=== PATIENT | male | born 1930 | race Caucasian/White ===

== ENCOUNTER 2016-11-03 05:47 | Emergency (ER) | payer MEDICARE ==
[~2016-11-03] VITALS: Ht 175.3 cm; Wt 60.0 kg
[~2016-11-03 05:47] MED LIST: AMLO5 PO; APIX5TAB PO; CITA10TA4 PO; FERR1TAB36 PO; LEVO75TA3 PO; OMEG100037 PO; PANT20TA2 PO; SIMV80TA PO; TOPR25TA PO; VITA100064 PO
[2016-11-03 06:06] VITALS: BP 151/76; PULSE 61; RESP 18; TEMP 98.2; O2SAT 99
[2016-11-03 06:12] VITALS: RESP 16
--- NOTE | 2016-11-03 06:13 | PD ---
HPI Chief Complaint: Fall Time Seen by Provider: 05:55 Travel History International Travel<30 days: No Contact w/Intl Traveler<30days: No Traveled to known affect area: No History of Present Illness HPI The patient is 86 year old male who presents to the [facility] emergency department with a history of reportedly falling at his snf prior to arrival. The snf staff reported to ambulance services they heard him fall. He has a history of an unsteady gait. The patient is on Eliquis for unknown reason, however the patient does have a history of complete heart block , bradycardia status post pacemaker placement. The patient was recently admitted to the hospital related to severe sepsis with positive blood cultures and an initial 2-D echo that showed possible heart valve vegetations, however a LEE was done which was negative for vegetations. The patient was discharged to the snf for rehabilitation. The patient was continued on Eliquis. The patient was noted prior to arrival to have a 2 cm laceration to the right baptism. The patient denies having any neck pain, however en route to this facility was complaining of neck pain to ambulance services. The patient reports having right shoulder pain currently. The patient's blood sugar prior to arrival was 106. According to ambulance services the patient also fell at the snf 3 days ago. The patient's vital signs prior to her arrival were reportedly unremarkable. The patient denies any other acute complaints currently, however the patient does have a known history of dementia. The patient is following all commands. He is oriented to person. COUNT INCLUDES THE [facility] Past Medical History Narrative Medical The patient's past medical history is significant for coronary artery disease, history of complete heart block status post pacemaker placement, history of being anticoagulated, history of lymphoma, arthritis, hyperlipidemia, acid reflux, hypertension. Hx Anticoagulant Therapy: Yes (ELIQUIS) Arthritis: Yes Autoimmune Disease: No Blood Disorders: No Cancer: Yes (NON HODGEKINS LYMPHOMA) Cardiovascular Problems: Yes (PACER) High Cholesterol: Yes Chemotherapy: Yes (11-02-03 TO 06-02-04) Diminished Hearing: No Endocrine: No Gastrointestinal Disorders: Yes GERD: Yes Genitourinary: Yes Hiatal Hernia: Yes Hypertension: Yes Musculoskeletal: Yes Neurologic: No Psychiatric: No Reproductive: No Respiratory: Yes (SINUS) Myocardial Infarction: Yes Radiation Therapy: Yes (2003) Thyroid Disease: Yes Past Surgical History Narrative Surgical The patient's past surgical history is significant for a total knee replacement on the left and right, pacemaker placement, right hip replacement, left hip replacement, prostate cancer related surgery, abdominal or uterine work aneurysm repair in March 2016. Cardiac Surgery: Yes (PACEMAKER PLACEMENT) Genitourinary Surgery: Yes Joint Replacement: Yes (BILAT HIP/BILAT KNEE) Pacemaker: Yes ([employer] 01/04/2015 REF#[id number] LOT#[id number]) Other Surgery: Yes (THROAT BX) Social History Alcohol Use: Yes (OCCASIONALLY) Tobacco Use: No (HX OF 1/2 PPD 25 YEARS AGO) Substance Use: No Allergies-Medications (Allergen,Severity, Reaction): Coded Allergies: No Known Allergies (Verified , 10/21/16) Reported Meds & Prescriptions Reported Meds & Active Scripts Active Reported Citalopram (Citalopram Hydrobromide) 10 Mg Tab 10 Mg PO DAILY Zocor (Simvastatin) 80 Mg Tab 80 Mg PO DAILY Eliquis (Apixaban) 5 Mg Tab 5 Mg PO BID Metoprolol Succinate ER 24 HR (Metoprolol Succinate) 25 Mg Tab 25 Mg PO DAILY [place]-3 Fish Oil/Vitamin (Fish Oil-Cholecalciferol) 1,000-1,000 Mg Cap 1 Cap PO DAILY Ferrous Sulfate 325 Mg Tab 325 Mg PO DAILY Levothyroxine (Levothyroxine Sodium) 75 Mcg Tab 75 Mcg PO DAILY Protonix (Pantoprazole Sodium) 20 Mg Tab 20 Mg PO DAILY Amlodipine (Amlodipine Besylate) 2.5 Mg Tab 2.5 Mg PO DAILY Review of Systems Except as stated in HPI: all other systems reviewed are Neg General / Constitutional: No: Fever Eyes: No: Visual changes HENT: Positive: Neck Pain, No: Headaches, Neck Stiffness Cardiovascular: No: Chest Pain or Discomfort Respiratory: No: Shortness of Breath Gastrointestinal: No: Abdominal Pain Genitourinary: No: Dysuria Musculoskeletal: No: Pain Skin: No Rash Neurologic: Positive: Headache, No: Weakness, Focal Abnormalities, Change in Mentation, Slurred Speech, Sensory Disturbance Psychiatric: No: Depression Endocrine: No: Polydipsia Hematologic/Lymphatic: No: Easy Bruising Physical Exam Narrative General: The patient is a well-developed well-nourished male in no acute distress. The patient is brought in by ambulance services in a cervical collar Head is normocephalic, evidence of trauma to the right baptism with a 2 cm laceration noted, no active bleeding.. No facial bone tenderness or increased facial bone mobility noted on palpation. Eyes: EOMI, pupils are equal round and reactive to light. Nose: Midline septum with pink mucous membranes Mouth: Dentition unremarkable. Moist mucus membranes. Posterior oropharynx is not erythematous. No tonsillar hypertrophy. Uvula midline. Airway patent. Neck: The patient is immobilized in a cervical collar. No tracheal deviation. The trachea appears midline. Cardiovascular: Regular rate and rhythm without murmurs, gallops, or rubs. Lungs: Clear to auscultation bilaterally. No wheezes, rhonchi, or rales. No chest wall tenderness to palpation. No erythema or ecchymosis noted. No crepitus , step off, or flail segment noted. Abdomen: Soft, without tenderness to palpation in all 4 quadrants of the abdomen. No guarding, rebound, or rigidity. Negative [place] sign. Extremities: No clubbing, cyanosis, or edema. 2+ pulses in all 4 extremities. No extremity tenderness or deformity noted on palpation or passive/ active range of motion, except in the area of interest, the right shoulder, the patient has no deformity or crepitus. The patient does however report tenderness on palpation of the deltoid area, proximal humerus on the right. The patient has less than 3 second capillary refill, intact sensation over all fingertips. Back: No spinous process tenderness to palpation. No costovertebral angle tenderness to palpation. No erythema or ecchymosis. Neurologic Exam: Cranial nerves 2-12 were intact on exam. Strength is 5/5 in all 4 extremities. No sensory deficits noted. Data Data Last Documented VS Vital Signs Date Time Temp Pulse Resp B/P Pulse Ox O2 Delivery O2 Flow Rate FiO2 11/03/16 06:12 16 Room Air 11/03/16 06:08 61 11/03/16 06:06 98.2 151/76 99 Orders Electrocardiogram (11/03/16 06:00) Complete Blood Count With Diff (11/03/16 06:00) Comprehensive Metabolic Panel (11/03/16 06:00) Prothrombin Time / Inr (Pt) (11/03/16 06:00) Act Partial Throm Time (Ptt) (11/03/16 06:00) Urinalysis - C+S If Indicated (11/03/16 06:00) Chest, Single Ap (11/03/16 06:00) Ct Brain W/O Iv Contrast(Rout) (11/03/16 06:00) Iv Access Insert/Monitor (11/03/16 06:00) Ecg Monitoring (11/03/16 06:00) Oximetry (11/03/16 06:00) Ct Cerv Spine W/O Contrast (11/03/16 ) Pelvis, Ap Only (Routine) (11/03/16 06:00) Shoulder, Complete (>2vws) (11/03/16 06:00) Cefazolin Inj (Ancef Inj) (11/03/16 06:15) Sodium Chlor 0.9% 1000 Ml Inj (Ns 1000 M (11/03/16 06:15) Lidocai-Epi 1%-1:100,000 Inj (Xylocaine- (11/03/16 06:15) Labs Laboratory Tests Test 11/03/16 06:12 White Blood Count 9.8 TH/MM3 Red Blood Count 4.45 MIL/MM3 Hemoglobin 12.2 GM/DL Hematocrit 37.1 % Mean Corpuscular Volume 83.3 FL Mean Corpuscular Hemoglobin 27.3 PG Mean Corpuscular Hemoglobin 32.8 % Concent Red Cell Distribution Width 17.5 % Platelet Count 187 TH/MM3 Mean Platelet Volume 8.4 FL Neutrophils (%) (Auto) 82.0 % Lymphocytes (%) (Auto) 5.4 % Monocytes (%) (Auto) 8.8 % Eosinophils (%) (Auto) 3.0 % Basophils (%) (Auto) 0.8 % Neutrophils # (Auto) 8.0 TH/MM3 Lymphocytes # (Auto) 0.5 TH/MM3 Monocytes # (Auto) 0.9 TH/MM3 Eosinophils # (Auto) 0.3 TH/MM3 Basophils # (Auto) 0.1 TH/MM3 CBC Comment DIFF FINAL Differential Comment Prothrombin Time 11.9 SEC Prothromb Time International 1.1 RATIO Ratio Activated Partial 26.7 SEC Thromboplast Time Sodium Level 137 MEQ/L Potassium Level 3.8 MEQ/L Chloride Level 102 MEQ/L Carbon Dioxide Level 24.9 MEQ/L Anion Gap 10 MEQ/L Blood Urea Nitrogen 22 MG/DL Creatinine 1.09 MG/DL Estimat Glomerular Filtration 64 ML/MIN Rate Random Glucose 105 MG/DL Calcium Level 9.0 MG/DL Total Bilirubin 0.6 MG/DL Aspartate Amino Transf 25 U/L (AST/SGOT) Alanine Aminotransferase 19 U/L (ALT/SGPT) Alkaline Phosphatase 134 U/L Total Protein 6.1 GM/DL Albumin 3.1 GM/DL MDM Medical Decision Making Medical Screen Exam Complete: Yes Emergency Medical Condition: Yes Medical Record Reviewed: Yes Differential Diagnosis Intracranial hemorrhage, versus cervical spine injury, versus facial laceration , versus intrathoracic trauma, versus pelvic trauma Narrative Course During the course of the patients emergency department visit, the patients history, examination, and differential diagnosis were reviewed with the patient. The patient had IV access obtained and blood work sent for analysis. The patient was placed on a faith doctor with oximetry and blood pressure monitoring. An EKG was done on arrival. The patient's EKG shows a paced rhythm of 64, no acute ST segment changes. The patient's electronic medical record was reviewed. A review of the electronic medical record reveals that he had his tetanus last updated at this facility in 2013. CT scan of the head and neck was ordered, chest x-ray, pelvic x-ray was ordered The patient was provided Ancef 1 g IV, normal saline at 75 mL per hour. The patients laboratory studies were reviewed and remarkable for a white count of 9.8, hemoglobin 12.2, platelets 187 with 82 neutrophils lymphocytes 5.4, monocytes 8.8, CMP is remarkable for BUN of 22, GFR 64, alkaline phosphatase 134 , albumin 3.1, PT 11.9, INR 1.1, PTT 26.7 Radiology studies were reviewed and remarkable for a right shoulder x-ray that shows a chronic rotator cuff injury, no acute abnormality, chest x-ray shows no acute abnormality, pelvic x-ray shows no acute abnormality. CT scan of the brain was read as showing no acute intracranial abnormality, atrophy and chronic small vessel ischemic change, small arachnoid cyst involving the left middle cranial fossa. CT scan of the C-spine showed no acute abnormality. The patient verbally consented to the repair and the laceration along the right baptism. This was repaired by me. The patient tolerated the procedure well. The patient will be discharged back to his [facility] facility for continued rehabilitation. The snf will again be instructed regarding the importance of close monitoring and fall precautions. The patient is resting comfortably and feels better, is alert and in no distress. The patients results and examination findings were discussed with the patient. The repeat examination is unremarkable and benign. The history, exam, diagnostic testing, and current condition do not suggest any significant pathology to warrant further testing, continued ED treatment, admission, or surgical evaluation at this point. The vital signs have been stable. The patient does not have uncontrollable pain, intractable vomiting, or other significant symptoms. The patient's condition is stable and appropriate for discharge. The patient will pursue further outpatient evaluation with a primary care physician or other designated or consulting physician as indicated in the discharge instructions. The patient expressed understanding and was agreeable with this plan. Procedures Procedure Narrative LACERATION LOCATION: Right baptism LENGTH: 2 cm NUMBER OF STITCHES/CARY: 5 sutures REPAIR: The area of the laceration was prepped with Betadine and sterilely draped. The laceration was infiltrated with 1% lidocaine with epinephrine, 4 cc. The wound was copiously irrigated and explored without evidence of foreign body, tendon injury or neurovascular injury. The wound was closed using 5-0 Ethilon. This was a single layer repair. A sterile dressing was applied. The patient was advised to keep the dressing clean and dry. Patient tolerated the procedure well. Diagnosis Primary Impression: Fall Qualified Code: W19.XXXA - Fall, initial encounter Additional Impression: Facial laceration Qualified Code: S01.81XA - Facial laceration, initial encounter Referrals: Primary Care Physician 1 day Patient Instructions: Facial Laceration (ED), Fall Prevention (ED), Fall Prevention for Older Adults (ED), General Instructions Additional Instructions: The patient is instructed to have sutures removed in 5 days. Med/Other Pt SpecificInfo: No Change to Meds Disposition: 03 DISCHARGE TO SNF Condition: Stable Zara Humphries MD Nov 03, 2016 06:13
[2016-11-03] MEDS ORDERED: SODIUM CHLOR 0.9% 1000 ML INJ 1,000 ML IV SCH (06:15)
[2016-11-03] MEDS ORDERED: LIDOCAINE 1%/EPINEPHrine 1:100,000 SOLN 20 ML VIAL INFIL ONE (06:15)
[2016-11-03 06:24] LABS: BASOPHIL # 0.1 TH/MM3 (0-0.2); BASOPHIL % 0.8 % (0.0-2.0); EOSINOPHIL # 0.3 TH/MM3 (0-0.4); HEMATOCRIT 37.1 % (39.0-51.0); HEMO FLAGS DIFF FINAL; LYMPH % 5.4 % (9.0-44.0); LYMPHOCYTE # 0.5 TH/MM3 (1.0-4.8); MEAN CELL VOLUME 83.3 FL (80.0-100.0); MEAN CORPUSCULAR HEMOGLOBIN 27.3 PG (27.0-34.0); MEAN CORPUSCULAR HGB CONC 32.8 % (32.0-36.0); MONO % 8.8 % (0.0-8.0); PLATELET COUNT 187 TH/MM3 (150-450); RED BLOOD COUNT 4.45 MIL/MM3 (4.50-5.90); RED CELL DISTRIBUTION WIDTH 17.5 % (11.6-17.2); WHITE BLOOD COUNT 9.8 TH/MM3 (4.0-11.0)
[2016-11-03] MEDS ORDERED: CITA10TA4 PO (06:26)
[2016-11-03] MEDS ORDERED: PANT20 PO (06:26)
[2016-11-03] MEDS ORDERED: LEVO75TA3 PO (06:26)
[2016-11-03] MEDS ORDERED: FERR325T PO (06:26)
[2016-11-03] MEDS ORDERED: ZOCO80TA PO (06:26)
[2016-11-03] MEDS ORDERED: AMLO2.5T PO (06:26)
[2016-11-03] MEDS ORDERED: APIX5TAB PO (06:26)
[2016-11-03] MEDS ORDERED: METO25TA6 PO (06:26)
[2016-11-03] MEDS ORDERED: OMEGCAP PO (06:26)
[2016-11-03 06:36] LABS: ALT (GPT) 19 U/L (12-78); ANION GAP 10 MEQ/L (5-15); APTT (PATIENT) 26.7 SEC (24.3-30.1); AST (GOT) 25 U/L (15-37); BICARBONATE 24.9 MEQ/L (21.0-32.0); BLOOD UREA NITROGEN 22 MG/DL (7-18); CHLORIDE 102 MEQ/L (98-107); GLOMERULAR FILTRATION RATE 64 ML/MIN (>89); INTERNATIONAL NORMALIZED RATIO 1.1 RATIO; POTASSIUM 3.8 MEQ/L (3.5-5.1); PROTHROMBIN TIME - PATIENT 11.9 SEC (9.8-11.6); SODIUM (NA) 137 MEQ/L (136-145)
[2016-11-03 06:38] LABS: ALKALINE PHOSPHATASE 134 U/L (45-117); TOTAL BILIRUBIN ADULT 0.6 MG/DL (0.2-1.0)
--- NOTE | 2016-11-03 06:59 | RADRPT ---
EXAM DATE/TIME: 11/03/2016 06:21 [facility] COMPARISON: CHEST SINGLE AP, October 21, 2016, 21:40. INDICATIONS : Pt fell, unknown injury. MEDICAL HISTORY : Hypertension. Myocardial infarction. Gastroesophageal reflux disease. Non-Hodgkins Lymphoma, Arth ritis SURGICAL HISTORY : Pacemaker. Throat biopsy ENCOUNTER: Initial ACUITY: 1 day PAIN SCORE: 8/10 LOCATION: Bilateral chest FINDINGS: A single portable frontal view the chest shows cardiomegaly with without pulmonary vascular engorgeme nt. No infiltrate or effusion. Pacing device overlies the left chest. Bony structures are unremarkabl e. CONCLUSION: No acute cardiopulmonary disease. Edouard Senior Jr., MD on November 03, 2016 at 6:57 Board Certified Radiologist. This report was verified electronically.
--- NOTE | 2016-11-03 07:00 | RADRPT ---
EXAM DATE/TIME: 11/03/2016 06:22 [facility] COMPARISON: No previous studies available for comparison. INDICATIONS : Pt fell, unknown injury. MEDICAL HISTORY : Hypertension. Myocardial infarction. Gastroesophageal reflux disease. Non-Hodgkins Lymphoma, Arth ritis SURGICAL HISTORY : Pacemaker. Throat biopsy ENCOUNTER: Initial ACUITY: 1 day PAIN SCORE: 9/10 LOCATION: Right Shoulder FINDINGS: 3 views of the right shoulder show a high riding humeral head. No fracture or dislocation. Degenerati ve changes involving a.c. joint ankle and the humeral joint. CONCLUSION: 1. No acute abnormality. 2. Chronic rotator cuff injury. Edouard Senior Jr., MD on November 03, 2016 at 6:58 Board Certified Radiologist. This report was verified electronically.
--- NOTE | 2016-11-03 07:01 | RADRPT ---
EXAM DATE/TIME: 11/03/2016 06:27 [facility] COMPARISON: PELVIS AP ONLY, October 14, 2014, 22:26. INDICATIONS : Pt fell, Unknown injury MEDICAL HISTORY : Hypertension. Myocardial infarction. Gastroesophageal reflux disease. Non-Hodgkins Lymphoma, Arth ritis SURGICAL HISTORY : Pacemaker. Throat biopsy ENCOUNTER: Initial ACUITY: 1 day PAIN SCORE: 8/10 LOCATION: Bilateral pelvis FINDINGS: 2 views of the pelvis reveal bilateral hip prostheses in good position. A degenerative lumbar spine. No fractures or dislocations. Atherosclerotic calcifications. Vascular stents and surgical clips over lie the pelvis. CONCLUSION: 1. No acute abnormality. Edouard Senior Jr., MD on November 03, 2016 at 6:59 Board Certified Radiologist. This report was verified electronically.
--- NOTE | 2016-11-03 07:08 | RADRPT ---
EXAM DATE/TIME: 11/03/2016 06:30 [facility] COMPARISON: CT BRAIN W/O CONTRAST, October 21, 2016, 21:35. INDICATIONS : Trauma; fall. RADIATION DOSE: 56.35 CTDIvol (mGy) MEDICAL HISTORY : Hypertension. Lymphoma. Cardiovascular disease SURGICAL HISTORY : Pacemaker. ENCOUNTER: Initial ACUITY: 1 day PAIN SCALE: 0/10 LOCATION: cranial TECHNIQUE: Multiple contiguous axial images were obtained of the head. Using automated exposure control and adj ustment of the mA and/or kV according to patient size, radiation dose was kept as low as reasonably a chievable to obtain optimal diagnostic quality images. FINDINGS: Atrophy. Periventricular low attenuation change involving both cerebral hemispheres. Small arachnoid cyst involving the middle cranial fossa on the left. This is stable. It measures approximately 3 cm. No hemorrhage, mass, or infarction. The ventricles are normal in size. Calvarium is intact. CONCLUSION: 1. No acute intracranial abnormality. 2. Atrophy and chronic small vessel ischemic change. 3. Small arachnoid cyst involving the left middle cranial fossa. Edouard Senior Jr., MD on November 03, 2016 at 7:00 Board Certified Radiologist. This report was verified electronically.
--- NOTE | 2016-11-03 07:12 | RADRPT ---
EXAM DATE/TIME: 11/03/2016 06:30 [facility] COMPARISON: No previous studies available for comparison. INDICATIONS : Trauma; fall. RADIATION DOSE: 34.77 CTDIvol (mGy) MEDICAL HISTORY : Hypertension. Lupus. Cardiovascular disease SURGICAL HISTORY : Pacemaker. ENCOUNTER: Initial ACUITY: 1 day PAIN SCALE: 0/10 LOCATION: neck TECHNIQUE: Volumetric scanning of the cervical spine was performed. Multiplanar reconstructions in the sagittal, coronal and oblique axial planes were performed. Using automated exposure control and adjustment o f the mA and/or kV according to patient size, radiation dose was kept as low as reasonably achievable to obtain optimal diagnostic quality images. FINDINGS: VERTEBRAE: Normal vertebral body height. ALIGNMENT: There is a grade 1 anterolisthesis of C4 on C5. Diffuse calcified plaque involving the carotid arteries bilaterally. C2-C3: The bony spinal canal is normal in size. No evidence of disc bulge or herniation. Bony uncovertebral hypertrophy is seen bilaterally generating bilateral neural foraminal narrowing. C3-C4: The bony spinal canal is normal in size. No evidence of disc bulge or herniation. Bony uncovertebral hypertrophy is seen bilaterally generating bilateral neural foraminal narrowing. C4-C5: The bony spinal canal is normal in size. No evidence of disc bulge or herniation. Bony uncovertebral hypertrophy is seen bilaterally generating bilateral neural foraminal narrowing. C5-C6: The bony spinal canal is normal in size. No evidence of disc bulge or herniation. Bony uncovertebral hypertrophy is seen bilaterally generating bilateral neural foraminal narrowing. C6-C7: The bony spinal canal is normal in size. No evidence of disc bulge or herniation. The neural forami na are bilaterally patent. C7-T1: The bony spinal canal is normal in size. No evidence of disc bulge or herniation. The neural forami na are bilaterally patent. CONCLUSION: 1. No fracture or dislocation. 2. Degenerative changes. 3. Significant carotid artery atherosclerotic calcifications. Edouard Senior Jr., MD on November 03, 2016 at 7:07 Board Certified Radiologist. This report was verified electronically.
[2016-11-03 11:09] VITALS: BP 148/76; PULSE 66; RESP 16; O2SAT 97
--- NOTE | 2016-11-03 18:25 | EKG ---
Date Performed: 11/03/2016 Time Performed: 05:58:40 PTAGE: 86 years EKG: ELECTRONIC VENTRICULAR PACEMAKER Since PREVIOUS TRACING , no significant change noted ABNORMAL RHYTHM ECG INTERPRETATION BASED O N A DEFAULT AGE OF 41 YEARS PREVIOUS TRACIN10/21/2016 22.23 DOCTOR: Kimberly Bronson Interpretating Date/Time 11/03/2016 18:23:38
== END 2016-11-03 11:10 ==
LOC: NEPE 05:47
DX: S01.81XA Laceration without foreign body of other part of head, initial encounter (principal); E78.00 Pure hypercholesterolemia, unspecified; I10 Essential (primary) hypertension; R94.31 Abnormal electrocardiogram [ECG] [EKG]; W18.39XA Other fall on same level, initial encounter; Y93.9 Activity, unspecified; Y92.129 Unspecified place in nursing home as the place of occurrence of the external cause; Z91.81 History of falling; Z79.01 Long term (current) use of anticoagulants
CPT/HCPCS: 12011; 70450; 71010; 72125; 72170; 73030; 80053; 85025; 85610; 85730; 93005; 96361; 96365; 99285; J0690; J7030

== ENCOUNTER 2016-11-11 16:28 | Inpatient (IN) | payer MEDICARE ==
[~2016-11-11] VITALS: Ht 177.8 cm; Wt 65.2 kg
[~2016-11-11 16:28] MED LIST changes: +AMLO2.5T PO; -FERR1TAB36 PO; +FERR325T PO; +METO25TA6 PO; -OMEG100037 PO; +OMEGCAP PO; +PANT20 PO; -PANT20TA2 PO; -SIMV80TA PO; -TOPR25TA PO; -VITA100064 PO; +ZOCO80TA PO
[2016-11-11 16:39] VITALS: BP 115/58; PULSE 63; RESP 17; TEMP 97.7; O2SAT 99
[2016-11-11 18:24] LABS: AUTOMATED NEUTROPHIL # 13.6 TH/MM3 (1.8-7.7); BASOPHIL % 0.2 % (0.0-2.0); EOSINOPHIL # 0.2 TH/MM3 (0-0.4); HEMATOCRIT 34.2 % (39.0-51.0); LYMPH % 1.7 % (9.0-44.0); LYMPHOCYTE # 0.3 TH/MM3 (1.0-4.8); MEAN CELL VOLUME 81.9 FL (80.0-100.0); MEAN CORPUSCULAR HEMOGLOBIN 26.5 PG (27.0-34.0); MEAN CORPUSCULAR HGB CONC 32.4 % (32.0-36.0); NEUT % 93.1 % (16.0-70.0); PLATELET COUNT 154 TH/MM3 (150-450); RED BLOOD COUNT 4.18 MIL/MM3 (4.50-5.90); RED CELL DISTRIBUTION WIDTH 17.8 % (11.6-17.2); WHITE BLOOD COUNT 14.7 TH/MM3 (4.0-11.0)
[2016-11-11 18:27] LABS: HEMO FLAGS AUTO DIFF
[2016-11-11 18:46] LABS: BICARBONATE 25.9 MEQ/L (21.0-32.0); POTASSIUM 3.2 MEQ/L (3.5-5.1)
[2016-11-11 18:59] LABS: BANDS 21 % (0-6); METAMYELOCYTES 1 % (0-1); NEUTROPHIL # MANUAL DIFF 14.1 TH/MM3 (1.8-7.7); OVALOCYTES 1+ (NORMAL); PLATELET ESTIMATE SMEAR NORMAL (NORMAL); PLATELET MORPHOLOGY NORMAL (NORMAL); POLYS (SEG NEUTROPHILS) 74 % (16-70); SCAN/DIFF FINAL DIFF MANUAL; WBC DIFF SAMPLE 100
[2016-11-11] MEDS ORDERED: PIPERACIL-TAZO 2.25 GM PREMIX 50 ML IV ONE (19:15)
[2016-11-11] MEDS ORDERED: VANCOMYCIN INJ 1,000 MG in SODIUM CHLOR 0.9% 250 ML INJ 250 ML IV ONE (19:15)
--- NOTE | 2016-11-11 19:15 | PD ---
HPI Chief Complaint: Abnormal Results Time Seen by Provider: 19:15 Travel History International Travel<30 days: No Contact w/Intl Traveler<30days: No Traveled to known affect area: No History of Present Illness HPI 86 year old male with history of CAD, pacemaker placement, AAA status post repair in March 2016, dementia, lymphoma first diagnosed 14-15 years ago, acid reflux, hypothyroid disorder, left foot drop, osteoarthritis,and of skin cancer presents to the ED for evaluation from rehab. Per evac report the pt is dehydrated and staff was unable to administer IV fluids there, so he was to come here for IVF and labs. Pt does have a history of dementia and is a very poor historian. He appears weak and is very soft spoken; difficult to hear and understand. He had a previous admission 10/21/2016-10/30/2016 for sepsis. MSSA + blood cultures. Pt was to be discharged on IV cefazolin 2g every 8 hours until November 09. PFSH Past Medical History Hx Anticoagulant Therapy: Yes (ELIQUIS) Arthritis: Yes Autoimmune Disease: No Blood Disorders: No Cancer: Yes (NON H[place]GEKINS LYMPHOMA) Cardiovascular Problems: Yes (PACER) High Cholesterol: Yes Chemotherapy: Yes (11-02-03 TO 06-02-04) Diminished Hearing: No Endocrine: No Gastrointestinal Disorders: Yes GERD: Yes Genitourinary: Yes Hiatal Hernia: Yes Hypertension: Yes Musculoskeletal: Yes Neurologic: No Psychiatric: No Reproductive: No Respiratory: Yes (SINUS) Myocardial Infarction: Yes Radiation Therapy: Yes (2003) Thyroid Disease: Yes Past Surgical History Cardiac Surgery: Yes (PACEMAKER PLACEMENT) Genitourinary Surgery: Yes Joint Replacement: Yes (BILAT HIP/BILAT KNEE) Pacemaker: Yes ([employer] 01/04/2015 REF#[id number] LOT#[id number]) Other Surgery: Yes (THROAT BX) Social History Alcohol Use: Yes (OCCASIONALLY) Tobacco Use: No (HX OF 1/2 PPD 25 YEARS AGO) Substance Use: No Allergies-Medications (Allergen,Severity, Reaction): Coded Allergies: No Known Allergies (Verified , 10/21/16) Reported Meds & Prescriptions Reported Meds & Active Scripts Active Norvasc (Amlodipine Besylate) 5 Mg Tab 2.5 Mg PO DAILY Reported Citalopram (Citalopram Hydrobromide) 10 Mg Tab 10 Mg PO DAILY Zocor (Simvastatin) 80 Mg Tab 80 Mg PO DAILY Eliquis (Apixaban) 5 Mg Tab 5 Mg PO BID Metoprolol Succinate ER 24 HR (Metoprolol Succinate) 25 Mg Tab 25 Mg PO DAILY [place]-3 Fish Oil/Vitamin (Fish Oil-Cholecalciferol) 1,000-1,000 Mg Cap 1 Cap PO DAILY Ferrous Sulfate 325 Mg Tab 325 Mg PO DAILY Levothyroxine (Levothyroxine Sodium) 75 Mcg Tab 75 Mcg PO DAILY Protonix (Pantoprazole Sodium) 20 Mg Tab 20 Mg PO DAILY Amlodipine (Amlodipine Besylate) 2.5 Mg Tab 2.5 Mg PO DAILY Review of Systems ROS Limitations: Altered Mental Status Except as stated in HPI: all other systems reviewed are Neg Physical Exam Narrative GENERAL: Well-nourished elderly male patient, lying in bed, in no acute distress SKIN: Warm and dry. well approximated, healing 2cm laceration lateral to the right eyebrow with resolving right periorbital ecchymosis HEAD: Atraumatic. Normocephalic. EYES: Pupils equal and round. No scleral icterus. No injection or drainage. ENT: No nasal bleeding or discharge. Mucous membranes pink and dry. . NECK: Trachea midline. No JVD. CARDIOVASCULAR: Regular rate and rhythm. RESPIRATORY: No accessory muscle use. Diminished, likely due to poor inspiration effort. Breath sounds equal bilaterally. GASTROINTESTINAL: Abdomen soft, non-tender, nondistended. Hepatic and splenic margins not palpable. MUSCULOSKELETAL: No obvious deformities. No clubbing. No cyanosis. No edema. NEUROLOGICAL: Awake and alert. Oriented to self. No obvious cranial nerve deficits. Motor grossly within normal limits. Data Data Last Documented VS Vital Signs Date Time Temp Pulse Resp B/P Pulse Ox O2 Delivery O2 Flow Rate FiO2 11/11/16 20:47 98 Room Air 11/11/16 19:56 98.7 80 18 112/60 Orders Complete Blood Count With Diff (11/11/16 17:06) Basic Metabolic Panel (Bmp) (11/11/16 17:06) Electrocardiogram (11/11/16 19:05) Lactic Acid Sepsis Protocol (11/11/16 19:05) Ckmb (Isoenzyme) Profile (11/11/16 19:05) Troponin I (11/11/16 19:05) Urinalysis - C+S If Indicated (11/11/16 19:05) Blood Culture (11/11/16 19:05) Chest, Single Ap (11/11/16 19:05) Blood Glucose (11/11/16 19:05) Ecg Monitoring (11/11/16 19:05) Iv Access Insert/Monitor (11/11/16 19:05) Oximetry (11/11/16 19:05) Oxygen Administration (11/11/16 19:05) Piperacil-Tazo 2.25 Gm Premix (Zosyn 2.2 (11/11/16 19:15) Vancomycin Inj (Vancomycin Inj) (11/11/16 19:15) C Diff Toxin Pcr (11/11/16 19:43) Cath For Specimen (11/11/16 19:48) Admit Order (Ed Use Only) (11/11/16 21:10) Labs Laboratory Tests Test 11/11/16 11/11/16 11/11/16 18:05 19:50 20:50 White Blood Count 14.7 TH/MM3 Red Blood Count 4.18 MIL/MM3 Hemoglobin 11.1 GM/DL Hematocrit 34.2 % Mean Corpuscular Volume 81.9 FL Mean Corpuscular Hemoglobin 26.5 PG Mean Corpuscular Hemoglobin 32.4 % Concent Red Cell Distribution Width 17.8 % Platelet Count 154 TH/MM3 Mean Platelet Volume 8.0 FL Neutrophils (%) (Auto) 93.1 % Lymphocytes (%) (Auto) 1.7 % Monocytes (%) (Auto) 4.0 % Eosinophils (%) (Auto) 1.0 % Basophils (%) (Auto) 0.2 % Neutrophils # (Auto) 13.6 TH/MM3 Lymphocytes # (Auto) 0.3 TH/MM3 Monocytes # (Auto) 0.6 TH/MM3 Eosinophils # (Auto) 0.2 TH/MM3 Basophils # (Auto) 0.0 TH/MM3 CBC Comment AUTO DIFF Differential Total Cells 100 Counted Neutrophils % (Manual) 74 % Band Neutrophils % 21 % Lymphocytes % 2 % Monocytes % 2 % Neutrophils # (Manual) 14.1 TH/MM3 Metamyelocytes 1 % Differential Comment FINAL DIFF MANUAL Platelet Estimate NORMAL Platelet Morphology Comment NORMAL Ovalocytes 1+ Sodium Level 147 MEQ/L Potassium Level 3.2 MEQ/L Chloride Level 113 MEQ/L Carbon Dioxide Level 25.9 MEQ/L Anion Gap 8 MEQ/L Blood Urea Nitrogen 47 MG/DL Creatinine 1.25 MG/DL Estimat Glomerular Filtration 55 ML/MIN Rate Random Glucose 112 MG/DL Calcium Level 8.9 MG/DL Lactic Acid Level 1.2 mmol/L Total Creatine Kinase 86 U/L Troponin I 0.03 NG/ML Urine Color YELLOW Urine Turbidity HAZY Urine pH 6.0 Urine Specific [place] 1.017 Urine Protein TRACE mg/dL Urine Glucose (UA) NEG mg/dL Urine Ketones NEG mg/dL Urine Occult Blood MOD Urine Nitrite POS Urine Bilirubin NEG Urine Urobilinogen LESS THAN 2.0 MG/DL Urine Leukocyte Esterase LARGE Urine RBC 155 /hpf Urine WBC /hpf Urine WBC Clumps RARE Urine Squamous Epithelial <1 /hpf Cells Urine Bacteria MANY /hpf Microscopic Urinalysis Comment CATH-CULTURE IND MDM Medical Decision Making Medical Screen Exam Complete: Yes Emergency Medical Condition: Yes Medical Record Reviewed: Yes Differential Diagnosis Dehydration versus electrolyte abnormality versus UTI versus bacteremia versus pneumonia versus sepsis Narrative Course 86-year-old male presents to the emergency department for evaluation of possible dehydration and lab recheck. Patient is in rehabilitation. History of dementia. He is a poor historian. He is oriented to self. Patient is afebrile. Vital signs are stable. CBC is a leukocytosis of 14.7, left shift, neutrophil count of 13.6, bandemia of 21. BMP is with sodium of 147, potassium 3.2. Healing is 47. Lactic acid is 1.2. Troponin is 0.03. Urine has not yet been collected. Patient is covered with vancomycin and Zosyn for suspected sepsis, unknown source. Chest x-ray is without acute cardiopulmonary disease. I spoke with Dr. Humphries, my attending physician who also assessed the patient. I placed a call to Dr. Corado, the patient's attending. I spoke with Dr. Corado, urinalysis is not yet complete. Patient will be admitted to his service. Urinalysis is hazy with moderate local blood, positive nitrate, large leukocyte esterase, 155 RBC, innumerable WBC, rare WBC clumps, many bacteria. Culture is indicated. Sepsis Criteria SIRS Criteria (2 or more): WBC > 44529, < 4000 or > 10% bands Diagnosis Primary Impression: UTI (urinary tract infection) Qualified Code: N30.01 - Acute cystitis with hematuria Additional Impression: Hypokalemia Admitting Information Admitting Physician Requests: Admit Condition: Stable Eusebia Moran Nov 11, 2016 19:15
--- NOTE | 2016-11-11 19:35 | RADRPT ---
EXAM DATE/TIME: 11/11/2016 19:22 [facility] COMPARISON: CHEST SINGLE AP, November 03, 2016, 6:21. INDICATIONS : Short of breath. MEDICAL HISTORY : Hypertension. Myocardial infarction. Gastroesophageal reflux disease. Non- SURGICAL HISTORY : Pacemaker. ENCOUNTER: Initial ACUITY: 1 day PAIN SCORE: Non-responsive. LOCATION: Bilateral chest FINDINGS: Cardiomegaly. Clear lungs. Pacer device from a left subclavian transvenous approach noted. High ridin g humeral heads. Aortic calcification. CONCLUSION: No acute disease. Cuong Calderon MD on November 11, 2016 at 19:34 Board Certified Radiologist. This report was verified electronically.
[2016-11-11 19:56] VITALS: BP 112/60; PULSE 80; RESP 18; TEMP 98.7; O2SAT 98
[2016-11-11 20:47] VITALS: O2SAT 98
--- NOTE | 2016-11-11 20:56 | PD ---
Physical Exam Narrative General: The patient is, thin appearing male, in no acute distress. Head and Neck exam: Head is normocephalic atraumatic. The patient has older appearing abrasions over her forehead. Eyes: Pupils are equal round and reactive to light. Nose: Midline septum with pink mucous membranes Mouth: Dentition unremarkable. Moist mucus membranes. Posterior oropharynx is not erythematous. No tonsillar hypertrophy. Uvula midline. Airway patent. Neck: No palpable lymphadenopathy. No nuchal rigidity. No thyromegaly. Cardiovascular: Regular rate and rhythm without murmurs, gallops, or rubs. Lungs: Clear to auscultation bilaterally. No wheezes, rhonchi, or rales. Abdomen: Soft, without tenderness to palpation in all 4 quadrants of the abdomen. No guarding, rebound, or rigidity. Normal bowel sounds are audible. Extremities: No clubbing, cyanosis, or edema. 2+ pulses in all 4 extremities. Back: No spinous process tenderness to palpation. No costovertebral angle tenderness to palpation. Neurologic Exam: Cranial nerves 2-12 were intact on exam. Strength is 5/5 in all 4 extremities. No sensory deficits noted. The patient is oriented to person, however not place , time, or situation. Data Data Last Documented VS Vital Signs Date Time Temp Pulse Resp B/P Pulse Ox O2 Delivery O2 Flow Rate FiO2 11/11/16 21:08 62 15 138/64 97 Room Air 11/11/16 19:56 98.7 Orders Complete Blood Count With Diff (11/11/16 17:06) Basic Metabolic Panel (Bmp) (11/11/16 17:06) Electrocardiogram (11/11/16 19:05) Lactic Acid Sepsis Protocol (11/11/16 19:05) Ckmb (Isoenzyme) Profile (11/11/16 19:05) Troponin I (11/11/16 19:05) Urinalysis - C+S If Indicated (11/11/16 19:05) Blood Culture (11/11/16 19:05) Chest, Single Ap (11/11/16 19:05) Blood Glucose (11/11/16 19:05) Ecg Monitoring (11/11/16 19:05) Iv Access Insert/Monitor (11/11/16 19:05) Oximetry (11/11/16 19:05) Oxygen Administration (11/11/16 19:05) Piperacil-Tazo 2.25 Gm Premix (Zosyn 2.2 (11/11/16 19:15) Vancomycin Inj (Vancomycin Inj) (11/11/16 19:15) C Diff Toxin Pcr (11/11/16 19:43) Cath For Specimen (11/11/16 19:48) Admit Order (Ed Use Only) (11/11/16 21:10) Labs Laboratory Tests Test 11/11/16 11/11/16 11/11/16 11/11/16 18:05 19:50 20:50 21:07 White Blood Count 14.7 TH/MM3 Red Blood Count 4.18 MIL/MM3 Hemoglobin 11.1 GM/DL Hematocrit 34.2 % Mean Corpuscular Volume 81.9 FL Mean Corpuscular Hemoglobin 26.5 PG Mean Corpuscular Hemoglobin 32.4 % Concent Red Cell Distribution Width 17.8 % Platelet Count 154 TH/MM3 Mean Platelet Volume 8.0 FL Neutrophils (%) (Auto) 93.1 % Lymphocytes (%) (Auto) 1.7 % Monocytes (%) (Auto) 4.0 % Eosinophils (%) (Auto) 1.0 % Basophils (%) (Auto) 0.2 % Neutrophils # (Auto) 13.6 TH/MM3 Lymphocytes # (Auto) 0.3 TH/MM3 Monocytes # (Auto) 0.6 TH/MM3 Eosinophils # (Auto) 0.2 TH/MM3 Basophils # (Auto) 0.0 TH/MM3 CBC Comment AUTO DIFF Differential Total Cells 100 Counted Neutrophils % (Manual) 74 % Band Neutrophils % 21 % Lymphocytes % 2 % Monocytes % 2 % Neutrophils # (Manual) 14.1 TH/MM3 Metamyelocytes 1 % Differential Comment FINAL DIFF MANUAL Platelet Estimate NORMAL Platelet Morphology Comment NORMAL Ovalocytes 1+ Sodium Level 147 MEQ/L Potassium Level 3.2 MEQ/L Chloride Level 113 MEQ/L Carbon Dioxide Level 25.9 MEQ/L Anion Gap 8 MEQ/L Blood Urea Nitrogen 47 MG/DL Creatinine 1.25 MG/DL Estimat Glomerular Filtration 55 ML/MIN Rate Random Glucose 112 MG/DL Calcium Level 8.9 MG/DL Lactic Acid Level 1.2 mmol/L Total Creatine Kinase 86 U/L Troponin I 0.03 NG/ML Urine Color YELLOW Urine Turbidity HAZY Urine pH 6.0 Urine Specific [place] 1.017 Urine Protein TRACE mg/dL Urine Glucose (UA) NEG mg/dL Urine Ketones NEG mg/dL Urine Occult Blood MOD Urine Nitrite POS Urine Bilirubin NEG Urine Urobilinogen LESS THAN 2.0 MG/DL Urine Leukocyte Esterase LARGE Urine RBC 155 /hpf Urine WBC /hpf Urine WBC Clumps RARE Urine Squamous Epithelial <1 /hpf Cells Urine Bacteria MANY /hpf Microscopic Urinalysis Comment CATH-CULTURE IND Stool C. difficile Toxin (PCR) POSITIVE Stl C. difficile Toxin PRESUMPTIVE Epiderm 027 POSITIVE MDM Medical Record Reviewed: Yes Supervised Visit with JUAN LUIS: Yes Interpretation(s) Last Impressions Chest X-Ray 11/11/161904 Signed Impressions: Service Date/Time: Friday, November 11, 2016 19:22 - CONCLUSION: No acute disease. Cuong Calderon MD Differential Diagnosis Sepsis related to urinary tract infection, versus pneumonia, versus bacteremia Narrative Course I, Dr. Humphries, have reviewed the advance practice practitioner's documentation and am in agreement, met with the patient face to face, made the diagnosis, and the medical decision making was done by me. The patient was initially evaluated by Eusebia. Please see her complete history and physical. *My assessment and Findings: The patient is an 86-year-old male who presents to [facility] emergency Department with a history of dehydration, with difficulty obtaining access for IV fluid resuscitation at care home. The patient is clinically dehydrated on examination. Laboratory studies were ordered at this facility including a urinalysis and chest x-ray. The patient was started on normal saline a 500 mL bolus 1. After hypokalemia was noted on blood work the patient was given potassium supplementation orally. The patient' s white blood cell count was noted to be elevated, therefore the patient was started on antibiotic coverage for possible sepsis with unknown source to include Zosyn and vancomycin. The patients laboratory studies were reviewed and remarkable for a white count of 14.7, hemoglobin 11.1, platelets 150/93.1 neutrophils, lymphocytes 1.7metabolic profile is remarkable for sodium of 147, potassium 3.2, chloride 113, BUN is 47, creatinine 1.25, glucose 112. Cardec enzymes are within normal limits, lactic acid 1.2. Radiology studies were reviewed and remarkable for a chest x-ray that is unremarkable. The patients results were discussed with the patient, including the plan of care. I explained that further testing and/ or monitoring is indicated based on the patients history, examination, and/ or laboratory findings. Therefore, I recommended admission for additional evaluation. The patient expressed understanding and was agreeable with this plan. The patient was admitted to the hospital in [-] condition and sent to a bed under the care of Dr. Corado. Sepsis Criteria SIRS Criteria (2 or more): WBC > 44525, < 4000 or > 10% bands Admitting Information Admitting Physician Requests: Admit Zara Humphries MD Nov 11, 2016 20:56
[2016-11-11 21:08] VITALS: BP 138/64; PULSE 62; RESP 15; O2SAT 97
[2016-11-11] MEDS ORDERED: POTASSIUM CHLORIDE 20 MEQ CONTROLLED RELEASE TAB PO ONE (21:15)
[2016-11-11] MEDS ORDERED: SODIUM CHLORID 0.9% 500 ML INJ 500 ML IV ONE (21:15)
[2016-11-11 21:26] LABS: BACTERIA, URINE MANY /hpf; BLOOD, URINE MOD (NEG); GLUCOSE,URINE NEG (NEG); KETONE, URINE NEG (NEG); SQUAMOUS EPITHELIAL CELL URINE <1 /hpf (0-5); URINE COLOR YELLOW (YELLW/STRAW)
[2016-11-11 21:27] LABS: COMMENT (UR) CATH-CULTURE IND; CULTURE IF INDICATED CATH CULTURE IND; NITRITE,URINE POS (NEG)
[2016-11-11] MEDS ORDERED: SODIUM CHLORIDE 0.9% FLUSH 5 ML FLUSH FLUSH PRN (21:45)
[2016-11-11] MEDS ORDERED: NALOXONE HCL 0.4 MG/ML AMP IV PRN (21:45)
[2016-11-11] MEDS ORDERED: D31000CA PO (22:46)
[2016-11-11] MEDS ORDERED: ALPR0.25 PO (22:46)
[2016-11-11] MEDS ORDERED: RISP1 PO (22:46)
[2016-11-12] VITALS (8 sets, daily range): BP systolic 105–161; BP diastolic 52–75; PULSE 62–75; RESP 16–20; TEMP 97.4–97.8; O2SAT 92–99
[2016-11-12 00:41] LABS: C. DIFF EPI 027 PRESUMPTIVE POSITIVE (NEGATIVE)
[2016-11-12 00:43] LABS: C. DIFF TOXIN PCR POSITIVE (NEGATIVE)
[2016-11-12 05:22] LABS: BASOPHIL % 0.2 % (0.0-2.0); EOSINOPHIL # 0.2 TH/MM3 (0-0.4); EOSINOPHIL % 1.4 % (0.0-4.0); HEMATOCRIT 32.9 % (39.0-51.0); LYMPH % 2.2 % (9.0-44.0); LYMPHOCYTE # 0.3 TH/MM3 (1.0-4.8); MEAN CELL VOLUME 82.2 FL (80.0-100.0); MEAN CORPUSCULAR HEMOGLOBIN 26.2 PG (27.0-34.0); MEAN CORPUSCULAR HGB CONC 31.8 % (32.0-36.0); MONO % 4.1 % (0.0-8.0); NEUT % 92.1 % (16.0-70.0); PLATELET COUNT 131 TH/MM3 (150-450); RED CELL DISTRIBUTION WIDTH 17.7 % (11.6-17.2)
[2016-11-12 05:48] LABS: ALKALINE PHOSPHATASE 132 U/L (45-117); ALT (GPT) 22 U/L (12-78); ANION GAP 10 MEQ/L (5-15); AST (GOT) 15 U/L (15-37); BICARBONATE 21.1 MEQ/L (21.0-32.0); BLOOD UREA NITROGEN 43 MG/DL (7-18); CHLORIDE 118 MEQ/L (98-107); GLOMERULAR FILTRATION RATE 73 ML/MIN (>89); SODIUM (NA) 149 MEQ/L (136-145); TOTAL BILIRUBIN ADULT 0.5 MG/DL (0.2-1.0)
[2016-11-12 06:38] LABS: HEMO FLAGS AUTO DIFF
[2016-11-12] MEDS: SODIUM CHLOR 0.9% 1000 ML INJ 1,000 ML IV SCH ×2 (07:08→18:55)
[2016-11-12] MEDS: VANCOMYCIN 500 MG VIAL (FOR ORAL USE ONLY) PO SCH ×4 (09:00→21:14)
[2016-11-12] MEDS: SODIUM CHLORIDE 0.9% FLUSH 5 ML FLUSH FLUSH SCH ×2 (09:00→19:30)
[2016-11-12 09:30] LABS: BANDS 15 % (0-6); NEUTROPHIL # MANUAL DIFF 12.5 TH/MM3 (1.8-7.7); POLYS (SEG NEUTROPHILS) 81 % (16-70); WBC DIFF SAMPLE 100
[2016-11-12 09:31] LABS: OVALOCYTES 1+ (NORMAL); PLATELET ESTIMATE SMEAR LOW (NORMAL); PLATELET MORPHOLOGY NORMAL (NORMAL); SCAN/DIFF FINAL DIFF MANUAL
--- NOTE | 2016-11-12 13:35 | HHI.HP ---
History of Present Illness Service Family practice Primary Care Physician Followed by Dr. Corado at [facility] Admission Diagnosis leukocytosis; bandemia; dehydration Diagnoses: History of Present Illness 86 year old male with history of CAD, pacemaker placement, AAA status post repair in March 2016, dementia, lymphoma first diagnosed 14-15 years ago, acid reflux, hypothyroid disorder, left foot drop, osteoarthritis,and of skin cancer presents to the ED for evaluation from rehab. Patient is followed by Dr. Corado at [facility]. Patient has been have increased agitation over the past 2 weeks. He has gradually become more lethargic and is now dehydrated and Rehab was unable to adminster IV fluids. He appears weak and is very soft spoken; difficult to hear and understand. He had a previous admission 2015-10/30/2016 for sepsis. MSSA+ blood cultures. Blood cultures are thus far negative. UA appears positive for UTI. Review of Systems ROS Limitations: Altered Mental Status, Poor Historian Constitutional: COMPLAINS OF: Fatigue, Change in appetite Respiratory: DENIES: Cough, Sputum production, Shortness of breath Cardiovascular: DENIES: Chest pain, Palpitations, Syncope, Lower Extremity Edema Gastrointestinal: COMPLAINS OF: Diarrhea, DENIES: Abdominal pain Psychiatric: COMPLAINS OF: Anxiety, Confusion Past Family Social History Allergies: Coded Allergies: No Known Allergies (Verified , 10/21/16) Past Medical History Hx Anticoagulant Therapy: Yes (ELIQUIS) Arthritis: Yes Autoimmune Disease: No Blood Disorders: No Cancer: Yes (NON HODGEKINS LYMPHOMA) Cardiovascular Problems: Yes (PACER) High Cholesterol: Yes Chemotherapy: Yes (11-02-03 TO 06-02-04) Diminished Hearing: No Endocrine: No Gastrointestinal Disorders: Yes GERD: Yes Genitourinary: Yes Hiatal Hernia: Yes Hypertension: Yes Musculoskeletal: Yes Neurologic: No Psychiatric: No Reproductive: No Respiratory: Yes (SINUS) Myocardial Infarction: Yes Radiation Therapy: Yes (2003) Thyroid Disease: Yes Past Surgical History Pacemaker- [employer] 01/04/2015 REF#[id number] LOT#[id number] Bilateral knee replacement Throat BX Reported Medications Reported Meds & Active Scripts Active Reported D3 (Cholecalciferol) 1,000 Unit Cap Risperdal (Risperidone) 1 Mg Tab 1 Mg PO Q12HR Alprazolam 0.25 Mg Tab 0.25 Mg PO Q8H PRN Citalopram (Citalopram Hydrobromide) 10 Mg Tab 10 Mg PO DAILY Zocor (Simvastatin) 80 Mg Tab 80 Mg PO DAILY Eliquis (Apixaban) 5 Mg Tab 5 Mg PO BID Metoprolol Succinate ER 24 HR (Metoprolol Succinate) 25 Mg Tab 25 Mg PO DAILY Seltzer-3 Fish Oil/Vitamin (Fish Oil-Cholecalciferol) 1,000-1,000 Mg Cap 1 Cap PO DAILY Ferrous Sulfate 325 Mg Tab 325 Mg PO DAILY Levothyroxine (Levothyroxine Sodium) 75 Mcg Tab 75 Mcg PO DAILY Protonix (Pantoprazole Sodium) 20 Mg Tab 20 Mg PO DAILY Amlodipine (Amlodipine Besylate) 2.5 Mg Tab 2.5 Mg PO DAILY Active Ordered Medications Current Medications Medications (Trade) Dose Ordered Sig/Marcie Route Start Time Stop Time Status Last Admin (NS Flush) 2 ml UNSCH PRN FLUSH 11/11/16 21:45 (NS Flush) 2 ml BID FLUSH 11/12/16 09:00 Naloxone HCl 0.4 mg 0.4 mg UNSCH PRN IV 11/11/16 21:45 (NS 1000 ml Inj) 1,000 ml @ 84 mls/hr [id number] IV 11/12/16 07:00 11/12/16 07:08 Vancomycin HCl 125 mg 125 mg QID PO 11/12/16 09:00 Potassium Chloride/Dextrose/ Sod Cl 1,000 ml @ 84 mls/hr [id number] IV 11/12/16 13:15 UNV (Rocephin Inj/NS Inj) 100 ml @ 200 mls/hr Q24H IV 11/12/16 13:15 11/17/16 09:00 UNV (Eliquis) 5 mg BID PO 11/12/16 21:00 UNV (Synthroid) 75 mcg DAILY PO 11/13/16 09:00 UNV (Protonix) 20 mg DAILY PO 11/13/16 09:00 UNV Family History Unable to obtain Social History Poor historian. Physical Exam Vital Signs Vital Signs Date Time Temp Pulse Resp B/P Pulse Ox O2 Delivery O2 Flow Rate FiO2 11/12/16 12:59 63 18 105/52 98 Room Air 11/12/16 09:00 75 18 124/68 98 Room Air 11/12/16 04:17 64 20 121/75 98 Room Air 11/12/16 01:30 66 20 120/71 98 Room Air 11/11/16 21:08 62 15 138/64 97 Room Air 11/11/16 21:08 97 Room Air 11/11/16 20:47 98 Room Air 11/11/16 19:56 98.7 80 18 112/60 98 Room Air 11/11/16 16:39 97.7 63 17 115/58 99 Physical Exam GENERAL: This is a thin male in no apparent distress. SKIN: Cool and dry. Skin lesions noted on face. Sutures present from fall. HEAD: Atraumatic. Normocephalic. EYES: Pupils equal round and reactive. NECK: Trachea midline. No JVD. CARDIOVASCULAR: Regular rate and rhythm without murmurs, gallops, or rubs. RESPIRATORY: Clear to auscultation. Breath sounds equal bilaterally. No wheezes , rales, or rhonchi. GASTROINTESTINAL: Abdomen soft, non-tender, nondistended. MUSCULOSKELETAL: Extremities without cyanosis or edema.s. Negative Homans sign bilaterally. NEUROLOGICAL: Lethargic. Speech is quiet and difficult to understand. Laboratory Laboratory Tests Test 11/11/16 11/11/16 11/11/16 11/11/16 18:05 19:50 20:50 21:07 White Blood Count 14.7 Red Blood Count 4.18 Hemoglobin 11.1 Hematocrit 34.2 Mean Corpuscular Volume 81.9 Mean Corpuscular Hemoglobin 26.5 Mean Corpuscular Hemoglobin 32.4 Concent Red Cell Distribution Width 17.8 Platelet Count 154 Mean Platelet Volume 8.0 Neutrophils (%) (Auto) 93.1 Lymphocytes (%) (Auto) 1.7 Monocytes (%) (Auto) 4.0 Eosinophils (%) (Auto) 1.0 Basophils (%) (Auto) 0.2 Neutrophils # (Auto) 13.6 Lymphocytes # (Auto) 0.3 Monocytes # (Auto) 0.6 Eosinophils # (Auto) 0.2 Basophils # (Auto) 0.0 CBC Comment AUTO DIFF Differential Total Cells 100 Counted Neutrophils % (Manual) 74 Band Neutrophils % 21 Lymphocytes % 2 Monocytes % 2 Neutrophils # (Manual) 14.1 Metamyelocytes 1 Differential Comment FINAL DIFF MANUAL Platelet Estimate NORMAL Platelet Morphology Comment NORMAL Ovalocytes 1+ Sodium Level 147 Potassium Level 3.2 Chloride Level 113 Carbon Dioxide Level 25.9 Anion Gap 8 Blood Urea Nitrogen 47 Creatinine 1.25 Estimat Glomerular Filtration 55 Rate Random Glucose 112 Calcium Level 8.9 Lactic Acid Level 1.2 Total Creatine Kinase 86 Troponin I 0.03 Urine Color YELLOW Urine Turbidity HAZY Urine pH 6.0 Urine Specific Benson 1.017 Urine Protein TRACE Urine Glucose (UA) NEG Urine Ketones NEG Urine Occult Blood MOD Urine Nitrite POS Urine Bilirubin NEG Urine Urobilinogen LESS THAN 2.0 Urine Leukocyte Esterase LARGE Urine RBC 155 Urine WBC Urine WBC Clumps RARE Urine Squamous Epithelial <1 Cells Urine Bacteria MANY Microscopic Urinalysis Comment CATH-CULTURE IND Stool C. difficile Toxin (PCR) POSITIVE Stl C. difficile Toxin PRESUMPTIVE Epiderm 027 POSITIVE Test 11/12/16 04:51 White Blood Count 13.0 Red Blood Count 4.00 Hemoglobin 10.5 Hematocrit 32.9 Mean Corpuscular Volume 82.2 Mean Corpuscular Hemoglobin 26.2 Mean Corpuscular Hemoglobin 31.8 Concent Red Cell Distribution Width 17.7 Platelet Count 131 Mean Platelet Volume 8.2 Neutrophils (%) (Auto) 92.1 Lymphocytes (%) (Auto) 2.2 Monocytes (%) (Auto) 4.1 Eosinophils (%) (Auto) 1.4 Basophils (%) (Auto) 0.2 Neutrophils # (Auto) 12.0 Lymphocytes # (Auto) 0.3 Monocytes # (Auto) 0.5 Eosinophils # (Auto) 0.2 Basophils # (Auto) 0.0 CBC Comment AUTO DIFF Differential Total Cells 100 Counted Neutrophils % (Manual) 81 Band Neutrophils % 15 Lymphocytes % 1 Monocytes % 3 Neutrophils # (Manual) 12.5 Differential Comment FINAL DIFF MANUAL Platelet Estimate LOW Platelet Morphology Comment NORMAL Ovalocytes 1+ Sodium Level 149 Potassium Level 3.0 Chloride Level 118 Carbon Dioxide Level 21.1 Anion Gap 10 Blood Urea Nitrogen 43 Creatinine 0.98 Estimat Glomerular Filtration 73 Rate Random Glucose 100 Calcium Level 8.2 Total Bilirubin 0.5 Aspartate Amino Transf 15 (AST/SGOT) Alanine Aminotransferase 22 (ALT/SGPT) Alkaline Phosphatase 132 Total Protein 4.7 Albumin 2.1 Date/Time Procedure Status Source Growth 11/11/16 20:50 Urine Culture - Preliminary Resulted Urine Catheterized Urine Gram Negative Chuck 11/11/16 19:50 Aerobic Blood Culture - Preliminary Resulted Blood Peripheral NO GROWTH IN 1 DAY 11/11/16 19:50 Anaerobic Blood Culture - Preliminary Resulted Blood Peripheral NO GROWTH IN 1 DAY Result Diagram: 11/12/16 0451 11/12/16 0451 Imaging Last 48 hours Impressions Chest X-Ray 11/11/16 1905 Signed Impressions: Service Date/Time: Friday, November 11, 2016 19:22 - CONCLUSION: No acute disease. Cuong Calderon MD Assessment and Plan Problem List: (1) Adult hypothyroidism Status: Chronic Plan: Continue levothyroxine. TSH level ordered (2) H/O gastroesophageal reflux (GERD) Status: Chronic Plan: No complaints continue Protonix (3) UTI (urinary tract infection) Status: Acute Plan: Waiting for culture results. Rocephin ordered daily. ID consulted for recommendations (4) Hypokalemia Status: Acute Plan: Replacement added to IVF (5) Dehydration Status: Acute Plan: D5 1/2 NS ordered at 84 cc/hr. (6) Hypernatremia Status: Acute Plan: NA 149. Will monitor. IVF ordered. Discussed Condition With Assessment and plan discussed with Dr. Corado Discharge Planning Plan to discharge to SNF Problem Qualifiers (1) UTI (urinary tract infection): Qualified Code: N30.01 - Acute cystitis with hematuria Shivani Mendoza Nov 12, 2016 13:35
[2016-11-12] MEDS: D5-1/2 NS + KCL 10 MEQ INJ 1,000 ML IV SCH (14:19)
[2016-11-12] MEDS: cefTRIAXone INJ 1,000 MG in SODIUM CHLORIDE 0.9% INJ 100 ML IV SCH (14:24)
[2016-11-12] MEDS: metroNIDAZOLE 500 MG INJ 100 ML IV SCH ×2 (16:13→21:07)
[2016-11-12] MEDS: APIXABAN 5 MG TABLET PO SCH (21:07)
--- NOTE | 2016-11-12 22:37 | EKG ---
Date Performed: 11/11/2016 Time Performed: 19:34:51 PTAGE: 86 years EKG: Ventricular pacemaker rhythm with isolated PVC NO PREVIOUS TRACING DOCTOR: Tom Russell Interpretating Date/Time 11/12/2016 22:34:31
[2016-11-13 00:17] VITALS: BP 136/65; PULSE 61; RESP 16; TEMP 96.7; O2SAT 93
[2016-11-13] MEDS: SODIUM CHLOR 0.9% 1000 ML INJ 1,000 ML IV SCH (00:26)
[2016-11-13] MEDS: D5-1/2 NS + KCL 10 MEQ INJ 1,000 ML IV SCH (02:01)
[2016-11-13] MEDS: metroNIDAZOLE 500 MG INJ 100 ML IV SCH ×4 (03:50→20:27)
[2016-11-13 04:23] VITALS: BP 129/74; PULSE 63; RESP 17; TEMP 97; O2SAT 97
[2016-11-13 04:36] LABS: AUTOMATED NEUTROPHIL # 9.8 TH/MM3 (1.8-7.7); BASOPHIL # 0.1 TH/MM3 (0-0.2); BASOPHIL % 1.4 % (0.0-2.0); EOSINOPHIL # 0.2 TH/MM3 (0-0.4); EOSINOPHIL % 2.1 % (0.0-4.0); HEMATOCRIT 31.9 % (39.0-51.0); LYMPH % 0.8 % (9.0-44.0); LYMPHOCYTE # 0.1 TH/MM3 (1.0-4.8); MEAN CELL VOLUME 83.7 FL (80.0-100.0); MEAN CORPUSCULAR HGB CONC 32.2 % (32.0-36.0); MONO % 3.8 % (0.0-8.0); NEUT % 91.9 % (16.0-70.0); PLATELET COUNT 133 TH/MM3 (150-450); RED BLOOD COUNT 3.81 MIL/MM3 (4.50-5.90); RED CELL DISTRIBUTION WIDTH 17.9 % (11.6-17.2); WHITE BLOOD COUNT 10.6 TH/MM3 (4.0-11.0)
[2016-11-13 04:46] LABS: HEMO FLAGS AUTO DIFF
[2016-11-13 05:01] LABS: BICARBONATE 20.5 MEQ/L (21.0-32.0); MAGNESIUM 1.6 MG/DL (1.5-2.5)
[2016-11-13 05:28] LABS: OVALOCYTES 2+ (NORMAL); SCAN/DIFF AUTO DIFF CONFIRMED
[2016-11-13] MEDS: LEVOTHYROXINE SODIUM 75 MCG TAB PO SCH (05:55)
[2016-11-13 08:00] VITALS: BP 137/60; PULSE 60; RESP 17; TEMP 97.2; O2SAT 99
--- NOTE | 2016-11-13 08:18 | MB ---
cc: JENNIFER SPRINGER MD DATE OF CONSULTATION: 11/12/[address] Shivani Mendoza REASON FOR CONSULTATION Bandemia and UTI. HISTORY OF PRESENT ILLNESS This is a 86-year-old white male who was brought to the emergency department from a [facility] facility. The patient was noted to be dehydrated at the [facility] facility and they were having difficulty getting IV access to initiate IV fluids. He was brought to the emergency department for evaluation. The patient has dementia. He was recently admitted to the hospital and treated for MSSA bacteremia. He received IV antibiotic with cefazolin up until 11/09/2016. During the recent hospitalization in October he had a LEE which was negative for vegetation. He was discharged from the hospital on October 31. The patient has elevated white blood cell count with 21% bands. He also has abnormal urinalysis with positive nitrites and innumerable white blood cells. The patient has severe dementia and is not able to communicate meaningfully. He does not verbalize with me and he is playing around with the roll of adhesive tape and the remote control for the television. He does not meaningfully communicate. Urine culture has gram-negative sofía. The patient also has positive C-difficile toxin. Blood cultures from 11/11 is pending. Chest x-ray shows no acute disease. This consultation is requested for antibiotic management. The patient received piperacillin/tazobactam and vancomycin x1 dose each. He was started on ceftriaxone. He is having loose stools currently. PAST MEDICAL HISTORY 1. Hypercholesteremia. 2. Gastroesophageal reflux disease. 3. Hypertension. 4. Hiatal hernia. 5. Non-Hodgkin's lymphoma. 6. Arthritis. 7. Pacemaker placement reportedly 1 year ago. 8. Bilateral hip replacement. 9. Bilateral knee replacement. ALLERGIES NO KNOWN DRUG ALLERGIES. MEDICATIONS 1. Ceftriaxone. 2. Vancomycin p.o. ordered. 3. Eliquis. 4. Synthroid. 5. Protonix. SOCIAL HISTORY No tobacco use. The patient is a former smoker in the past. No alcohol. No illicit drugs. FAMILY HISTORY Noncontributory. REVIEW OF SYSTEMS Review of systems unable to obtain since the patient cannot verbally meaningfully respond because of his dementia. PHYSICAL EXAMINATION GENERAL: This is a slender male who is confused. He is awake but not meaningfully communicating. VITAL SIGNS: Include temperature of 98.7, blood pressure 125/67, heart rate 65, respirations per ventilator. HEENT: The head has multiple excoriated areas of the forehead. These are dried and non-weeping and non-draining. Extraocular movements appear grossly intact. No icterus. Oropharynx dry mucosa without lesions. NECK: No swelling or adenopathy. Neck is supple. LUNGS: Clear breath sounds which are decreased throughout. HEART: Regular, S1-S2. CHEST: Pacemaker in place of the left chest near the left lateral clavicle and it has no erythema or swelling or tenderness. ABDOMEN: Bowel sounds present, soft, no tenderness appreciated. RECTAL: Not performed. EXTREMITIES: No clubbing or cyanosis or edema. SKIN: No rash. NEURO: Unable to fully assess. PSYCHE: Unable to fully assess. LABORATORY DATA WBC 13.0, platelet count 131, 81% neutrophils, 15% bands, hemoglobin 10.5, creatinine 0.98, BUN 43, sodium 149. IMPRESSION 1. UTI due to gram-negative bacteria. 2. C-difficile colitis. 3. Leukocytosis. RECOMMENDATIONS 1. Continue to attempt to give the patient oral vancomycin. 2. Add intravenous Flagyl for C-difficile. 3. Continue ceftriaxone. 4. Monitor urine culture. 5. Monitor white blood cell count. 6. Monitor blood cultures. Thank you for this consultation. I will monitor the patient's progress with you and will make further recommendations on followup if indicated. Jennifer Springer MD FD/OLY /3:38 PM /7:57 AM MTDMelvin
--- NOTE | 2016-11-13 08:55 | HHI.PR ---
Subjective Remarks Patient is more awake today. He has needed to be restrained secondary to climbing out of bed. He is still very difficult to communicate with as his voice is very quite and hard to understand. Objective Vital Signs Date Time Temp Pulse Resp B/P Pulse Ox O2 Delivery O2 Flow Rate FiO2 11/13/16 08:00 97.2 60 17 137/60 99 11/13/16 04:23 97.0 63 17 129/74 97 11/13/16 00:17 96.7 61 16 136/65 93 11/12/16 20:24 97.4 64 16 161/62 92 11/12/16 20:00 62 11/12/16 16:00 97.8 62 19 134/60 95 11/12/16 12:59 63 18 105/52 98 Room Air 11/12/16 12:15 69 18 125/67 99 Room Air 11/12/16 09:00 75 18 124/68 98 Room Air I/O 11/12/16 11/12/16 11/12/16 11/13/16 11/13/16 11/13/16 07:00 15:00 23:00 07:00 15:00 23:00 Intake Total 672 ml 700 ml Output Total 300 ml Balance 672 ml 400 ml Intake IV Total 672 ml 700 ml Output Urine Total 300 ml # Voids 1 # Bowel Movements 1 4 Result Diagram: 11/13/16 0346 11/13/16 0346 Imaging Last 72 hours Impressions Chest X-Ray 11/11/16 1905 Signed Impressions: Service Date/Time: Friday, November 11, 2016 19:22 - CONCLUSION: No acute disease. Cuong Calderon MD Other Results GENERAL: This is a thin male in no apparent distress. SKIN: Cool and dry. Skin lesions noted on face. Sutures present from fall. HEAD: Atraumatic. Normocephalic. EYES: Pupils equal round and reactive. NECK: Trachea midline. No JVD. CARDIOVASCULAR: Regular rate and rhythm without murmurs, gallops, or rubs. RESPIRATORY: Clear to auscultation. Breath sounds equal bilaterally. No wheezes , rales, or rhonchi. GASTROINTESTINAL: Abdomen soft, non-tender, nondistended. MUSCULOSKELETAL: Extremities without cyanosis or edema.s. Negative Homans sign bilaterally. NEUROLOGICAL: Lethargic. Speech is quiet and difficult to understand. Medications and IVs Current Medications Medications (Trade) Dose Ordered Sig/Marcie Route Start Time Stop Time Status Last Admin (NS Flush) 2 ml UNSCH PRN FLUSH 11/11/16 21:45 (NS Flush) 2 ml BID FLUSH 11/12/16 09:00 Naloxone HCl 0.4 mg 0.4 mg UNSCH PRN IV 11/11/16 21:45 (NS 1000 ml Inj) 1,000 ml @ 84 mls/hr [id number] IV 11/12/16 07:00 11/12/16 07:08 Vancomycin HCl 125 mg 125 mg QID PO 11/12/16 09:00 Potassium Chloride/Dextrose/ Sod Cl 1,000 ml @ 84 mls/hr [id number] IV 11/12/16 14:00 11/13/16 02:01 (Rocephin Inj/NS Inj) 100 ml @ 200 mls/hr Q24H IV 11/12/16 14:00 11/17/16 13:59 11/12/16 14:24 (Eliquis) 5 mg BID PO 11/12/16 21:00 11/12/16 21:07 (Synthroid) 75 mcg DAILY@06 PO 11/13/16 06:00 Pantoprazole Sodium 20 mg 20 mg DAILY PO 11/13/16 09:00 (Flagyl 500 Mg Inj) 100 ml @ 100 mls/hr Q6H IV 11/12/16 16:00 11/13/16 03:50 Assessment and Plan Problem List: (1) Adult hypothyroidism Status: Chronic Plan: Continue levothyroxine. TSH level ordered and WNL (2) H/O gastroesophageal reflux (GERD) Status: Chronic Plan: No complaints continue Protonix (3) UTI (urinary tract infection) Status: Acute Plan: Waiting for culture results. Rocephin ordered daily. ID consulted and following (4) Hypokalemia Status: Acute Plan: On replacement (5) Dehydration Status: Acute Plan: IVF changed to D5W at 100 cc/hr secondary to hypernatremia. Nephrology consulted (6) Hypernatremia Status: Acute Plan: NA increased to 152. IVF ordered changed and nephrology consulted. (7) Altered mental status Status: Acute Plan: Neurology consulted (8) Electrolyte abnormality Status: Acute Plan: Patient with hypernatremia, hypokalemia, and low phosphorus. Nephrology consulted (9) C. difficile colitis Status: Acute Plan: On oral vancomycin. Also put on IV flagyl since patient was not awake enough to tolerate oral. ID following. Code Status: Shock Discussed Condition With assessment and plan discussed with Dr. Corado. Discharge Planning Plan to discharge to SNF Problem Qualifiers (1) UTI (urinary tract infection): Qualified Code: N30.01 - Acute cystitis with hematuria Shivani Mendoza Nov 13, 2016 08:55
[2016-11-13] MEDS: SODIUM CHLORIDE 0.9% FLUSH 5 ML FLUSH FLUSH SCH ×2 (09:00→20:38)
[2016-11-13] MEDS: PANTOPRAZOLE SOD 20 MG DELAYED RELEASE TAB PO SCH (09:03)
[2016-11-13] MEDS: VANCOMYCIN 500 MG VIAL (FOR ORAL USE ONLY) PO SCH ×4 (09:03→20:27)
[2016-11-13] MEDS: APIXABAN 5 MG TABLET PO SCH ×2 (09:04→20:27)
[2016-11-13] MEDS ORDERED: POTASSIUM PHOSPHATE INJ 15 MMOL in SODIUM CHLORIDE 0.9% INJ 150 ML IV ONE (10:30)
[2016-11-13] MEDS ORDERED: MAGNESIUM SULFATE 1 GM PREMIX 100 ML IV ONE (10:30)
[2016-11-13] MEDS: DEXTROSE 5% IN WATE 1000ML INJ 1,000 ML IV SCH ×2 (11:22→20:30)
[2016-11-13] MEDS: POTASSIUM CHLOR 10 MEQ PREMIX 100 ML IV SCH ×3 (11:34→14:14)
[2016-11-13 12:00] VITALS: BP 122/58; PULSE 71; RESP 16; TEMP 97.3; O2SAT 98
[2016-11-13] MEDS: cefTRIAXone INJ 1,000 MG in SODIUM CHLORIDE 0.9% INJ 100 ML IV SCH (13:00)
--- NOTE | 2016-11-13 14:28 | HHI.IDPN ---
Note Infectious Disease Note Patient is awake and restless. More verbal. Afebrile. Multiple loose stools. 4 so far today. This is a 86-year-old white male who was brought to the emergency department from a group home facility. The patient was noted to be dehydrated at the group home facility and they were having difficulty getting IV access to initiate IV fluids. He was brought to the emergency department for evaluation. The patient has dementia. He was recently admitted to the hospital and treated for MSSA bacteremia. He received IV antibiotic with cefazolin up until 11/09/2016. PAST MEDICAL HISTORY 1. Hypercholesteremia. 2. Gastroesophageal reflux disease. 3. Hypertension. 4. Hiatal hernia. 5. Non-Hodgkin's lymphoma. 6. Arthritis. 7. Pacemaker placement reportedly 1 year ago. 8. Bilateral hip replacement. 9. Bilateral knee replacement. ALLERGIES NO KNOWN DRUG ALLERGIES. Current Medications Medications (Trade) Dose Ordered Sig/Marcie Route PRN Reason Start Time Stop Time Status Last Admin Dose Admin IV Flush (NS Flush) 2 ml UNSCH PRN FLUSH FLUSH AFTER USING IV ACCESS 11/11/16 21:45 IV Flush (NS Flush) 2 ml BID FLUSH 11/12/16 09:00 Naloxone HCl (Narcan Inj) 0.4 mg UNSCH PRN IV SEE LABEL COMMENTS 11/11/16 21:45 Vancomycin HCl 125 mg 125 mg QID PO 11/12/16 09:00 11/13/16 11:19 Ceftriaxone Sodium/Sodium Chloride (Rocephin Inj/NS Inj) 100 ml @ 200 mls/hr Q24H IV 11/12/16 14:00 11/17/16 13:59 11/13/16 13:00 Apixaban (Eliquis) 5 mg BID PO 11/12/16 21:00 11/13/16 09:04 Levothyroxine Sodium (Synthroid) 75 mcg DAILY@06 PO 11/13/16 06:00 Pantoprazole Sodium 20 mg 20 mg DAILY PO 11/13/16 09:00 11/13/16 09:03 Metronidazole 100 ml @ 100 mls/hr Q6H IV 11/12/16 16:00 11/13/16 14:14 Dextrose 1,000 ml @ 100 mls/hr Q10H IV 11/13/16 10:30 11/13/16 11:22 Potassium Phosphate/Sodium Chloride (Potassium Phosphate Inj/NS Inj) 155 ml @ 38.75 mls/ hr ONCE ONCE IV 11/13/16 10:30 11/13/16 14:29 SOCIAL HISTORY No tobacco use. The patient is a former smoker in the past. No alcohol. No illicit drugs. FAMILY HISTORY Noncontributory. REVIEW OF SYSTEMS Review of systems unable to obtain since the patient cannot verbally meaningfully respond because of his dementia. PHYSICAL EXAMINATION GENERAL: This is a slender male who is confused. HEENT: The head has multiple excoriated areas of the forehead. These are dried and non-weeping and non-draining. Extraocular movements appear grossly intact. No icterus. Oropharynx dry mucosa without lesions. NECK: No swelling or adenopathy. Neck is supple. LUNGS: Clear breath sounds which are decreased throughout. HEART: Regular, S1-S2. CHEST: Pacemaker in place of the left chest near the left lateral clavicle and it has no erythema or swelling or tenderness. ABDOMEN: Bowel sounds present, soft, no tenderness appreciated. EXTREMITIES: No clubbing or cyanosis or edema. SKIN: No rash. NEURO: Unable to fully assess. PSYCHE: Unable to fully assess. IMPRESSION 1. UTI due to Klebsiella. 2. C-difficile colitis. 3. Leukocytosis. WBC improved. RECOMMENDATIONS 1. Continue oral vancomycin. 2. Continue Flagyl for C-difficile. 3. Continue ceftriaxone for UTI. 4. Add lactinex. Jair Springer MD Nov 13, 2016 14:27
[2016-11-13 16:00] VITALS: BP 135/60; PULSE 61; RESP 17; TEMP 97.2; O2SAT 94
[2016-11-13] MEDS: LACTOBACILLUS ACIDOPHILUS TAB PO SCH (17:04)
--- NOTE | 2016-11-13 19:17 | PD.CONS ---
HPI Service Nephrology Consult Requested By Dr. Corado Reason for Consult Hypernatremia Primary Care Physician Unknown History of Present Illness 86-year-old male with history of very artery disease, pacemaker, admitted with altered mental status, agitation informed to have a urinary tract infection with Klebsiella pneumoniae, patient has been treated with ceftriaxone, it was noted to his sodium is high and today was 152 his IV fluids were changed from D5 half normal saline to D5W at 100 cc an hour patient is unable to provide any history. Review of Systems ROS Limitations: Clinical Condition Past Family Social History Allergies: Coded Allergies: No Known Allergies (Verified , 10/21/16) Past Medical History History of non-Hodgkin's lymphoma Artery disease Pacemaker Hypothyroidism Arthritis Past Surgical History Pacemaker inserted Bilateral hip replacement Bilateral knee replacement Reported Medications Reported Meds & Active Scripts Active Reported D3 (Cholecalciferol) 1,000 Unit Cap Risperdal (Risperidone) 1 Mg Tab 1 Mg PO Q12HR Alprazolam 0.25 Mg Tab 0.25 Mg PO Q8H PRN Citalopram (Citalopram Hydrobromide) 10 Mg Tab 10 Mg PO DAILY Zocor (Simvastatin) 80 Mg Tab 80 Mg PO DAILY Eliquis (Apixaban) 5 Mg Tab 5 Mg PO BID Metoprolol Succinate ER 24 HR (Metoprolol Succinate) 25 Mg Tab 25 Mg PO DAILY [place]-3 Fish Oil/Vitamin (Fish Oil-Cholecalciferol) 1,000-1,000 Mg Cap 1 Cap PO DAILY Ferrous Sulfate 325 Mg Tab 325 Mg PO DAILY Levothyroxine (Levothyroxine Sodium) 75 Mcg Tab 75 Mcg PO DAILY Protonix (Pantoprazole Sodium) 20 Mg Tab 20 Mg PO DAILY Amlodipine (Amlodipine Besylate) 2.5 Mg Tab 2.5 Mg PO DAILY Active Ordered Medications Current Medications Medications (Trade) Dose Ordered Sig/Marcie Route Start Time Stop Time Status Last Admin (NS Flush) 2 ml UNSCH PRN FLUSH 11/11/16 21:45 (NS Flush) 2 ml BID FLUSH 11/12/16 09:00 (Narcan Inj) 0.4 mg UNSCH PRN IV 11/11/16 21:45 Vancomycin HCl 125 mg 125 mg QID PO 11/12/16 09:00 11/13/16 17:05 (Rocephin Inj/NS Inj) 100 ml @ 200 mls/hr Q24H IV 11/12/16 14:00 11/17/16 13:59 11/13/16 13:00 (Eliquis) 5 mg BID PO 11/12/16 21:00 11/13/16 09:04 (Synthroid) 75 mcg DAILY@06 PO 11/13/16 06:00 Pantoprazole Sodium 20 mg 20 mg DAILY PO 11/13/16 09:00 11/13/16 09:03 Metronidazole 100 ml @ 100 mls/hr Q6H IV 11/12/16 16:00 11/13/16 14:14 (D5W 1000 ml Inj) 1,000 ml @ 100 mls/hr Q10H IV 11/13/16 10:30 11/13/16 11:22 (Lactinex) 1 tab TID PO 11/13/16 18:00 11/13/16 17:04 Family History Noncontributory Social History Resident of intermediate Physical Exam Vital Signs Vital Signs Date Time Temp Pulse Resp B/P Pulse Ox O2 Delivery O2 Flow Rate FiO2 11/13/16 16:00 97.2 61 17 135/60 94 11/13/16 12:00 97.3 71 16 122/58 98 11/13/16 08:00 97.2 60 17 137/60 99 11/13/16 04:23 97.0 63 17 129/74 97 11/13/16 00:17 96.7 61 16 136/65 93 11/12/16 20:24 97.4 64 16 161/62 92 11/12/16 20:00 62 Physical Exam GENERAL: Well-nourished, well-developed patient. SKIN: Warm and dry. HEAD: Normocephalic. There are scrape leone on his forehead EYES: No scleral icterus. No injection or drainage. NECK: Supple, trachea midline. No JVD or lymphadenopathy. CARDIOVASCULAR: Irregular RESPIRATORY: Breath sounds equal bilaterally. No accessory muscle use. GASTROINTESTINAL: Abdomen soft, non-tender, nondistended. EXTREMITIES: No cyanosis, or edema. NEUROLOGICAL: Confused and agitated Laboratory Laboratory Tests Test 11/13/16 03:46 White Blood Count 10.6 Red Blood Count 3.81 Hemoglobin 10.3 Hematocrit 31.9 Mean Corpuscular Volume 83.7 Mean Corpuscular Hemoglobin 27.0 Mean Corpuscular Hemoglobin 32.2 Concent Red Cell Distribution Width 17.9 Platelet Count 133 Mean Platelet Volume 8.1 Neutrophils (%) (Auto) 91.9 Lymphocytes (%) (Auto) 0.8 Monocytes (%) (Auto) 3.8 Eosinophils (%) (Auto) 2.1 Basophils (%) (Auto) 1.4 Neutrophils # (Auto) 9.8 Lymphocytes # (Auto) 0.1 Monocytes # (Auto) 0.4 Eosinophils # (Auto) 0.2 Basophils # (Auto) 0.1 CBC Comment AUTO DIFF Differential Comment AUTO DIFF CONFIRMED Ovalocytes 2+ Sodium Level 152 Potassium Level 3.0 Chloride Level 122 Carbon Dioxide Level 20.5 Anion Gap 10 Blood Urea Nitrogen 35 Creatinine 1.07 Estimat Glomerular Filtration 66 Rate Random Glucose 126 Calcium Level 8.3 Phosphorus Level 1.9 Magnesium Level 1.6 Thyroid Stimulating Hormone 2.470 3rd Gen Date/Time Procedure Status Source Growth 11/11/16 20:50 Urine Culture - Final Complete Urine Catheterized Urine Klebsiella Pneumoniae 11/11/16 19:50 Aerobic Blood Culture - Preliminary Resulted Blood Peripheral NO GROWTH IN 2 DAYS 11/11/16 19:50 Anaerobic Blood Culture - Preliminary Resulted Blood Peripheral NO GROWTH IN 2 DAYS Result Diagram: 11/13/16 0346 11/13/16 0346 Imaging Last Impressions Chest X-Ray 11/11/16 1905 Signed Impressions: Service Date/Time: Friday, November 11, 2016 19:22 - CONCLUSION: No acute disease. Cuong Calderon MD Assessment and Plan Problem List: (1) Hypernatremia Plan: This is likely due to poor oral intake, he is switched to D5W and continue to monitor BMP He has free water body deficit which is being replaced with D5W at 100 cc an hour. (2) Altered mental status Plan: Patient is agitated due to infection/UTI (3) UTI (urinary tract infection) Plan: On ceftriaxone Problem Qualifiers (1) UTI (urinary tract infection): Qualified Code: N30.01 - Acute cystitis with hematuria Deyanira Avery MD Nov 13, 2016 19:17
[2016-11-13 20:00] VITALS: BP 137/70; PULSE 75; PULSE 86; RESP 18; TEMP 96.6; O2SAT 96
[2016-11-13 20:33] LABS: ANION GAP 8 MEQ/L (5-15); BICARBONATE 19.7 MEQ/L (21.0-32.0); BLOOD UREA NITROGEN 30 MG/DL (7-18); CHLORIDE 120 MEQ/L (98-107); GLOMERULAR FILTRATION RATE 70 ML/MIN (>89); POTASSIUM 3.6 MEQ/L (3.5-5.1); SODIUM (NA) 148 MEQ/L (136-145)
[2016-11-14] VITALS: BP 119/70; PULSE 75; RESP 18; TEMP 96.8; O2SAT 97
[2016-11-14 04:00] VITALS: BP 126/73; PULSE 80; RESP 16; TEMP 96.6; O2SAT 97
[2016-11-14 04:59] LABS: MEAN CELL VOLUME 81.8 FL (80.0-100.0); PLATELET COUNT 116 TH/MM3 (150-450); RED BLOOD COUNT 3.66 MIL/MM3 (4.50-5.90); RED CELL DISTRIBUTION WIDTH 17.9 % (11.6-17.2); REVIEW FLAG FINAL
[2016-11-14 05:20] LABS: BICARBONATE 22.3 MEQ/L (21.0-32.0); MAGNESIUM 1.6 MG/DL (1.5-2.5)
[2016-11-14 05:30] LABS: POTASSIUM 2.9 MEQ/L (3.5-5.1)
[2016-11-14] MEDS: POTASSIUM CHLOR 20 MEQ PREMIX 100 ML IV SCH ×2 (06:22→08:30)
[2016-11-14] MEDS: LEVOTHYROXINE SODIUM 75 MCG TAB PO SCH (06:22)
[2016-11-14] MEDS: metroNIDAZOLE 500 MG INJ 100 ML IV SCH ×4 (06:22→20:04)
[2016-11-14] MEDS: DEXTROSE 5% IN WATE 1000ML INJ 1,000 ML IV SCH ×2 (06:30→16:39)
--- NOTE | 2016-11-14 06:57 | HHI.PR ---
Subjective Remarks Patient is more awake today. He is still needing to be restrained secondary to pulling at lines. He is still very difficult to communicate with as his voice is very quite and hard to understand. Objective Vital Signs Date Time Temp Pulse Resp B/P Pulse Ox O2 Delivery O2 Flow Rate FiO2 11/14/16 04:00 96.6 80 16 126/73 97 11/14/16 00:00 96.8 75 18 119/70 97 11/13/16 20:00 96.6 86 18 137/70 96 11/13/16 20:00 75 11/13/16 16:00 97.2 61 17 135/60 94 11/13/16 12:00 97.3 71 16 122/58 98 11/13/16 08:00 97.2 60 17 137/60 99 I/O 11/13/16 11/13/16 11/13/16 11/14/16 11/14/16 11/14/16 07:00 15:00 23:00 07:00 15:00 23:00 Intake Total 700 ml 1388 ml 60 ml 60 ml Output Total 300 ml Balance 400 ml 1388 ml 60 ml 60 ml Intake Oral 480 ml 60 ml 60 ml IV Total 700 ml 908 ml Output Urine Total 300 ml # Voids 4 3 2 # Bowel Movements 4 4 1 1 Result Diagram: 11/14/16 0359 11/14/16 0359 Other Results GENERAL: This is a thin male in no apparent distress. SKIN: Cool and dry. Skin lesions noted on face. Sutures present from fall. HEAD: Atraumatic. Normocephalic. EYES: Pupils equal round and reactive. NECK: Trachea midline. No JVD. CARDIOVASCULAR: Regular rate and rhythm without murmurs, gallops, or rubs. RESPIRATORY: Clear to auscultation. Breath sounds equal bilaterally. No wheezes , rales, or rhonchi. GASTROINTESTINAL: Abdomen soft, non-tender, nondistended. MUSCULOSKELETAL: Extremities without cyanosis or edema.s. Negative Homans sign bilaterally. NEUROLOGICAL: Lethargic. Speech is quiet and difficult to understand. Medications and IVs Current Medications Medications (Trade) Dose Ordered Sig/Marcie Route Start Time Stop Time Status Last Admin (NS Flush) 2 ml UNSCH PRN FLUSH 11/11/16 21:45 (NS Flush) 2 ml BID FLUSH 11/12/16 09:00 (Narcan Inj) 0.4 mg UNSCH PRN IV 11/11/16 21:45 Vancomycin HCl 125 mg 125 mg QID PO 11/12/16 09:00 11/14/16 08:32 (Rocephin Inj/NS Inj) 100 ml @ 200 mls/hr Q24H IV 11/12/16 14:00 11/17/16 13:59 11/13/16 13:00 (Eliquis) 5 mg BID PO 11/12/16 21:00 11/14/16 08:32 (Synthroid) 75 mcg DAILY@06 PO 11/13/16 06:00 11/14/16 06:22 Pantoprazole Sodium 20 mg 20 mg DAILY PO 11/13/16 09:00 11/14/16 08:32 Metronidazole 100 ml @ 100 mls/hr Q6H IV 11/12/16 16:00 11/14/16 08:30 (D5W 1000 ml Inj) 1,000 ml @ 100 mls/hr Q10H IV 11/13/16 10:30 11/13/16 20:30 Lactobacillus Acidophilus 1 tab 1 tab TID PO 11/13/16 18:00 11/14/16 08:32 (KCl 20 Meq Premix Inj) 100 ml @ 50 mls/hr ONCE ONCE IV 11/14/16 12:00 11/14/16 13:59 (Namenda) 5 mg DAILY PO 11/14/16 09:00 11/14/16 08:32 Assessment and Plan Problem List: (1) UTI (urinary tract infection) Status: Acute Plan: . Rocephin ordered daily. ID consulted and following (2) C. difficile colitis Status: Acute Plan: On oral vancomycin. Also put on IV flagyl since patient was not awake enough to tolerate oral. ID following. (3) Dehydration Status: Acute Plan: IVF changed to D5W at 100 cc/hr secondary to hypernatremia. Nephrology consulted and following (4) Hypokalemia Status: Acute Plan: K 2.9 this AM. Replacement increased. (5) Hypernatremia Status: Acute Plan: NA decreased to 148. IVF D5W at 100ml/ hr nephrology consulted and following. (6) Altered mental status Status: Acute Plan: Neurology consulted and following. Patient more alert this AM but not following commands. (7) Electrolyte abnormality Status: Acute Plan: Patient with hypernatremia, hypokalemia, and low phosphorus. Nephrology consulted and following. Replacement ordered. (8) Adult hypothyroidism Status: Chronic Plan: Continue levothyroxine. TSH level ordered and WNL (9) H/O gastroesophageal reflux (GERD) Status: Chronic Plan: No complaints continue Protonix Discussed Condition With Assessment and plan discussed with Dr. Corado Discharge Planning Plan to discharge to SNF Problem Qualifiers (1) UTI (urinary tract infection): Qualified Code: N30.01 - Acute cystitis with hematuria Shivani Mendoza Nov 14, 2016 06:57
--- NOTE | 2016-11-14 07:22 | HHI.PR ---
Subjective Remarks slept well last noc acc to nurse Objective Vital Signs Date Time Temp Pulse Resp B/P Pulse Ox O2 Delivery O2 Flow Rate FiO2 11/14/16 04:00 96.6 80 16 126/73 97 11/14/16 00:00 96.8 75 18 119/70 97 11/13/16 20:00 96.6 86 18 137/70 96 11/13/16 20:00 75 11/13/16 16:00 97.2 61 17 135/60 94 11/13/16 12:00 97.3 71 16 122/58 98 11/13/16 08:00 97.2 60 17 137/60 99 I/O 11/13/16 11/13/16 11/13/16 11/14/16 11/14/16 11/14/16 07:00 15:00 23:00 07:00 15:00 23:00 Intake Total 700 ml 1388 ml 60 ml 1760 ml Output Total 300 ml Balance 400 ml 1388 ml 60 ml 1760 ml Intake Oral 480 ml 60 ml 60 ml IV Total 700 ml 908 ml 1700 ml Output Urine Total 300 ml # Voids 4 3 2 # Bowel Movements 4 4 1 1 Result Diagram: 11/14/16 0359 11/14/16 0359 Objective Remarks asleep now Assessment and Plan Assessment and Plan imp start namenda b12 t[address] neg will fu thursday Luis Armando Perez MD Nov 14, 2016 07:22
[2016-11-14 08:00] VITALS: BP 133/76; PULSE 80; RESP 16; TEMP 97.4; O2SAT 100
[2016-11-14] MEDS: PANTOPRAZOLE SOD 20 MG DELAYED RELEASE TAB PO SCH (08:32)
[2016-11-14] MEDS: APIXABAN 5 MG TABLET PO SCH ×2 (08:32→20:04)
[2016-11-14] MEDS: SODIUM CHLORIDE 0.9% FLUSH 5 ML FLUSH FLUSH SCH ×2 (08:32→20:04)
[2016-11-14] MEDS: VANCOMYCIN 500 MG VIAL (FOR ORAL USE ONLY) PO SCH ×4 (08:32→20:04)
[2016-11-14] MEDS: MEMANTINE HCL 5 MG TAB PO SCH (08:32)
[2016-11-14] MEDS: LACTOBACILLUS ACIDOPHILUS TAB PO SCH ×3 (08:32→17:37)
--- NOTE | 2016-11-14 09:18 | MB ---
cc: ASHLEY PINK DATE OF CONSULTATION: 11/13/2016 REASON FOR CONSULTATION: 86-year-old man I am asked to see for change in mental status. HISTORY OF PRESENT ILLNESS: He is in the hospital with C. Difficile, dehydration and has never been seen by neurology here before. He has a history of coronary artery disease, pacemaker, abdominal aortic aneurysm status post repair, dementia, lymphoma 14 years ago, reflux, hypothyroidism, left foot drop. He was deteriorating. I believe he lives in a shelter. Could not get any IV fluids in him, and thus was brought into the hospital. He has a history of non-Hodgkin's lymphoma. He uses Eliquis. He was lethargic yesterday, soft spoken, hard to understand. SOCIAL HISTORY: Occasionally has a drink, half a pack per day for 25 years, not a drug user. ALLERGIES: NO KNOWN DRUG ALLERGIES. MEDICATIONS AT THE ALF: 1. Amlodipine. 2. Protonix. 3. Thyroid medicine. 4. [place]-3 fish oil. 5. Metoprolol. 6. Eliquis 5 twice a day. 7. Zocor. 8. Citalopram 10 milligrams a day. 9. Norvasc. 10. Risperdal 1 milligram q. 12. 11. Xanax 0.25 PRN. REVIEW OF SYSTEMS: Unable to obtain from the patient -- too demented. PHYSICAL EXAMINATION: VITAL SIGNS: On exam here, afebrile, 71, 16, 122/58. GENERAL: He has a pacemaker in. Slightly cachectic. Has some scabs over the right side of his forehead and right frontal area of his head, possibly zoster. NECK: There were no carotid bruits. HEART: Regular rhythm. I do not detect a murmur. NEUROLOGICAL EXAMINATION: He is awake and alert. He says he lives in [place]. He does not know where he is. He says that he lives at his parent's house with his parents. Speech is fluent. His is not aphasic. He follows commands well. Visual brown appear full. He can count fingers well. Face is symmetric. He moves all four of his extremities well. Toes are downgoing bilaterally. Speech is strong. IMAGING STUDIES: Chest x-ray was negative. He had a CT scan of his brain read as normal except for a small left temporal lobe cyst. On review of the CT scan, he does have the left temporal lobe cyst and some diffuse atrophy, some central and cortical atrophy, the ventricles are slightly prominent. He had a CT scan of his brain in 2013 and I would say overall the CT shows a little bit more atrophy now than it did then. The ventricles were slightly prominent at that time, a little bit larger now than they were then, but they were somewhat prominent at that time, but there is more cortical atrophy now than there was back in 2013. LABORATORY STUDIES: White count is 10, hematocrit 32, platelet count 133,000. C. difficile positive on this admission. Urinalysis shows a large amount of leukocyte esterase, 155 red cells, too numerous to count white cells. Coags normal. Sodium is 152, potassium 3, creatinine is normal. Troponin has been negative. Albumin 2.1, TSH normal. CPK normal. IMPRESSION He certainly has dementia, likely worsened but now improved somewhat overall since he got hydration. RECOMMENDATIONS/PLAN: 1. We will just check a B12 level on him. 2. I could start him some Namenda for the memory. 3. We will see if he is sleeping at night and watch his sleep chart. I will be following him with you in the hospital. MD LUIZ Prakash/ANNIE /4:30 PM /9:15 AM
[2016-11-14 12:00] VITALS: BP 135/77; PULSE 77; RESP 16; TEMP 96.3; O2SAT 100
[2016-11-14] MEDS ORDERED: POTASSIUM CHLOR 20 MEQ PREMIX 100 ML IV ONE (12:00)
[2016-11-14] MEDS: MAGNESIUM SULFATE 1 GM PREMIX 100 ML IV SCH ×2 (12:43→14:49)
[2016-11-14] MEDS ORDERED: POTASSIUM PHOSPHATE INJ 15 MMOL in SODIUM CHLORIDE 0.9% INJ 150 ML IV ONE (13:00)
--- NOTE | 2016-11-14 13:17 | HHI.NPPN ---
Subjective History of Present Illness 86 year old with AMS UTI Objective Data Data 11/13/16 11/14/16 19:00 07:00 Intake Total 1388 ml 1820 ml Balance 1388 ml 1820 ml Intake Oral 480 ml 120 ml IV Total 908 ml 1700 ml # Voids 4 5 # Bowel Movements 4 2 Vital Signs Date Time Temp Pulse Resp B/P Pulse Ox O2 Delivery O2 Flow Rate FiO2 11/14/16 12:00 96.3 77 16 135/77 100 11/14/16 08:00 97.4 80 16 133/76 100 11/14/16 04:00 96.6 80 16 126/73 97 11/14/16 00:00 96.8 75 18 119/70 97 11/13/16 20:00 96.6 86 18 137/70 96 11/13/16 20:00 75 11/13/16 16:00 97.2 61 17 135/60 94 -: 11/14/16 0359 11/14/16 1220 Physical Exam General Appearance: Pale Neck Neck Exam: Neck Supple Pulmonary Resp Exam: Clear Bilaterally, Breath Sounds Equal Cardiology CV Exam: Regular, Normal Sinus Rhythm Gastrointestinal/Abdomen GI Exam: Soft, Non-Tender, Bowel Sounds Present Extremeties Extremities Exam: No Edema Assessment/Plan Problem List: (1) Hypernatremia Plan: his Na is 148 K was replaced as well as PO4/Mg multiple electrolytes deficits due to poor oral intake (2) Altered mental status Plan: Patient is agitated due to infection/UTI (3) UTI (urinary tract infection) Plan: On ceftriaxone Problem Qualifiers (1) UTI (urinary tract infection): Qualified Code: N30.01 - Acute cystitis with hematuria Deyanira Avery MD Nov 14, 2016 13:17
[2016-11-14] MEDS: cefTRIAXone INJ 1,000 MG in SODIUM CHLORIDE 0.9% INJ 100 ML IV SCH (14:46)
[2016-11-14 16:00] VITALS: BP 133/62; PULSE 81; RESP 15; TEMP 96.4; O2SAT 92
--- NOTE | 2016-11-14 16:32 | HHI.IDPN ---
Note Infectious Disease Note Patient is more awake. Wants to eat. More verbal. Afebrile. Continues to have loose stools. This is a 86-year-old white male who was brought to the emergency department from a retirement facility. The patient was noted to be dehydrated at the retirement facility and they were having difficulty getting IV access to initiate IV fluids. He was brought to the emergency department for evaluation. The patient has dementia. He was recently admitted to the hospital and treated for MSSA bacteremia. He received IV antibiotic with cefazolin up until 11/09/2016. PAST MEDICAL HISTORY 1. Hypercholesteremia. 2. Gastroesophageal reflux disease. 3. Hypertension. 4. Hiatal hernia. 5. Non-Hodgkin's lymphoma. 6. Arthritis. 7. Pacemaker placement reportedly 1 year ago. 8. Bilateral hip replacement. 9. Bilateral knee replacement. ALLERGIES NO KNOWN DRUG ALLERGIES. Current Medications Medications (Trade) Dose Ordered Sig/Marcie Route PRN Reason Start Time Stop Time Status Last Admin Dose Admin IV Flush (NS Flush) 2 ml UNSCH PRN FLUSH FLUSH AFTER USING IV ACCESS 11/11/16 21:45 IV Flush (NS Flush) 2 ml BID FLUSH 11/12/16 09:00 Naloxone HCl (Narcan Inj) 0.4 mg UNSCH PRN IV SEE LABEL COMMENTS 11/11/16 21:45 Vancomycin HCl 125 mg 125 mg QID PO 11/12/16 09:00 11/14/16 12:42 Ceftriaxone Sodium/Sodium Chloride (Rocephin Inj/NS Inj) 100 ml @ 200 mls/hr Q24H IV 11/12/16 14:00 11/17/16 13:59 11/14/16 14:46 Apixaban (Eliquis) 5 mg BID PO 11/12/16 21:00 11/14/16 08:32 Levothyroxine Sodium (Synthroid) 75 mcg DAILY@06 PO 11/13/16 06:00 11/14/16 06:22 Pantoprazole Sodium 20 mg 20 mg DAILY PO 11/13/16 09:00 11/14/16 08:32 Metronidazole 100 ml @ 100 mls/hr Q6H IV 11/12/16 16:00 11/14/16 16:28 Dextrose (D5W 1000 ml Inj) 1,000 ml @ 100 mls/hr Q10H IV 11/13/16 10:30 11/13/16 20:30 Lactobacillus Acidophilus (Lactinex) 1 tab TID PO 11/13/16 18:00 11/14/16 12:42 Memantine 5 mg 5 mg DAILY PO 11/14/16 09:00 11/14/16 08:32 Potassium Phosphate/Sodium Chloride (Potassium Phosphate Inj/NS Inj) 155 ml @ 38.75 mls/ hr ONCE ONCE IV 11/14/16 13:00 11/14/16 16:59 11/14/16 14:47 SOCIAL HISTORY No tobacco use. The patient is a former smoker in the past. No alcohol. No illicit drugs. FAMILY HISTORY Noncontributory. REVIEW OF SYSTEMS Review of systems unable to obtain since the patient cannot verbally meaningfully respond because of his dementia. OBJECTIVE: 11/13/16 11/13/16 11/14/16 15:00 23:00 07:00 Intake Total 1388 ml 60 ml 1760 ml Balance 1388 ml 60 ml 1760 ml Intake Oral 480 ml 60 ml 60 ml IV Total 908 ml 1700 ml # Voids 4 3 2 # Bowel Movements 4 1 1 Vital Signs Date Time Temp Pulse Resp B/P Pulse Ox O2 Delivery O2 Flow Rate FiO2 11/14/16 12:00 96.3 77 16 135/77 100 11/14/16 08:00 97.4 80 16 133/76 100 11/14/16 04:00 96.6 80 16 126/73 97 11/14/16 00:00 96.8 75 18 119/70 97 11/13/16 20:00 96.6 86 18 137/70 96 11/13/16 20:00 75 Laboratory Tests Test 11/13/16 11/14/16 03:46 03:59 White Blood Count 10.6 TH/MM3 8.0 TH/MM3 Red Blood Count 3.81 MIL/MM3 3.66 MIL/MM3 Hemoglobin 10.3 GM/DL 9.9 GM/DL Hematocrit 31.9 % 30.0 % Mean Corpuscular Volume 83.7 FL 81.8 FL Mean Corpuscular Hemoglobin 27.0 PG 27.0 PG Mean Corpuscular Hemoglobin 32.2 % 33.0 % Concent Red Cell Distribution Width 17.9 % 17.9 % Platelet Count 133 TH/MM3 116 TH/MM3 Mean Platelet Volume 8.1 FL 7.8 FL Neutrophils (%) (Auto) 91.9 % Lymphocytes (%) (Auto) 0.8 % Monocytes (%) (Auto) 3.8 % Eosinophils (%) (Auto) 2.1 % Basophils (%) (Auto) 1.4 % Neutrophils # (Auto) 9.8 TH/MM3 Lymphocytes # (Auto) 0.1 TH/MM3 Monocytes # (Auto) 0.4 TH/MM3 Eosinophils # (Auto) 0.2 TH/MM3 Basophils # (Auto) 0.1 TH/MM3 CBC Comment AUTO DIFF Differential Comment AUTO DIFF CONFIRMED Ovalocytes 2+ Laboratory Tests Test 11/13/16 11/13/16 11/14/16 11/14/16 03:46 19:44 03:59 12:20 Sodium Level 152 MEQ/L 148 MEQ/L 148 MEQ/L Potassium Level 3.0 MEQ/L 3.6 MEQ/L 2.9 MEQ/L 3.6 MEQ/L Chloride Level 122 MEQ/L 120 MEQ/L 117 MEQ/L Carbon Dioxide Level 20.5 MEQ/L 19.7 MEQ/L 22.3 MEQ/L Anion Gap 10 MEQ/L 8 MEQ/L 9 MEQ/L Blood Urea Nitrogen 35 MG/DL 30 MG/DL 25 MG/DL Creatinine 1.07 MG/DL 1.01 MG/DL 0.84 MG/DL Estimat Glomerular Filtration 66 ML/MIN 70 ML/MIN 87 ML/MIN Rate Random Glucose 126 MG/DL 131 MG/DL 136 MG/DL Calcium Level 8.3 MG/DL 8.0 MG/DL 7.7 MG/DL Phosphorus Level 1.9 MG/DL 1.7 MG/DL Magnesium Level 1.6 MG/DL 1.6 MG/DL Thyroid Stimulating Hormone 2.470 uIU/ML 3rd Gen Vitamin B12 Level GREATER THAN 2000 PG/ML Microbiology Date/Time Procedure Status Source Growth 11/11/16 19:45 Aerobic Blood Culture - Preliminary Resulted Blood Peripheral NO GROWTH IN 3 DAYS 11/11/16 19:45 Anaerobic Blood Culture - Preliminary Resulted Blood Peripheral NO GROWTH IN 3 DAYS 11/11/16 19:50 Aerobic Blood Culture - Preliminary Resulted Blood Peripheral NO GROWTH IN 3 DAYS 11/11/16 19:50 Anaerobic Blood Culture - Preliminary Resulted Blood Peripheral NO GROWTH IN 3 DAYS 11/11/16 20:50 Urine Culture - Final Complete Urine Catheterized Urine Klebsiella Pneumoniae PHYSICAL EXAMINATION GENERAL: This is a slender male who is confused. HEENT: The head has multiple excoriated areas of the forehead. These are dried and non-weeping and non-draining. Extraocular movements appear grossly intact. No icterus. Oropharynx dry mucosa without lesions. NECK: No swelling or adenopathy. Neck is supple. LUNGS: Clear breath sounds which are decreased throughout. HEART: Regular, S1-S2. CHEST: Pacemaker in place of the left chest near the left lateral clavicle and it has no erythema or swelling or tenderness. ABDOMEN: Bowel sounds present, soft, no tenderness appreciated. EXTREMITIES: No clubbing or cyanosis or edema. SKIN: No rash. NEURO: Unable to fully assess. PSYCHE: Unable to fully assess. IMPRESSION 1. UTI due to Klebsiella. 2. C-difficile colitis. 3. Leukocytosis. WBC improved. RECOMMENDATIONS 1. Continue oral vancomycin. 2. Continue Flagyl for C-difficile. 3. Stop Ceftriaxone. 4. Add lactinex. 5. Repeat the urine culture Jair Springer MD Nov 14, 2016 16:32
[2016-11-14 20:00] VITALS: BP 125/71; PULSE 65; PULSE 77; RESP 18; TEMP 97.7; O2SAT 96
[2016-11-15] VITALS: BP 130/68; PULSE 70; RESP 16; TEMP 98.1; O2SAT 95
[2016-11-15 00:26] LABS: BASOPHIL % 0.2 % (0.0-2.0); EOSINOPHIL # 0.5 TH/MM3 (0-0.4); EOSINOPHIL % 3.9 % (0.0-4.0); HEMATOCRIT 32.7 % (39.0-51.0); LYMPH % 3.7 % (9.0-44.0); LYMPHOCYTE # 0.4 TH/MM3 (1.0-4.8); MEAN CELL VOLUME 81.5 FL (80.0-100.0); MEAN CORPUSCULAR HEMOGLOBIN 26.1 PG (27.0-34.0); MEAN CORPUSCULAR HGB CONC 32.1 % (32.0-36.0); MONO % 6.3 % (0.0-8.0); NEUT % 85.9 % (16.0-70.0); PLATELET COUNT 120 TH/MM3 (150-450); RED BLOOD COUNT 4.01 MIL/MM3 (4.50-5.90); RED CELL DISTRIBUTION WIDTH 18.1 % (11.6-17.2); WHITE BLOOD COUNT 11.6 TH/MM3 (4.0-11.0)
[2016-11-15 00:43] LABS: HEMO FLAGS AUTO DIFF
[2016-11-15 00:54] LABS: POTASSIUM 3.8 MEQ/L (3.5-5.1)
[2016-11-15 02:16] LABS: CRENATED RBCS 1+ (NORMAL); KERATOCYTES 1+ (NORMAL); OVALOCYTES 1+ (NORMAL); TEARDROP RBCS 1+ (NORMAL)
[2016-11-15 02:17] LABS: BURR CELLS 1+ (NORMAL); SCAN/DIFF AUTO DIFF CONFIRMED
[2016-11-15] MEDS: LEVOTHYROXINE SODIUM 75 MCG TAB PO SCH (05:17)
[2016-11-15] MEDS: metroNIDAZOLE 500 MG INJ 100 ML IV SCH ×4 (05:17→19:28)
[2016-11-15] MEDS: DEXTROSE 5% IN WATE 1000ML INJ 1,000 ML IV SCH ×3 (05:18→19:28)
[2016-11-15 06:32] LABS: BICARBONATE 21.8 MEQ/L (21.0-32.0); MAGNESIUM 1.7 MG/DL (1.5-2.5); POTASSIUM 3.9 MEQ/L (3.5-5.1)
[2016-11-15 06:42] LABS: HEMATOCRIT 31.9 % (39.0-51.0); MEAN CORPUSCULAR HEMOGLOBIN 26.4 PG (27.0-34.0); MEAN CORPUSCULAR HGB CONC 32.6 % (32.0-36.0); PLATELET COUNT 114 TH/MM3 (150-450); RED BLOOD COUNT 3.94 MIL/MM3 (4.50-5.90); RED CELL DISTRIBUTION WIDTH 17.5 % (11.6-17.2); REVIEW FLAG FINAL; WHITE BLOOD COUNT 12.8 TH/MM3 (4.0-11.0)
[2016-11-15 08:00] VITALS: BP 132/76; PULSE 82; RESP 16; TEMP 96.1; O2SAT 100
[2016-11-15] MEDS: SODIUM CHLORIDE 0.9% FLUSH 5 ML FLUSH FLUSH SCH ×2 (08:38→19:29)
[2016-11-15] MEDS: LACTOBACILLUS ACIDOPHILUS TAB PO SCH ×3 (08:38→16:52)
[2016-11-15] MEDS: APIXABAN 5 MG TABLET PO SCH ×2 (08:38→19:29)
[2016-11-15] MEDS: MEMANTINE HCL 5 MG TAB PO SCH (08:38)
[2016-11-15] MEDS: VANCOMYCIN 500 MG VIAL (FOR ORAL USE ONLY) PO SCH ×4 (08:38→19:29)
[2016-11-15] MEDS: PANTOPRAZOLE SOD 20 MG DELAYED RELEASE TAB PO SCH (08:38)
[2016-11-15 12:00] VITALS: BP 129/81; PULSE 62; RESP 18; TEMP 96; O2SAT 99
--- NOTE | 2016-11-15 15:50 | HHI.NPPN ---
Subjective History of Present Illness 86 year old with AMS UTI Objective Data Data 11/14/16 11/15/16 19:00 07:00 Intake Total 2048 ml 1348 ml Balance 2048 ml 1348 ml Intake Oral 720 ml 240 ml IV Total 1328 ml 1108 ml # Voids 5 4 # Bowel Movements 3 2 Vital Signs Date Time Temp Pulse Resp B/P Pulse Ox O2 Delivery O2 Flow Rate FiO2 11/15/16 12:00 96.0 62 18 129/81 99 11/15/16 08:00 96.1 82 16 132/76 100 11/15/16 00:00 98.1 70 16 130/68 95 11/14/16 20:00 77 11/14/16 20:00 97.7 65 18 125/71 96 11/14/16 16:00 96.4 81 15 133/62 92 -: 11/15/16 0520 11/15/16 0520 Microbiology 11/15/16 Urine Culture, Received Pending Physical Exam General Appearance: Pale Neck Neck Exam: Neck Supple Pulmonary Resp Exam: Clear Bilaterally, Breath Sounds Equal Cardiology CV Exam: Regular, Normal Sinus Rhythm Gastrointestinal/Abdomen GI Exam: Soft, Non-Tender, Bowel Sounds Present Extremeties Extremities Exam: No Edema Assessment/Plan Problem List: (1) Hypernatremia Plan: his Na is 144 multiple electrolytes abnormalities corrected Nephrology to sign off (2) Altered mental status Plan: Patient is agitated due to infection/UTI (3) UTI (urinary tract infection) Plan: Off ceftriaxone Problem Qualifiers (1) UTI (urinary tract infection): Qualified Code: N30.01 - Acute cystitis with hematuria Deyanira Avery MD Nov 15, 2016 15:50
[2016-11-15 16:00] VITALS: BP 148/74; PULSE 62; RESP 18; TEMP 97.2; O2SAT 96
--- NOTE | 2016-11-15 18:19 | HHI.PR ---
Subjective Remarks much improved coherent today Objective Vital Signs Date Time Temp Pulse Resp B/P Pulse Ox O2 Delivery O2 Flow Rate FiO2 11/15/16 16:00 97.2 62 18 148/74 96 11/15/16 12:00 96.0 62 18 129/81 99 11/15/16 08:00 96.1 82 16 132/76 100 11/15/16 00:00 98.1 70 16 130/68 95 11/14/16 20:00 77 11/14/16 20:00 97.7 65 18 125/71 96 I/O 11/14/16 11/14/16 11/14/16 11/15/16 11/15/16 11/15/16 07:00 15:00 23:00 07:00 15:00 23:00 Intake Total 1760 ml 2048 ml 787 ml 561 ml 1341 ml Balance 1760 ml 2048 ml 787 ml 561 ml 1341 ml Intake Oral 60 ml 720 ml 120 ml 120 ml 480 ml IV Total 1700 ml 1328 ml 667 ml 441 ml 861 ml # Voids 2 5 1 3 3 # Bowel Movements 1 3 0 2 1 Result Diagram: 11/15/16 0511/15/16 0520 Objective Remarks GENERAL: SKIN: Warm and dry. HEAD: Atraumatic. Normocephalic. EYES: Pupils equal and round. No scleral icterus. No injection or drainage. ENT: No nasal bleeding or discharge. Mucous membranes pink and moist. NECK: Trachea midline. No JVD. CARDIOVASCULAR: Regular rate and rhythm. RESPIRATORY: No accessory muscle use. Clear to auscultation. Breath sounds equal bilaterally. GASTROINTESTINAL: Abdomen soft, non-tender, nondistended. Hepatic and splenic margins not palpable. MUSCULOSKELETAL: Extremities without clubbing, cyanosis, or edema. No obvious deformities. NEUROLOGICAL: Awake and alert. No obvious cranial nerve deficits. Motor grossly within normal limits. Five out of 5 muscle strength in the arms and legs. Normal speech. PSYCHIATRIC: Appropriate mood and affect; insight and judgment sandoval much more alertl. Current Medications Medications (Trade) Dose Ordered Sig/Marcie Route PRN Reason Start Time Stop Time Status Last Admin Dose Admin IV Flush (NS Flush) 2 ml UNSCH PRN FLUSH FLUSH AFTER USING IV ACCESS 11/11/16 21:45 IV Flush (NS Flush) 2 ml BID FLUSH 11/12/16 09:00 Naloxone HCl (Narcan Inj) 0.4 mg UNSCH PRN IV SEE LABEL COMMENTS 11/11/16 21:45 Vancomycin HCl (VANCOMYCIN for oral use only) 125 mg QID PO 11/12/16 09:00 11/15/16 16:52 Apixaban (Eliquis) 5 mg BID PO 11/12/16 21:00 11/15/16 08:38 Levothyroxine Sodium (Synthroid) 75 mcg DAILY@06 PO 11/13/16 06:00 11/15/16 05:17 Pantoprazole Sodium 20 mg 20 mg DAILY PO 11/13/16 09:00 11/15/16 08:38 Metronidazole 100 ml @ 100 mls/hr Q6H IV 11/12/16 16:00 11/15/16 16:51 Dextrose (D5W 1000 ml Inj) 1,000 ml @ 100 mls/hr Q10H IV 11/13/16 10:30 11/15/16 12:26 Lactobacillus Acidophilus (Lactinex) 1 tab TID PO 11/13/16 18:00 11/15/16 16:52 Memantine (Namenda) 5 mg DAILY PO 11/14/16 09:00 11/15/16 08:38 Medications and IVs Current Medications Medications (Trade) Dose Ordered Sig/Marcie Route PRN Reason Start Time Stop Time Status Last Admin Dose Admin IV Flush (NS Flush) 2 ml UNSCH PRN FLUSH FLUSH AFTER USING IV ACCESS 11/11/16 21:45 IV Flush (NS Flush) 2 ml BID FLUSH 11/12/16 09:00 Naloxone HCl (Narcan Inj) 0.4 mg UNSCH PRN IV SEE LABEL COMMENTS 11/11/16 21:45 Vancomycin HCl (VANCOMYCIN for oral use only) 125 mg QID PO 11/12/16 09:00 11/15/16 16:52 Apixaban (Eliquis) 5 mg BID PO 11/12/16 21:00 11/15/16 08:38 Levothyroxine Sodium (Synthroid) 75 mcg DAILY@06 PO 11/13/16 06:00 11/15/16 05:17 Pantoprazole Sodium 20 mg 20 mg DAILY PO 11/13/16 09:00 11/15/16 08:38 Metronidazole 100 ml @ 100 mls/hr Q6H IV 11/12/16 16:00 11/15/16 16:51 Dextrose (D5W 1000 ml Inj) 1,000 ml @ 100 mls/hr Q10H IV 11/13/16 10:30 11/15/16 12:26 Lactobacillus Acidophilus (Lactinex) 1 tab TID PO 11/13/16 18:00 11/15/16 16:52 Memantine (Namenda) 5 mg DAILY PO 11/14/16 09:00 11/15/16 08:38 Assessment and Plan Problem List: (1) C. difficile colitis Status: Acute (2) Dehydration Status: Acute (3) Sepsis Status: Acute Assessment and Plan dehydration improved Cdiff stabilizing Problem Qualifiers (1) Sepsis: Qualified Code: A41.9 - Sepsis, due to unspecified organism Petar Corado DO Nov 15, 2016 18:19
[2016-11-15 19:28] VITALS: PULSE 66
[2016-11-15 20:00] VITALS: BP 136/79; PULSE 69; RESP 18; TEMP 98.4; O2SAT 96
[2016-11-16] VITALS (7 sets, daily range): BP systolic 120–139; BP diastolic 65–89; PULSE 68–79; RESP 15–20; TEMP 95.7–98.6; O2SAT 94–100
[2016-11-16] MEDS: ALPRAZolam 0.25 MG TAB PO PRN ×2 (01:19→18:45)
[2016-11-16] MEDS: risperiDONE 0.5 MG TAB PO SCH ×3 (01:19→19:03)
[2016-11-16] MEDS: LEVOTHYROXINE SODIUM 75 MCG TAB PO SCH (05:44)
[2016-11-16] MEDS: DEXTROSE 5% IN WATE 1000ML INJ 1,000 ML IV SCH ×2 (05:44→17:19)
[2016-11-16] MEDS: metroNIDAZOLE 500 MG INJ 100 ML IV SCH ×4 (05:44→19:09)
[2016-11-16] MEDS: MEMANTINE HCL 5 MG TAB PO SCH (08:03)
[2016-11-16] MEDS: LACTOBACILLUS ACIDOPHILUS TAB PO SCH ×3 (08:03→17:12)
[2016-11-16] MEDS: APIXABAN 5 MG TABLET PO SCH ×2 (08:04→19:03)
[2016-11-16] MEDS: SODIUM CHLORIDE 0.9% FLUSH 5 ML FLUSH FLUSH SCH ×2 (08:04→19:04)
[2016-11-16] MEDS: PANTOPRAZOLE SOD 20 MG DELAYED RELEASE TAB PO SCH (08:04)
[2016-11-16] MEDS: VANCOMYCIN 500 MG VIAL (FOR ORAL USE ONLY) PO SCH ×4 (08:04→19:03)
--- NOTE | 2016-11-16 14:21 | HHI.PR ---
Subjective Remarks confused last pm risperdal and ativan renewed Objective Vital Signs Date Time Temp Pulse Resp B/P Pulse Ox O2 Delivery O2 Flow Rate FiO2 11/16/16 12:00 96.8 68 15 137/66 100 11/16/16 08:00 95.7 68 15 137/66 100 11/16/16 00:00 98.6 70 19 139/67 96 11/15/16 20:00 98.4 69 18 136/79 96 11/15/16 19:28 66 11/15/16 16:00 97.2 62 18 148/74 96 I/O 11/15/16 11/15/16 11/15/16 11/16/16 11/16/16 11/16/16 07:00 15:00 23:00 07:00 15:00 23:00 Intake Total 561 ml 1341 ml 495 ml 1174 ml Output Total 200 ml Balance 561 ml 1341 ml 495 ml 974 ml Intake Oral 120 ml 480 ml 120 ml 120 ml IV Total 441 ml 861 ml 375 ml 1054 ml Output Urine Total 200 ml # Voids 3 3 1 3 # Bowel Movements 2 1 0 2 Result Diagram: 11/15/1620 11/15/16 0520 Objective Remarks GENERAL: SKIN: Warm and dry. HEAD: Atraumatic. Normocephalic. EYES: Pupils equal and round. No scleral icterus. No injection or drainage. ENT: No nasal bleeding or discharge. Mucous membranes pink and moist. NECK: Trachea midline. No JVD. CARDIOVASCULAR: Regular rate and rhythm. RESPIRATORY: No accessory muscle use. Clear to auscultation. Breath sounds equal bilaterally. GASTROINTESTINAL: Abdomen soft, non-tender, nondistended. Hepatic and splenic margins not palpable. MUSCULOSKELETAL: Extremities without clubbing, cyanosis, or edema. No obvious deformities. NEUROLOGICAL: Awake and alert. No obvious cranial nerve deficits. Motor grossly within normal limits. Five out of 5 muscle strength in the arms and legs. Normal speech. PSYCHIATRIC: calm with risperdal Current Medications Medications (Trade) Dose Ordered Sig/Marcie Route PRN Reason Start Time Stop Time Status Last Admin Dose Admin IV Flush (NS Flush) 2 ml UNSCH PRN FLUSH FLUSH AFTER USING IV ACCESS 11/11/16 21:45 IV Flush (NS Flush) 2 ml BID FLUSH 11/12/16 09:00 Naloxone HCl (Narcan Inj) 0.4 mg UNSCH PRN IV SEE LABEL COMMENTS 11/11/16 21:45 Vancomycin HCl (VANCOMYCIN for oral use only) 125 mg QID PO 11/12/16 09:00 11/15/16 16:52 Apixaban (Eliquis) 5 mg BID PO 11/12/16 21:00 11/15/16 08:38 Levothyroxine Sodium (Synthroid) 75 mcg DAILY@06 PO 11/13/16 06:00 11/15/16 05:17 Pantoprazole Sodium 20 mg 20 mg DAILY PO 11/13/16 09:00 11/15/16 08:38 Metronidazole 100 ml @ 100 mls/hr Q6H IV 11/12/16 16:00 11/15/16 16:51 Dextrose (D5W 1000 ml Inj) 1,000 ml @ 100 mls/hr Q10H IV 11/13/16 10:30 11/15/16 12:26 Lactobacillus Acidophilus (Lactinex) 1 tab TID PO 11/13/16 18:00 11/15/16 16:52 Memantine (Namenda) 5 mg DAILY PO 11/14/16 09:00 11/15/16 08:38 Medications and IVs Current Medications Medications (Trade) Dose Ordered Sig/Marcie Route PRN Reason Start Time Stop Time Status Last Admin Dose Admin IV Flush (NS Flush) 2 ml UNSCH PRN FLUSH FLUSH AFTER USING IV ACCESS 11/11/16 21:45 IV Flush (NS Flush) 2 ml BID FLUSH 11/12/16 09:00 11/15/16 19:29 Naloxone HCl (Narcan Inj) 0.4 mg UNSCH PRN IV SEE LABEL COMMENTS 11/11/16 21:45 Vancomycin HCl (VANCOMYCIN for oral use only) 125 mg QID PO 11/12/16 09:00 11/16/16 12:18 Apixaban (Eliquis) 5 mg BID PO 11/12/16 21:00 11/16/16 08:04 Levothyroxine Sodium (Synthroid) 75 mcg DAILY@06 PO 11/13/16 06:00 11/16/16 05:44 Pantoprazole Sodium 20 mg 20 mg DAILY PO 11/13/16 09:00 11/16/16 08:04 Metronidazole 100 ml @ 100 mls/hr Q6H IV 11/12/16 16:00 11/16/16 12:18 Dextrose (D5W 1000 ml Inj) 1,000 ml @ 100 mls/hr Q10H IV 11/13/16 10:30 11/16/16 05:44 Lactobacillus Acidophilus (Lactinex) 1 tab TID PO 11/13/16 18:00 11/16/16 12:18 Memantine (Namenda) 5 mg DAILY PO 11/14/16 09:00 11/16/16 08:03 Risperidone (risperDAL) 0.5 mg BID PO 11/16/16 01:00 11/16/16 09:55 Alprazolam (Xanax) 0.25 mg Q8H PRN PO ANXIETY/AGITATION 11/16/16 01:15 11/16/16 01:19 Assessment and Plan Problem List: (1) C. difficile colitis Status: Acute (2) Dehydration Status: Acute (3) Sepsis Status: Acute Assessment and Plan dehydration improved Cdiff stabilizing dementia will titrate risperdal Problem Qualifiers (1) Sepsis: Qualified Code: A41.9 - Sepsis, due to unspecified organism Petar Corado DO Nov 16, 2016 14:21
[2016-11-16] MEDS ORDERED: risperiDONE 0.5 MG TAB PO ONE (22:15)
[2016-11-16] MEDS ORDERED: ALPRAZolam 0.5 MG TAB PO PRN (22:15)
--- NOTE | 2016-11-16 22:43 | RADRPT ---
EXAM DATE/TIME: 11/16/2016 22:09 [place] COMPARISON: CHEST SINGLE AP, November 11, 2016, 19:22. INDICATIONS : Evaluate for aspiration. MEDICAL HISTORY : Hypertension. Gastroesophageal reflux disease. Myocardial infarction. SURGICAL HISTORY : Pacemaker. ENCOUNTER: Initial ACUITY: 1 day PAIN SCORE: Non-responsive. LOCATION: Bilateral chest FINDINGS: Pacemaker device is noted with control pack over the left chest. Hazy perihilar and basilar densities may reflect mild parenchymal edema and/or layering effusion. Cardiac contours are grossly stable acc ounting for differences in projection. CONCLUSION: Mild developing perihilar and basilar parenchymal opacities Jordan Elizabeth MD on November 16, 2016 at 22:40 Board Certified Radiologist. This report was verified electronically.
[2016-11-17] VITALS (7 sets, daily range): BP systolic 107–143; BP diastolic 60–78; PULSE 60–80; RESP 16–20; TEMP 96.1–98.6; O2SAT 94–98
[2016-11-17] MEDS: metroNIDAZOLE 500 MG INJ 100 ML IV SCH ×2 (06:17→10:00)
[2016-11-17] MEDS: DEXTROSE 5% IN WATE 1000ML INJ 1,000 ML IV SCH (06:17)
[2016-11-17] MEDS: LEVOTHYROXINE SODIUM 75 MCG TAB PO SCH (06:17)
[2016-11-17] MEDS ORDERED: risperiDONE 0.25 MG TAB PO PRN (07:30)
--- NOTE | 2016-11-17 07:31 | HHI.PR ---
Subjective Remarks did no slept well last [facility] acc to nurse up most of night Objective Vital Signs Date Time Temp Pulse Resp B/P Pulse Ox O2 Delivery O2 Flow Rate FiO2 11/17/16 00:00 98.6 80 18 136/78 96 11/16/16 20:00 98.6 79 20 137/65 94 11/16/16 18:25 75 11/16/16 16:00 97.7 74 15 120/89 96 11/16/16 12:00 96.8 68 15 137/66 100 11/16/16 08:00 95.7 68 15 137/66 100 I/O 11/16/16 11/16/16 11/16/16 11/17/16 11/17/16 11/17/16 07:00 15:00 23:00 07:00 15:00 23:00 Intake Total 1174 ml 240 ml 470 ml 120 ml Output Total 200 ml 900 ml Balance 974 ml -660 ml 470 ml 120 ml Intake Oral 120 ml 240 ml 120 ml 120 ml IV Total 1054 ml 350 ml Output Urine Total 200 ml 900 ml # Voids 3 1 2 # Bowel Movements 2 3 0 0 Result Diagram: 11/15/16 0520 11/15/16 0520 Objective Remarks awake alert not following commands good eye contact Assessment and Plan Assessment and Plan imp start namenda b12 tsh ok ct neg sleep regiment ad oob all day so sleeps at [facility] Luis Armando Perez MD Nov 17, 2016 07:31
[2016-11-17] MEDS: LACTOBACILLUS ACIDOPHILUS TAB PO SCH ×3 (07:46→18:05)
[2016-11-17] MEDS: MEMANTINE HCL 5 MG TAB PO SCH (07:46)
[2016-11-17] MEDS: APIXABAN 5 MG TABLET PO SCH ×2 (07:46→20:39)
[2016-11-17] MEDS: PANTOPRAZOLE SOD 20 MG DELAYED RELEASE TAB PO SCH (07:46)
[2016-11-17] MEDS: VANCOMYCIN 500 MG VIAL (FOR ORAL USE ONLY) PO SCH ×4 (07:47→20:39)
[2016-11-17] MEDS: SODIUM CHLORIDE 0.9% FLUSH 5 ML FLUSH FLUSH SCH ×2 (07:47→20:44)
[2016-11-17] MEDS ORDERED: risperiDONE 1 MG TAB PO SCH (09:00)
--- NOTE | 2016-11-17 12:36 | HHI.IDPN ---
Note Infectious Disease Note Patient is sleeping soundly. Was awake most of early am. at bedside. Notes he was functional and active before previous hospitalization. Reported to become restless when awake. Few pasty stools. Eat a little breakfast. Afebrile. This is a 86-year-old white male who was brought [facility]. The patient was noted to be dehydrated at the [facility] facility and they were having difficulty getting IV access to initiate IV fluids. He was brought to the emergency department for evaluation. The patient has dementia. He was recently admitted to the hospital and treated for MSSA bacteremia. He received IV antibiotic with cefazolin up until 11/09/2016. PAST MEDICAL HISTORY 1. Hypercholesteremia. 2. Gastroesophageal reflux disease. 3. Hypertension. 4. Hiatal hernia. 5. Non-Hodgkin's lymphoma. 6. Arthritis. 7. Pacemaker placement reportedly 1 year ago. 8. Bilateral hip replacement. 9. Bilateral knee replacement. ALLERGIES NO KNOWN DRUG ALLERGIES. Current Medications Medications (Trade) Dose Ordered Sig/Marcie Route PRN Reason Start Time Stop Time Status Last Admin Dose Admin IV Flush (NS Flush) 2 ml UNSCH PRN FLUSH FLUSH AFTER USING IV ACCESS 11/11/16 21:45 IV Flush (NS Flush) 2 ml BID FLUSH 11/12/16 09:00 11/17/16 07:47 Naloxone HCl (Narcan Inj) 0.4 mg UNSCH PRN IV SEE LABEL COMMENTS 11/11/16 21:45 Vancomycin HCl (VANCOMYCIN for oral use only) 125 mg QID PO 11/12/16 09:00 11/17/16 07:47 Apixaban (Eliquis) 5 mg BID PO 11/12/16 21:00 11/17/16 07:46 Levothyroxine Sodium (Synthroid) 75 mcg DAILY@06 PO 11/13/16 06:00 11/17/16 06:17 Pantoprazole Sodium 20 mg 20 mg DAILY PO 11/13/16 09:00 11/17/16 07:46 Metronidazole 100 ml @ 100 mls/hr Q6H IV 11/12/16 16:00 11/17/16 10:00 Dextrose (D5W 1000 ml Inj) 1,000 ml @ 100 mls/hr Q10H IV 11/13/16 10:30 11/17/16 06:17 Lactobacillus Acidophilus (Lactinex) 1 tab TID PO 11/13/16 18:00 11/17/16 07:46 Memantine (Namenda) 5 mg DAILY PO 11/14/16 09:00 11/17/16 07:46 Risperidone (risperDAL) 0.25 mg DAILY PRN PO INSOMNIA 11/17/16 07:30 Temazepam (Restoril) 15 mg DAILY@22 PRN PO insomnia 11/17/16 22:00 SOCIAL HISTORY No tobacco use. The patient is a former smoker in the past. No alcohol. No illicit drugs. Down in [place] from [facility] for winter. FAMILY HISTORY Noncontributory. OBJECTIVE: Vital Signs Date Time Temp Pulse Resp B/P Pulse Ox O2 Delivery O2 Flow Rate FiO2 11/17/16 12:00 96.1 74 17 112/69 96 11/17/16 08:00 96.7 60 18 138/60 98 11/17/16 00:00 98.6 80 18 136/78 96 11/16/16 20:00 98.6 79 20 137/65 94 11/16/16 18:25 75 11/16/16 16:00 97.7 74 15 120/89 96 11/16/16 11/16/16 11/17/16 15:00 23:00 07:00 Intake Total 240 ml 470 ml 120 ml Output Total 900 ml Balance -660 ml 470 ml 120 ml Intake Oral 240 ml 120 ml 120 ml IV Total 350 ml Output Urine Total 900 ml # Voids 1 2 # Bowel Movements 3 0 0 Microbiology Date/Time Procedure Status Source Growth 11/15/16 03:30 Urine Culture - Final Complete Urine Catheterized Urine NO GROWTH IN 48 HOURS. PHYSICAL EXAMINATION GENERAL: No acute distress. HEENT: Multiple excoriated areas of the forehead. These are dried and non-weeping and non-draining. Extraocular movements appear grossly intact. No icterus. Oropharynx dry mucosa without lesions. NECK: No swelling or adenopathy. Neck is supple. LUNGS: Clear breath sounds which are decreased throughout. HEART: Regular, S1-S2. CHEST: Pacemaker in place of the left chest near the left lateral clavicle and it has no erythema or swelling or tenderness. ABDOMEN: Bowel sounds present, soft, no tenderness appreciated. EXTREMITIES: No clubbing or cyanosis or edema. SKIN: No rash. NEURO: Unable to fully assess. PSYCHE: Unable to fully assess. IMPRESSION 1. UTI due to Klebsiella. Resolved. 2. C-difficile colitis. 3. Leukocytosis. WBC improved. RECOMMENDATIONS 1. Continue oral vancomycin. 2. Stop Flagyl. 3. Continue lactinex. 4. Monitor stools. Continue PO Vancomycin another 9 days. Jair Springer MD Nov 17, 2016 12:36
--- NOTE | 2016-11-17 13:11 | HHI.PR ---
Subjective Remarks Patient is awake today when rounding. He continues to be very difficult to communicate with as his voice is very quite and hard to understand. Reported per nursing that patient had a difficult night and was awake and agitated at times. Objective Vital Signs Date Time Temp Pulse Resp B/P Pulse Ox O2 Delivery O2 Flow Rate FiO2 11/17/16 12:00 96.1 74 17 112/69 96 11/17/16 08:00 96.7 60 18 138/60 98 11/17/16 00:00 98.6 80 18 136/78 96 11/16/16 20:00 98.6 79 20 137/65 94 11/16/16 18:25 75 11/16/16 16:00 97.7 74 15 120/89 96 I/O 11/16/16 11/16/16 11/16/16 11/17/16 11/17/16 11/17/16 07:00 15:00 23:00 07:00 15:00 23:00 Intake Total 1174 ml 240 ml 470 ml 120 ml Output Total 200 ml 900 ml Balance 974 ml -660 ml 470 ml 120 ml Intake Oral 120 ml 240 ml 120 ml 120 ml IV Total 1054 ml 350 ml Output Urine Total 200 ml 900 ml # Voids 3 1 2 # Bowel Movements 2 3 0 0 Result Diagram: 11/15/16 0520 11/15/16 0520 Imaging Last 48 hours Impressions Chest X-Ray 11/16/16 0000 Signed Impressions: Service Date/Time: Wednesday, November 16, 2016 22:09 - CONCLUSION: Mild developing perihilar and basilar parenchymal opacities Jordan Elizabeth MD Other Results GENERAL: This is a thin male in no apparent distress. SKIN: Cool and dry. Skin lesions noted on face. Sutures present from fall. HEAD: Atraumatic. Normocephalic. EYES: Pupils equal round and reactive. NECK: Trachea midline. No JVD. CARDIOVASCULAR: Regular rate and rhythm without murmurs, gallops, or rubs. RESPIRATORY: Clear to auscultation. Breath sounds equal bilaterally. No wheezes , rales, or rhonchi. GASTROINTESTINAL: Abdomen soft, non-tender, nondistended. MUSCULOSKELETAL: Extremities without cyanosis or edema.s. Negative Homans sign bilaterally. NEUROLOGICAL: Lethargic. Speech is quiet and difficult to understand. Medications and IVs Current Medications Medications (Trade) Dose Ordered Sig/Marcie Route Start Time Stop Time Status Last Admin (NS Flush) 2 ml UNSCH PRN FLUSH 11/11/16 21:45 (NS Flush) 2 ml BID FLUSH 11/12/16 09:00 11/17/16 07:47 (Narcan Inj) 0.4 mg UNSCH PRN IV 11/11/16 21:45 (VANCOMYCIN for oral use only) 125 mg QID PO 11/12/16 09:00 11/17/16 07:47 (Eliquis) 5 mg BID PO 11/12/16 21:00 11/17/16 07:46 (Synthroid) 75 mcg DAILY@06 PO 11/13/16 06:00 11/17/16 06:17 Pantoprazole Sodium 20 mg 20 mg DAILY PO 11/13/16 09:00 11/17/16 07:46 (D5W 1000 ml Inj) 1,000 ml @ 100 mls/hr Q10H IV 11/13/16 10:30 11/17/16 06:17 (Lactinex) 1 tab TID PO 11/13/16 18:00 11/17/16 07:46 (Namenda) 5 mg DAILY PO 11/14/16 09:00 11/17/16 07:46 (risperDAL) 0.25 mg DAILY PRN PO 11/17/16 07:30 (Restoril) 15 mg DAILY@22 PRN PO 11/17/16 22:00 Assessment and Plan Problem List: (1) Opacity of lung on imaging study Status: Acute Plan: Opacities noted on chest xray. Labs ordered today to check WBC. Patient has remained afebrile. Discussed with ID and he will re-evaluate tomorrow for need for antibiotics. Patient currently being treated for C Diff. (2) C. difficile colitis Status: Acute Plan: On oral vancomycin. IV flagyl discontinued. ID following. (3) Altered mental status Status: Acute Plan: Neurology consulted and following. Patient more alert this AM but not following commands. Reported per nursing that patient was agitated and awake most of the night. Seen by neurology this am. Risperdal increased and Restoril ordered for insomnia. (4) Hypernatremia Status: Resolved Plan: Resolved on the will recheck labs today. Nephrology following. (5) Dehydration Status: Resolved Plan: Resolved on the . Will recheck labs today. Nephrology consulted and following (6) Hypokalemia Status: Resolved Plan: Resolved on the will recheck labs today. (7) UTI (urinary tract infection) Status: Resolved Plan: Resolved. Antibiotics complete. ID consulted and following (8) Electrolyte abnormality Status: Resolved Plan: Resolved on the labs ordered for today. Nephrology consulted and following. (9) Adult hypothyroidism Status: Chronic Plan: Continue levothyroxine. TSH level ordered and WNL (10) H/O gastroesophageal reflux (GERD) Status: Chronic Plan: No complaints continue Protonix Discussed Condition With Assessment and plan discussed with Dr. Corado Discharge Planning Plan to discharge to SNF Problem Qualifiers (1) UTI (urinary tract infection): Qualified Code: N30.01 - Acute cystitis with hematuria Shivani Mendoza Nov 17, 2016 13:11
[2016-11-17 15:07] LABS: AUTOMATED NEUTROPHIL # 10.2 TH/MM3 (1.8-7.7); BASOPHIL % 0.3 % (0.0-2.0); EOSINOPHIL # 0.3 TH/MM3 (0-0.4); EOSINOPHIL % 2.7 % (0.0-4.0); HEMATOCRIT 29.1 % (39.0-51.0); LYMPH % 3.3 % (9.0-44.0); LYMPHOCYTE # 0.4 TH/MM3 (1.0-4.8); MEAN CELL VOLUME 82.1 FL (80.0-100.0); MEAN CORPUSCULAR HEMOGLOBIN 26.6 PG (27.0-34.0); MEAN CORPUSCULAR HGB CONC 32.4 % (32.0-36.0); MONO % 6.1 % (0.0-8.0); NEUT % 87.6 % (16.0-70.0); PLATELET COUNT 90 TH/MM3 (150-450); RED BLOOD COUNT 3.54 MIL/MM3 (4.50-5.90); RED CELL DISTRIBUTION WIDTH 17.9 % (11.6-17.2); WHITE BLOOD COUNT 11.7 TH/MM3 (4.0-11.0)
[2016-11-17 15:10] LABS: HEMO FLAGS AUTO DIFF
[2016-11-17] MEDS: RESP: ALBUTEROL 2.5 MG/IPRATROPIUM 0.5 MG NEB (SCH) NEB ×2 (15:11→21:11)
[2016-11-17 15:52] LABS: ACANTHOCYTES 1+ (NORMAL); BURR CELLS 2+ (NORMAL)
[2016-11-17 15:53] LABS: KERATOCYTES OCC (NORMAL); PLATELET ESTIMATE SMEAR LOW (NORMAL); PLATELET MORPHOLOGY NORMAL (NORMAL); SCAN/DIFF AUTO DIFF CONFIRMED
[2016-11-17 15:58] LABS: BICARBONATE 23.5 MEQ/L (21.0-32.0); POTASSIUM 3.5 MEQ/L (3.5-5.1)
[2016-11-17] MEDS ORDERED: CEFUROXIME AXETIL 500 MG TAB PO SCH (21:00)
[2016-11-17] MEDS ORDERED: TEMAZEPAM 15 MG CAP PO PRN (22:00)
[2016-11-18] VITALS (8 sets, daily range): BP systolic 104–135; BP diastolic 56–63; PULSE 67–118; RESP 17–20; TEMP 96.4–97.8; O2SAT 94–98
[2016-11-18] MEDS: DEXTROSE 5% IN WATE 1000ML INJ 1,000 ML IV SCH ×3 (00:30→20:30)
[2016-11-18] MEDS: RESP: ALBUTEROL 2.5 MG/IPRATROPIUM 0.5 MG NEB (SCH) NEB ×4 (03:38→21:04)
[2016-11-18 04:12] LABS: HEMATOCRIT 28.3 % (39.0-51.0); MEAN CELL VOLUME 79.9 FL (80.0-100.0); MEAN CORPUSCULAR HEMOGLOBIN 26.4 PG (27.0-34.0); PLATELET COUNT 101 TH/MM3 (150-450); RED BLOOD COUNT 3.54 MIL/MM3 (4.50-5.90); RED CELL DISTRIBUTION WIDTH 17.9 % (11.6-17.2); REVIEW FLAG FINAL; WHITE BLOOD COUNT 11.9 TH/MM3 (4.0-11.0)
[2016-11-18 04:41] LABS: BICARBONATE 24.5 MEQ/L (21.0-32.0); MAGNESIUM 1.4 MG/DL (1.5-2.5); POTASSIUM 3.8 MEQ/L (3.5-5.1)
[2016-11-18] MEDS: LEVOTHYROXINE SODIUM 75 MCG TAB PO SCH (06:17)
[2016-11-18] MEDS: SODIUM CHLORIDE 0.9% FLUSH 5 ML FLUSH FLUSH SCH ×2 (09:00→20:30)
[2016-11-18] MEDS: VANCOMYCIN 500 MG VIAL (FOR ORAL USE ONLY) PO SCH ×5 (09:20→21:00)
[2016-11-18] MEDS: MEMANTINE HCL 5 MG TAB PO SCH (09:21)
[2016-11-18] MEDS: APIXABAN 5 MG TABLET PO SCH ×3 (09:21→21:00)
[2016-11-18] MEDS: PANTOPRAZOLE SOD 20 MG DELAYED RELEASE TAB PO SCH (09:21)
[2016-11-18] MEDS: LACTOBACILLUS ACIDOPHILUS TAB PO SCH ×3 (09:25→17:40)
--- NOTE | 2016-11-18 12:09 | HHI.PR ---
Subjective Remarks Patient is awake and calm. He continues to be very difficult to communicate with as his voice is very quite and hard to understand. Reported per nursing that patient had good night and slept most of night. Objective Vital Signs Date Time Temp Pulse Resp B/P Pulse Ox O2 Delivery O2 Flow Rate FiO2 11/18/16 08:37 98 21 11/18/16 08:00 96.9 83 19 120/63 97 11/18/16 05:25 97 11/18/16 04:02 96.5 79 20 104/56 97 11/17/16 20:39 68 11/17/16 20:18 97.2 68 20 143/78 94 11/17/16 16:00 96.2 62 16 107/68 94 11/17/16 15:11 96 21 I/O 11/17/16 11/17/16 11/17/16 11/18/16 11/18/16 11/18/16 07:00 15:00 23:00 07:00 15:00 23:00 Intake Total 120 ml 360 ml 240 ml 120 ml Balance 120 ml 360 ml 240 ml 120 ml Intake Oral 120 ml 360 ml 240 ml 120 ml IV Total 0 ml # Voids 2 4 2 2 # Bowel Movements 0 2 1 Result Diagram: 11/18/16 0335 11/18/16 033 Other Results GENERAL: This is a thin male in no apparent distress. SKIN: Cool and dry. Skin lesions noted on face. Sutures present from fall. HEAD: Atraumatic. Normocephalic. EYES: Pupils equal round and reactive. NECK: Trachea midline. No JVD. CARDIOVASCULAR: Regular rate and rhythm without murmurs, gallops, or rubs. RESPIRATORY: Clear to auscultation. Breath sounds equal bilaterally. No wheezes , rales, or rhonchi. GASTROINTESTINAL: Abdomen soft, non-tender, nondistended. MUSCULOSKELETAL: Extremities without cyanosis or edema.s. Negative Homans sign bilaterally. NEUROLOGICAL: Speech is quiet and difficult to understand. Medications and IVs Current Medications Medications (Trade) Dose Ordered Sig/Marcie Route Start Time Stop Time Status Last Admin (NS Flush) 2 ml UNSCH PRN FLUSH 11/11/16 21:45 (NS Flush) 2 ml BID FLUSH 11/12/16 09:00 11/17/16 07:47 (Narcan Inj) 0.4 mg UNSCH PRN IV 11/11/16 21:45 (VANCOMYCIN for oral use only) 125 mg QID PO 11/12/16 09:00 11/18/16 09:20 (Eliquis) 5 mg BID PO 11/12/16 21:00 11/18/16 09:21 (Synthroid) 75 mcg DAILY@06 PO 11/13/16 06:00 11/18/16 06:17 Pantoprazole Sodium 20 mg 20 mg DAILY PO 11/13/16 09:00 11/18/16 09:21 (D5W 1000 ml Inj) 1,000 ml @ 100 mls/hr Q10H IV 11/13/16 10:30 11/17/16 06:17 (Lactinex) 1 tab TID PO 11/13/16 18:00 11/18/16 09:25 (Namenda) 5 mg DAILY PO 11/14/16 09:00 11/18/16 09:21 (risperDAL) 0.25 mg DAILY PRN PO 11/17/16 07:30 (Restoril) 15 mg DAILY@22 PRN PO 11/17/16 22:00 Assessment and Plan Problem List: (1) Opacity of lung on imaging study Status: Acute Plan: Opacities noted on chest xray. WBC at 11.9.. Patient has remained afebrile. Discussed with ID and he will re-evaluate tomorrow for need for antibiotics. Patient currently being treated for C Diff. (2) C. difficile colitis Status: Acute Plan: On oral vancomycin. IV flagyl discontinued. ID following. (3) Altered mental status Status: Acute Plan: Neurology consulted and following. Patient more alert this AM but not following commands. On Risperdal and Restoril for sleep. Per nursing patient had a very good night and slept without sleeping pill (4) Hypernatremia Status: Resolved Plan: Resolved on the will recheck labs today. Nephrology following. (5) Dehydration Status: Resolved Plan: Resolved on the . Will recheck labs today. Nephrology consulted and following (6) Hypokalemia Status: Resolved Plan: Resolved on the will recheck labs today. (7) UTI (urinary tract infection) Status: Resolved Plan: Resolved. Antibiotics complete. ID consulted and following (8) Electrolyte abnormality Status: Resolved Plan: Magnesium and phosphorus low. Will order replacement. Nephrology consulted and following. (9) Adult hypothyroidism Status: Chronic Plan: Continue levothyroxine. TSH level ordered and WNL (10) H/O gastroesophageal reflux (GERD) Status: Chronic Plan: No complaints continue Protonix Discussed Condition With Assessment and plan discussed with Dr. Corado Discharge Planning Plan to discharge to SNF Problem Qualifiers (1) UTI (urinary tract infection): Qualified Code: N30.01 - Acute cystitis with hematuria Shivani Mendoza Nov 18, 2016 12:09
[2016-11-18] MEDS ORDERED: POTASSIUM PHOSPHATE INJ 30 MMOL in SODIUM CHLOR 0.9% 250 ML INJ 250 ML IV ONE (14:00)
[2016-11-18] MEDS: MAGNESIUM SULFATE 1 GM PREMIX 100 ML IV SCH ×2 (17:39→17:41)
[2016-11-18] MEDS: HALOPERIDOL LACTATE 5 MG/ML AMP IM PRN (23:31)
[2016-11-19] MEDS: RESP: ALBUTEROL 2.5 MG/IPRATROPIUM 0.5 MG NEB (SCH) NEB ×4 (03:12→21:09)
[2016-11-19] MEDS: HALOPERIDOL LACTATE 5 MG/ML AMP IM PRN (03:22)
[2016-11-19 04:00] VITALS: BP 123/59; PULSE 83; RESP 16; TEMP 97.1; O2SAT 93
[2016-11-19] MEDS: LEVOTHYROXINE SODIUM 75 MCG TAB PO SCH (06:00)
[2016-11-19 06:07] LABS: HEMATOCRIT 25.5 % (39.0-51.0); MEAN CELL VOLUME 80.4 FL (80.0-100.0); MEAN CORPUSCULAR HEMOGLOBIN 27.2 PG (27.0-34.0); MEAN CORPUSCULAR HGB CONC 33.8 % (32.0-36.0); PLATELET COUNT 106 TH/MM3 (150-450); RED BLOOD COUNT 3.17 MIL/MM3 (4.50-5.90); RED CELL DISTRIBUTION WIDTH 18.2 % (11.6-17.2); REVIEW FLAG FINAL; WHITE BLOOD COUNT 7.1 TH/MM3 (4.0-11.0)
[2016-11-19] MEDS: DEXTROSE 5% IN WATE 1000ML INJ 1,000 ML IV SCH ×2 (06:15→15:48)
[2016-11-19 06:32] LABS: BICARBONATE 24.4 MEQ/L (21.0-32.0); MAGNESIUM 1.6 MG/DL (1.5-2.5); POTASSIUM 3.8 MEQ/L (3.5-5.1)
[2016-11-19 08:00] VITALS: BP 132/66; PULSE 79; RESP 16; TEMP 95.9; O2SAT 94
[2016-11-19] MEDS: VANCOMYCIN 500 MG VIAL (FOR ORAL USE ONLY) PO SCH ×4 (09:51→21:12)
[2016-11-19] MEDS: APIXABAN 5 MG TABLET PO SCH ×2 (09:52→21:13)
[2016-11-19] MEDS: LACTOBACILLUS ACIDOPHILUS TAB PO SCH ×3 (09:52→17:55)
[2016-11-19] MEDS: MEMANTINE HCL 5 MG TAB PO SCH (09:52)
[2016-11-19] MEDS: PANTOPRAZOLE SOD 20 MG DELAYED RELEASE TAB PO SCH (09:52)
[2016-11-19] MEDS: SODIUM CHLORIDE 0.9% FLUSH 5 ML FLUSH FLUSH SCH ×2 (09:57→21:14)
[2016-11-19 12:00] VITALS: BP 105/56; PULSE 69; RESP 17; TEMP 96.6; O2SAT 96
--- NOTE | 2016-11-19 12:14 | HHI.PR ---
Subjective Remarks Patient is awake and calm. He continues to be very difficult to communicate with as his voice is very quite and hard to understand. Reported per nursing that patient had was very agitated and needed repeated doses of Haldol Objective Vital Signs Date Time Temp Pulse Resp B/P Pulse Ox O2 Delivery O2 Flow Rate FiO2 11/19/16 08:00 95.9 79 16 132/66 94 11/19/16 04:00 97.1 83 16 123/59 93 11/19/16 00:00 11/18/16 20:00 97.8 118 18 135/63 94 11/18/16 16:00 97.4 76 17 126/58 97 11/18/16 15:19 96 21 11/18/16 12:00 96.4 67 18 111/59 96 I/O 11/18/16 11/18/16 11/18/16 11/19/16 11/19/16 11/19/16 07:00 15:00 23:00 07:00 15:00 23:00 Intake Total 120 ml 720 ml 196 ml 0 ml Balance 120 ml 720 ml 196 ml 0 ml Intake Oral 120 ml 720 ml IV Total 196 ml 0 ml # Voids 2 4 1 # Bowel Movements 0 Result Diagram: 11/19/16 0440 11/19/16 0445 Other Results GENERAL: This is a thin male in no apparent distress. SKIN: Cool and dry. Skin lesions noted on face. Sutures present from fall. HEAD: Atraumatic. Normocephalic. EYES: Pupils equal round and reactive. NECK: Trachea midline. No JVD. CARDIOVASCULAR: Regular rate and rhythm without murmurs, gallops, or rubs. RESPIRATORY: Clear to auscultation. Breath sounds equal bilaterally. No wheezes , rales, or rhonchi. GASTROINTESTINAL: Abdomen soft, non-tender, nondistended. MUSCULOSKELETAL: Extremities without cyanosis or edema.s. Negative Homans sign bilaterally. NEUROLOGICAL: Speech is quiet and difficult to understand. Medications and IVs Current Medications Medications (Trade) Dose Ordered Sig/Marcie Route Start Time Stop Time Status Last Admin (NS Flush) 2 ml UNSCH PRN FLUSH 11/11/16 21:45 (NS Flush) 2 ml BID FLUSH 11/12/16 09:00 11/19/16 09:57 (Narcan Inj) 0.4 mg UNSCH PRN IV 11/11/16 21:45 (VANCOMYCIN for oral use only) 125 mg QID PO 11/12/16 09:00 11/19/16 09:51 (Eliquis) 5 mg BID PO 11/12/16 21:00 11/19/16 09:52 (Synthroid) 75 mcg DAILY@06 PO 11/13/16 06:00 11/18/16 06:17 Pantoprazole Sodium 20 mg 20 mg DAILY PO 11/13/16 09:00 11/19/16 09:52 (D5W 1000 ml Inj) 1,000 ml @ 100 mls/hr Q10H IV 11/13/16 10:30 11/17/16 06:17 (Lactinex) 1 tab TID PO 11/13/16 18:00 11/19/16 09:52 (Namenda) 5 mg DAILY PO 11/14/16 09:00 11/19/16 09:52 (risperDAL) 0.25 mg DAILY PRN PO 11/17/16 07:30 (Restoril) 15 mg DAILY@22 PRN PO 11/17/16 22:00 (Haldol Inj) 5 mg Q4H PRN IM 11/18/16 23:15 11/19/16 03:22 Assessment and Plan Problem List: (1) Opacity of lung on imaging study Status: Acute Plan: Opacities noted on chest xray. WBC improved at 7.1.. No SOB noted. Patient has remained afebrile. Discussed with ID on the and he will evaluate need for antibiotics. Patient currently being treated for C Diff. (2) C. difficile colitis Status: Acute Plan: On oral vancomycin. IV flagyl discontinued. ID following. (3) Altered mental status Status: Acute Plan: Neurology consulted and following. Patient with increased agigtation last night. Haldol given IM X 2. Exelon patch ordered daily (4) Hypernatremia Status: Resolved Plan: Resolved on the will recheck labs today. Nephrology following. (5) Dehydration Status: Resolved Plan: Resolved on the . Will recheck labs today. Nephrology consulted and following (6) Hypokalemia Status: Resolved Plan: Resolved on the will recheck labs today. (7) UTI (urinary tract infection) Status: Resolved Plan: Resolved. Antibiotics complete. ID consulted and following (8) Electrolyte abnormality Status: Resolved Plan: Resolved. Nephrology consulted and following. (9) Adult hypothyroidism Status: Chronic Plan: Continue levothyroxine. TSH level ordered and WNL (10) H/O gastroesophageal reflux (GERD) Status: Chronic Plan: No complaints continue Protonix Discussed Condition With Assessment and plan discussed with Dr. Corado Discharge Planning Plan to discharge to SNF Problem Qualifiers (1) UTI (urinary tract infection): Qualified Code: N30.01 - Acute cystitis with hematuria Shivani Mendoza Nov 19, 2016 12:14
[2016-11-19] MEDS ORDERED: traZODone HCL 50 MG TAB PO PRN (13:15)
--- NOTE | 2016-11-19 13:25 | PD.CONS ---
Provisional Diagnosis Admission Date Nov 11, 2016 at 21:12 [place] I. Dementia with several disturbances [place] II. Deferred History of Present Illness Service Psychiatry Consult Requested By Primary Care Physician Unknown HPI The patient is a 86 years old man, domiciled with his , he lives in [place], is on [facility], no previous psychiatric history, no previous psychiatric hospitalizations, no previous suicidal attempts, he was diagnosed with dementia by primary care physician about 1 year ago, he has been on Namenda since then, multiple medical conditions, including COPD, pneumonia, hypernatremia, hypokalemia, UTI, consulted to psychiatry due to aggressive behavior and combativeness. On psychiatric evaluation today patient was found calm and cooperative, unable to provide significant and reliable information to the psychiatric assessment due to level of dementia, he is disoriented in time and place, he things that he is in a cafeteria with his family, is unable to even guess the time, he feels that he is in 1971, however he is happily demented, happily confused, reports good mood, denies depression, denies suicidal ideation, denies visual and auditory hallucinations. No agitation, combativeness, aggressive behavior. behavioral and mood dysregulation are observed during the evaluation. His , present throughout the interview explains that the patient is usually not aggressive person, very easy to the with, but as his dementia is worsening he has been becoming more agitated. About a year ago the patient was able to drive, to take care of himself, and was mostly functional, but in the last 6 months his dementia has been progressively progressive to the point that he is fully dependent of her. At this moment, she says, patient is at baseline. Review of Systems Constitutional: DENIES: Diaphoretic episodes, Fatigue, Fever, Weight gain, Weight loss, Chills, Dizziness, Change in appetite, Night Sweats Endocrine: DENIES: Heat/cold intolerance, Polydipsia, Polyuria, Polyphagia Eyes: DENIES: Blurred vision, Diplopia, Eye inflammation, Eye pain, Vision loss , Photosensitivity, Double Vision Ears, nose, mouth, throat: DENIES: Tinnitus, Hearing loss, Vertigo, Nasal discharge, Oral lesions, Throat pain, Hoarseness, Ear Pain, Running Nose, Epistaxis, Sinus Pain, Toothache, Odynophagia Respiratory: COMPLAINS OF: Cough Cardiovascular: DENIES: Chest pain, Palpitations, Syncope, Dyspnea on Exertion , PND, Lower Extremity Edema, Orthopnea, Claudication Gastrointestinal: DENIES: Abdominal pain, Black stools, Bloody stools, Constipation, Diarrhea, Nausea, Vomiting, Difficulty Swallowing, Anorexia Genitourinary: DENIES: Sexual dysfunction, Urinary frequency, Urinary incontinence, Urgency, Hematuria, Dysuria, Nocturia, Penile Discharge, Testicular Pain, Testicular Swelling Musculoskeletal: DENIES: Joint pain, Muscle aches, Stiffness, Joint Swelling, Back pain, Neck pain Integumentary: DENIES: Abnormal pigmentation, Nail changes, Pruritus, Rash Hematologic/lymphatic: DENIES: Bruising, Lymphadenopathy Immunologic/allergic: DENIES: Eczema, Urticaria Neurologic: DENIES: Abnormal gait, Headache, Localized weakness, Paresthesias, Seizures, Speech Problems, Tremor, Poor Balance Psychiatric: DENIES: Anxiety, Confusion, Mood changes, Depression, Hallucinations, Agitation, Suicidal Ideation, Homicidal Ideation, Delusions Past Family Social History Coded Allergies: No Known Allergies (Verified , 10/21/16) Reported Medications Cholecalciferol (D3)1,000 Unit Cap 11/11/16 Risperidone (Risperdal)1 Mg Tab1 Mg PO Q12HR #60 TAB Ref 0 11/11/16 Alprazolam 0.25 Mg Tab0.25 Mg PO Q8H PRN (ANXIETY) Ref 0 11/11/16 Citalopram 10 Mg Tab10 Mg PO DAILY #30 TAB Ref 0 11/03/16 Simvastatin (Zocor)80 Mg Tab80 Mg PO DAILY #30 TAB Ref 0 11/03/16 Apixaban (Eliquis)5 Mg Tab5 Mg PO BID #60 TAB Ref 0 11/03/16 Metoprolol Succinate ER 24 HR 25 Mg Tab25 Mg PO DAILY #30 TAB Ref 0 11/03/16 Fish Oil-Cholecalciferol ([place]-3 Fish Oil/Vitamin)1,000-1,000 Mg Cap1 Cap PO DAILY Ref 0 11/03/16 Ferrous Sulfate 325 Mg Xra659 Mg PO DAILY #30 TAB Ref 0 11/03/16 Levothyroxine 75 Mcg Tab75 Mcg PO DAILY #30 TAB Ref 0 11/03/16 Pantoprazole (Protonix)20 Mg Tab20 Mg PO DAILY #30 TAB Ref 0 11/03/16 Amlodipine 2.5 Mg Tab2.5 Mg PO DAILY #30 TAB Ref 0 11/03/16 Current Medications Medications (Trade) Dose Ordered Sig/Marcie Route Start Time Stop Time Status Last Admin (NS Flush) 2 ml UNSCH PRN FLUSH 11/11/16 21:45 (NS Flush) 2 ml BID FLUSH 11/12/16 09:00 11/19/16 09:57 (Narcan Inj) 0.4 mg UNSCH PRN IV 11/11/16 21:45 (VANCOMYCIN for oral use only) 125 mg QID PO 11/12/16 09:00 11/19/16 12:30 (Eliquis) 5 mg BID PO 11/12/16 21:00 11/19/16 09:52 (Synthroid) 75 mcg DAILY@06 PO 11/13/16 06:00 11/18/16 06:17 Pantoprazole Sodium 20 mg 20 mg DAILY PO 11/13/16 09:00 11/19/16 09:52 (D5W 1000 ml Inj) 1,000 ml @ 100 mls/hr Q10H IV 11/13/16 10:30 11/17/16 06:17 (Lactinex) 1 tab TID PO 11/13/16 18:00 11/19/16 12:30 (Namenda) 5 mg DAILY PO 11/14/16 09:00 11/19/16 09:52 (Exelon 4.6 Mg Patch.24hr) 1 patch DAILY TD 11/19/16 14:00 Miscellaneous Information 1 DAILY T-DERMAL 11/20/16 09:00 (Haldol Inj) 1 mg Q4H PRN IM 11/19/16 15:15 UNV (SEROquel) 25 mg BID@09,12 PO 11/20/16 09:00 UNV (Desyrel) 50 mg HS PRN PO 11/19/16 13:15 UNV Family History The denies Social History Patient was born and raised in [place], 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 , 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 Physical Exam Vital Signs Vital Signs Date Time Temp Pulse Resp B/P Pulse Ox O2 Delivery O2 Flow Rate FiO2 11/19/16 12:00 96.6 69 17 105/56 96 11/18/16 15:19 21 I/O 11/18/16 11/18/16 11/19/16 08:00 16:00 00:00 Intake Total 120 ml 720 ml 196 ml Balance 120 ml 720 ml 196 ml Mental Status Examination Appearance elderly man, good hygiene, age appearing, calm and superficially cooperative Speech: Unremarkable Orientation: Person Memory: Impaired (describe) Thought Process: Flight of Ideas, Loose Association Thought Content: Bizarre thinking Attention and Concentration: Abnormal Suicidal Ideation: No Previous Suicide Attempts: No Homicidal Ideation: No Previous Homicide Attempts: No Insight: Poor Judgement: Impulsive Affect: Euthymic Mood: Euthymic Motor Activity: Normal gait Assessment & Plan Problem List: (1) Dementia with behavioral disturbance Assessment & Plan: At the moment of this evaluation the patient does not present any evidence of depression, anxiety, natalya, psychosis. Patient shows impairment in memory, abstract thought, executive function, repetition, with marked apraxia and recent and working memory impairment. At this moment the patient does not show any fluctuation of consciousness, and attention deficit. Described aggressive behavior and agitation, and combativeness, is probably secondary to delirium due to underlying medical conditions. Will decrease Haldol to 1 mg IV every 8 hours when necessary aggressive behavior and agitation , please, noticed that patient had increased QTc interval on initial evaluation in the ER. Psychotropics are well-known by increasing QTc interval. We will discontinue temazepam for insomnia and would replace with trazodone 50 mg at bedtime when necessary insomnia. We will order Seroquel 25 mg twice a day to help with impulse control and behavioral dysregulation. Patient does not make a difference psychiatric admission. expeller worker intervention to help with safe discharge and possible WRITING MANAGER. We will follow-up. Another EKG was ordered. ICD Code: F03.91 Assessment & Plan Estimated LOS: Pierce Jackson MD Nov 19, 2016 13:25
[2016-11-19] MEDS ORDERED: HALOPERIDOL LACTATE 5 MG/ML AMP IM PRN (15:15)
--- NOTE | 2016-11-19 15:40 | HHI.IDPN ---
Note Infectious Disease Note Patient is confused but much more alert and verbal. at bedside. Notes he was functional and active before previous hospitalization in October. Reported to become restless when awake. No cough or SOB. Pasty stool x 1 today. Afebrile. This is a 86-year-old white male who was brought to the emergency department from a senior living facility. The patient was noted to be dehydrated at the senior living facility and they were having difficulty getting IV access to initiate IV fluids. He was brought to the emergency department for evaluation. The patient has dementia. He was recently admitted to the hospital and treated for MSSA bacteremia. He received IV antibiotic with cefazolin up until 11/09/2016. PAST MEDICAL HISTORY 1. Hypercholesteremia. 2. Gastroesophageal reflux disease. 3. Hypertension. 4. Hiatal hernia. 5. Non-Hodgkin's lymphoma. 6. Arthritis. 7. Pacemaker placement reportedly 1 year ago. 8. Bilateral hip replacement. 9. Bilateral knee replacement. ALLERGIES NO KNOWN DRUG ALLERGIES. Current Medications Medications (Trade) Dose Ordered Sig/Marcie Route PRN Reason Start Time Stop Time Status Last Admin Dose Admin IV Flush (NS Flush) 2 ml UNSCH PRN FLUSH FLUSH AFTER USING IV ACCESS 11/11/16 21:45 IV Flush (NS Flush) 2 ml BID FLUSH 11/12/16 09:00 11/19/16 09:57 Naloxone HCl (Narcan Inj) 0.4 mg UNSCH PRN IV SEE LABEL COMMENTS 11/11/16 21:45 Vancomycin HCl (VANCOMYCIN for oral use only) 125 mg QID PO 11/12/16 09:00 11/19/16 12:30 Apixaban (Eliquis) 5 mg BID PO 11/12/16 21:00 11/19/16 09:52 Levothyroxine Sodium (Synthroid) 75 mcg DAILY@06 PO 11/13/16 06:00 11/18/16 06:17 Pantoprazole Sodium 20 mg 20 mg DAILY PO 11/13/16 09:00 11/19/16 09:52 Dextrose (D5W 1000 ml Inj) 1,000 ml @ 100 mls/hr Q10H IV 11/13/16 10:30 11/17/16 06:17 Lactobacillus Acidophilus (Lactinex) 1 tab TID PO 11/13/16 18:00 11/19/16 12:30 Memantine (Namenda) 5 mg DAILY PO 11/14/16 09:00 11/19/16 09:52 Rivastigmine (Exelon 4.6 Mg Patch.24hr) 1 patch DAILY TD 11/19/16 14:00 Miscellaneous Information 1 DAILY T-DERMAL 11/20/16 09:00 Haloperidol Lactate (Haldol Inj) 1 mg Q4H PRN IM AGITATION 11/19/16 15:15 Quetiapine Fumarate (SEROquel) 25 mg BID@09,12 PO 11/20/16 09:00 Trazodone HCl (Desyrel) 50 mg HS PRN PO insomnia 11/19/16 13:15 SOCIAL HISTORY No tobacco use. The patient is a former smoker in the past. No alcohol. No illicit drugs. Down in [place] from [facility] for winter. FAMILY HISTORY Noncontributory. OBJECTIVE: Vital Signs Date Time Temp Pulse Resp B/P Pulse Ox O2 Delivery O2 Flow Rate FiO2 11/17/16 12:00 96.1 74 17 112/69 96 11/17/16 08:00 96.7 60 18 138/60 98 11/17/16 00:00 98.6 80 18 136/78 96 11/16/16 20:00 98.6 79 20 137/65 94 11/16/16 18:25 75 11/16/16 16:00 97.7 74 15 120/89 96 11/16/16 11/16/16 11/17/16 15:00 23:00 07:00 Intake Total 240 ml 470 ml 120 ml Output Total 900 ml Balance -660 ml 470 ml 120 ml Intake Oral 240 ml 120 ml 120 ml IV Total 350 ml Output Urine Total 900 ml # Voids 1 2 # Bowel Movements 3 0 0 Microbiology Date/Time Procedure Status Source Growth 11/15/16 03:30 Urine Culture - Final Complete Urine Catheterized Urine NO GROWTH IN 48 HOURS. PHYSICAL EXAMINATION GENERAL: No acute distress. HEENT: Multiple excoriated areas of the forehead. These are dried and non-weeping and non-draining. Extraocular movements appear grossly intact. No icterus. Oropharynx dry mucosa without lesions. NECK: No swelling or adenopathy. Neck is supple. LUNGS: decreased breath sounds. HEART: Regular, S1-S2. CHEST: Pacemaker in place of the left chest near the left lateral clavicle and it has no erythema or swelling or tenderness. ABDOMEN: Bowel sounds present, soft, no tenderness appreciated. EXTREMITIES: No clubbing or cyanosis or edema. SKIN: No rash. NEURO: Responsive. confused. PSYCHE: Unable to fully assess. IMPRESSION 1. UTI due to Klebsiella. Resolved. 2. C-difficile colitis. 3. Leukocytosis. WBC improved. 4. Abnormal CXR. RECOMMENDATIONS 1. Continue oral vancomycin. 2. Continue lactinex. 3. Monitor stools. 4. Repeat CXR. Continue PO Vancomycin another 9 days. Jair Springer MD Nov 19, 2016 15:39
[2016-11-19] MEDS: RIVASTIGMINE 4.6 MG/24 HOUR PATCH TD SCH (15:48)
[2016-11-19 16:00] VITALS: BP 143/109; PULSE 77; RESP 18; TEMP 96.4; O2SAT 95
--- NOTE | 2016-11-19 16:41 | RADRPT ---
EXAM DATE/TIME: 11/19/2016 16:18 [facility] COMPARISON: CHEST SINGLE AP, November 16, 2016, 22:09. INDICATIONS : Pneumonia. MEDICAL HISTORY : None. SURGICAL HISTORY : Pacemaker. ENCOUNTER: Initial ACUITY: 3 days PAIN SCORE: Non-responsive. LOCATION: Bilateral chest FINDINGS: There is a mild infiltrate in the superior left perihilar area. Otherwise lungs are grossly clear. Th ere is some prominence of pulmonary vasculature. There is moderate cardiomegaly which is stable. No p leural effusions. Pacemaker overlying the left chest. The bony structures are stable. CONCLUSION: 1. Mild infiltrate in the superior left perihilar area. 2. Moderate cardiomegaly with some pulmonary venous congestion. Aleks Segovia MD on November 19, 2016 at 16:38 Board Certified Radiologist. This report was verified electronically.
--- NOTE | 2016-11-19 17:39 | HHI.PR ---
Subjective Remarks slept well 2 noc ago w/o meds Objective Vital Signs Date Time Temp Pulse Resp B/P Pulse Ox O2 Delivery O2 Flow Rate FiO2 11/19/16 12:00 96.6 69 17 105/56 96 11/19/16 08:00 95.9 79 16 132/66 94 11/19/16 04:00 97.1 83 16 123/59 93 11/19/16 00:00 11/18/16 20:00 97.8 118 18 135/63 94 I/O 11/18/16 11/18/16 11/18/16 11/19/16 11/19/16 11/19/16 06:59 14:59 22:59 06:59 14:59 22:59 Intake Total 120 ml 720 ml 196 ml 0 ml 300 ml Balance 120 ml 720 ml 196 ml 0 ml 300 ml Intake Oral 120 ml 720 ml 300 ml IV Total 196 ml 0 ml 0 ml # Voids 2 4 1 4 # Bowel Movements 0 1 Result Diagram: 11/19/16 0440 11/19/16 0445 Objective Remarks awake alert following commands good eye contact calm and articulate but no memory Assessment and Plan Assessment and Plan imp start namenda b12 tsh ok ct neg sleep regiment ad oob all day so sleeps at [facility] 11/19/16 psych has taken over his regiment so i will signoff Luis Armando Perez MD Nov 19, 2016 17:39
[2016-11-19 20:00] VITALS: BP 129/74; PULSE 80; RESP 20; TEMP 97.6; O2SAT 100
[2016-11-20] VITALS (7 sets, daily range): BP systolic 108–148; BP diastolic 58–78; PULSE 67–102; RESP 17–20; TEMP 96.4–98.6; O2SAT 95–98
[2016-11-20] MEDS: DEXTROSE 5% IN WATE 1000ML INJ 1,000 ML IV SCH ×3 (02:30→21:27)
[2016-11-20] MEDS: RESP: ALBUTEROL 2.5 MG/IPRATROPIUM 0.5 MG NEB (SCH) NEB ×5 (04:38→20:53)
[2016-11-20 04:52] LABS: AUTOMATED NEUTROPHIL # 4.6 TH/MM3 (1.8-7.7); BASOPHIL # 0.1 TH/MM3 (0-0.2); EOSINOPHIL # 0.2 TH/MM3 (0-0.4); EOSINOPHIL % 3.8 % (0.0-4.0); HEMATOCRIT 29.2 % (39.0-51.0); HEMO FLAGS DIFF FINAL; LYMPH % 4.8 % (9.0-44.0); LYMPHOCYTE # 0.3 TH/MM3 (1.0-4.8); MEAN CELL VOLUME 81.4 FL (80.0-100.0); MEAN CORPUSCULAR HEMOGLOBIN 26.6 PG (27.0-34.0); MEAN CORPUSCULAR HGB CONC 32.7 % (32.0-36.0); MONO % 12.6 % (0.0-8.0); NEUT % 77.8 % (16.0-70.0); PLATELET COUNT 140 TH/MM3 (150-450); RED BLOOD COUNT 3.59 MIL/MM3 (4.50-5.90); RED CELL DISTRIBUTION WIDTH 18.3 % (11.6-17.2); WHITE BLOOD COUNT 5.9 TH/MM3 (4.0-11.0)
[2016-11-20 05:13] LABS: BICARBONATE 26.9 MEQ/L (21.0-32.0); POTASSIUM 4.5 MEQ/L (3.5-5.1)
[2016-11-20] MEDS: LEVOTHYROXINE SODIUM 75 MCG TAB PO SCH (07:17)
--- NOTE | 2016-11-20 07:35 | HHI.PR ---
Subjective Remarks Patient is awake and calm. Per nursing that patient was more cooperative last night. Reports he still pulls leads off but can be redirected. Speech is improved. Objective Vital Signs Date Time Temp Pulse Resp B/P Pulse Ox O2 Delivery O2 Flow Rate FiO2 11/20/16 04:39 98 Oxyhood 21 11/20/16 00:00 98.6 89 17 148/78 96 11/19/16 20:00 97.6 80 20 129/74 100 11/19/16 16:00 96.4 77 18 143/109 95 11/19/16 12:00 96.6 69 17 105/56 96 11/19/16 08:00 95.9 79 16 132/66 94 I/O 11/19/16 11/19/16 11/19/16 11/20/16 11/20/16 11/20/16 07:00 15:00 23:00 07:00 15:00 23:00 Intake Total 0 ml 300 ml 120 ml 120 ml Balance 0 ml 300 ml 120 ml 120 ml Intake Oral 300 ml 120 ml 120 ml IV Total 0 ml 0 ml 0 ml # Voids 4 2 2 # Bowel Movements 1 0 0 Result Diagram: 11/20/16 0426 11/20/16 0426 Imaging Last 48 hours Impressions Chest X-Ray 11/19/16 0000 Signed Impressions: Service Date/Time: Saturday, November 19, 2016 16:18 - CONCLUSION: 1. Mild infiltrate in the superior left perihilar area. 2. Moderate cardiomegaly with some pulmonary venous congestion. Aleks Segovia MD Other Results GENERAL: This is a thin male in no apparent distress. SKIN: Cool and dry. Skin lesions noted on face. Sutures present from fall. HEAD: Atraumatic. Normocephalic. EYES: Pupils equal round and reactive. NECK: Trachea midline. No JVD. CARDIOVASCULAR: Regular rate and rhythm without murmurs, gallops, or rubs. RESPIRATORY: Clear to auscultation. Breath sounds equal bilaterally. No wheezes , rales, or rhonchi. GASTROINTESTINAL: Abdomen soft, non-tender, nondistended. MUSCULOSKELETAL: Extremities without cyanosis or edema.s. Negative Homans sign bilaterally. NEUROLOGICAL: Speech is quiet but much easier to underestand Medications and IVs Current Medications Medications (Trade) Dose Ordered Sig/Marcie Route Start Time Stop Time Status Last Admin (NS Flush) 2 ml UNSCH PRN FLUSH 11/11/16 21:45 (NS Flush) 2 ml BID FLUSH 11/12/16 09:00 11/20/16 09:27 (Narcan Inj) 0.4 mg UNSCH PRN IV 11/11/16 21:45 (VANCOMYCIN for oral use only) 125 mg QID PO 11/12/16 09:00 11/20/16 09:25 (Eliquis) 5 mg BID PO 11/12/16 21:00 11/20/16 09:25 (Synthroid) 75 mcg DAILY@06 PO 11/13/16 06:00 11/20/16 07:17 Pantoprazole Sodium 20 mg 20 mg DAILY PO 11/13/16 09:00 11/20/16 09:25 (D5W 1000 ml Inj) 1,000 ml @ 100 mls/hr Q10H IV 11/13/16 10:30 11/17/16 06:17 (Lactinex) 1 tab TID PO 11/13/16 18:00 11/20/16 09:25 (Namenda) 5 mg DAILY PO 11/14/16 09:00 11/20/16 09:27 (Exelon 4.6 Mg Patch.24hr) 1 patch DAILY TD 11/19/16 14:00 11/20/16 09:26 Miscellaneous Information 1 DAILY T-DERMAL 11/20/16 09:00 11/20/16 09:00 (Haldol Inj) 1 mg Q4H PRN IM 11/19/16 15:15 (SEROquel) 25 mg BID@09,12 PO 11/20/16 09:00 11/20/16 09:26 (Desyrel) 50 mg HS PRN PO 11/19/16 13:15 Assessment and Plan Problem List: (1) Opacity of lung on imaging study Status: Acute Plan: WBC improved.. No SOB noted. Patient has remained afebrile. Discussed with ID on the and he will evaluate need for antibiotics. Patient currently being treated for C Diff (2) C. difficile colitis Status: Acute Plan: On oral vancomycin. IV flagyl discontinued. ID following. (3) Altered mental status Status: Acute Plan: Psychiatry following. Neurology has signed out. Patient with increased agitation last night. Haldol given IM X 2. Exelon patch ordered daily and Risperdal discontinued and Seroquel started. Noticeable improvement. Speech is clearer. Will try to have restraints removed tonight to anticipate discharge tomorrow if good night. (4) Hypernatremia Status: Resolved Plan: Resolved (5) Dehydration Status: Resolved Plan: Resolved. (6) Hypokalemia Status: Resolved Plan: Resolved on the will recheck labs today. (7) UTI (urinary tract infection) Status: Resolved Plan: Resolved. Antibiotics complete. ID consulted and following (8) Electrolyte abnormality Status: Resolved Plan: Resolved. Nephrology consulted and following. (9) Adult hypothyroidism Status: Chronic Plan: Continue levothyroxine. TSH level ordered and WNL (10) H/O gastroesophageal reflux (GERD) Status: Chronic Plan: No complaints continue Protonix Discussed Condition With Assessment and plan discussed with Dr. Corado Discharge Planning Plan to discharge to SNF Problem Qualifiers (1) UTI (urinary tract infection): Qualified Code: N30.01 - Acute cystitis with hematuria Shivani Mendoza Nov 20, 2016 07:35
[2016-11-20] MEDS: REMOVE OLD PATCH T-DERMAL SCH ×2 (09:00→09:31)
[2016-11-20] MEDS: APIXABAN 5 MG TABLET PO SCH ×2 (09:25→20:16)
[2016-11-20] MEDS: VANCOMYCIN 500 MG VIAL (FOR ORAL USE ONLY) PO SCH ×4 (09:25→20:16)
[2016-11-20] MEDS: PANTOPRAZOLE SOD 20 MG DELAYED RELEASE TAB PO SCH (09:25)
[2016-11-20] MEDS: LACTOBACILLUS ACIDOPHILUS TAB PO SCH ×3 (09:25→16:58)
[2016-11-20] MEDS: RIVASTIGMINE 4.6 MG/24 HOUR PATCH TD SCH (09:26)
[2016-11-20] MEDS: QUEtiapine FUMARATE 25 MG TAB PO SCH ×2 (09:26→12:49)
[2016-11-20] MEDS: SODIUM CHLORIDE 0.9% FLUSH 5 ML FLUSH FLUSH SCH ×2 (09:27→21:27)
[2016-11-20] MEDS: MEMANTINE HCL 5 MG TAB PO SCH (09:27)
[2016-11-20 12:37] LABS: BICARBONATE 26.6 MEQ/L (21.0-32.0); POTASSIUM 4.4 MEQ/L (3.5-5.1)
--- NOTE | 2016-11-20 15:26 | HHI.IDPN ---
Note Infectious Disease Note Patient up in bedside recliner. More alert and verbal. CXR noted. No cough or SOB. Pasty stool x 1 today. Afebrile. This is a 86-year-old white male who was brought to the emergency department from a assisted facility. The patient was noted to be dehydrated at the assisted facility and they were having difficulty getting IV access to initiate IV fluids. He was brought to the emergency department for evaluation. The patient has dementia. He was recently admitted to the hospital and treated for MSSA bacteremia. He received IV antibiotic with cefazolin up until 11/09/2016. PAST MEDICAL HISTORY 1. Hypercholesteremia. 2. Gastroesophageal reflux disease. 3. Hypertension. 4. Hiatal hernia. 5. Non-Hodgkin's lymphoma. 6. Arthritis. 7. Pacemaker placement reportedly 1 year ago. 8. Bilateral hip replacement. 9. Bilateral knee replacement. ALLERGIES NO KNOWN DRUG ALLERGIES. Current Medications Medications (Trade) Dose Ordered Sig/Marcie Route PRN Reason Start Time Stop Time Status Last Admin Dose Admin IV Flush (NS Flush) 2 ml UNSCH PRN FLUSH FLUSH AFTER USING IV ACCESS 11/11/16 21:45 IV Flush (NS Flush) 2 ml BID FLUSH 11/12/16 09:00 11/20/16 09:27 Naloxone HCl (Narcan Inj) 0.4 mg UNSCH PRN IV SEE LABEL COMMENTS 11/11/16 21:45 Vancomycin HCl (VANCOMYCIN for oral use only) 125 mg QID PO 11/12/16 09:00 11/20/16 12:49 Apixaban (Eliquis) 5 mg BID PO 11/12/16 21:00 11/20/16 09:25 Levothyroxine Sodium (Synthroid) 75 mcg DAILY@06 PO 11/13/16 06:00 11/20/16 07:17 Pantoprazole Sodium 20 mg 20 mg DAILY PO 11/13/16 09:00 11/20/16 09:25 Dextrose (D5W 1000 ml Inj) 1,000 ml @ 100 mls/hr Q10H IV 11/13/16 10:30 11/20/16 12:49 Lactobacillus Acidophilus (Lactinex) 1 tab TID PO 11/13/16 18:00 11/20/16 12:49 Memantine (Namenda) 5 mg DAILY PO 11/14/16 09:00 11/20/16 09:27 Rivastigmine (Exelon 4.6 Mg Patch.24hr) 1 patch DAILY TD 11/19/16 14:00 11/20/16 09:26 Miscellaneous Information 1 DAILY T-DERMAL 11/20/16 09:00 11/20/16 09:00 Haloperidol Lactate (Haldol Inj) 1 mg Q4H PRN IM AGITATION 11/19/16 15:15 Quetiapine Fumarate (SEROquel) 25 mg BID@09,12 PO 11/20/16 09:00 11/20/16 12:49 Trazodone HCl (Desyrel) 50 mg HS PRN PO insomnia 11/19/16 13:15 SOCIAL HISTORY No tobacco use. The patient is a former smoker in the past. No alcohol. No illicit drugs. Down in [place] from [facility] for winter. FAMILY HISTORY Noncontributory. OBJECTIVE: Vital Signs Date Time Temp Pulse Resp B/P Pulse Ox O2 Delivery O2 Flow Rate FiO2 11/20/16 12:30 96.9 67 19 120/62 97 11/20/16 09:12 96.7 79 18 124/77 98 11/20/16 09:04 95 21 11/20/16 04:39 98 Oxyhood 21 11/20/16 00:00 98.6 89 17 148/78 96 11/19/16 20:00 97.6 80 20 129/74 100 11/19/16 16:00 96.4 77 18 143/109 95 11/16/16 11/16/16 11/17/16 15:00 23:00 07:00 Intake Total 240 ml 470 ml 120 ml Output Total 900 ml Balance -660 ml 470 ml 120 ml Intake Oral 240 ml 120 ml 120 ml IV Total 350 ml Output Urine Total 900 ml # Voids 1 2 # Bowel Movements 3 0 0 11/19/16 11/19/16 11/20/16 15:00 23:00 07:00 Intake Total 300 ml 120 ml 120 ml Balance 300 ml 120 ml 120 ml Intake Oral 300 ml 120 ml 120 ml IV Total 0 ml 0 ml # Voids 4 2 2 # Bowel Movements 1 0 0 Laboratory Tests Test 11/19/16 11/20/16 04:40 04:26 White Blood Count 7.1 TH/MM3 5.9 TH/MM3 Red Blood Count 3.17 MIL/MM3 3.59 MIL/MM3 Hemoglobin 8.6 GM/DL 9.6 GM/DL Hematocrit 25.5 % 29.2 % Mean Corpuscular Volume 80.4 FL 81.4 FL Mean Corpuscular Hemoglobin 27.2 PG 26.6 PG Mean Corpuscular Hemoglobin 33.8 % 32.7 % Concent Red Cell Distribution Width 18.2 % 18.3 % Platelet Count 106 TH/MM3 140 TH/MM3 Mean Platelet Volume 8.3 FL 8.1 FL Neutrophils (%) (Auto) 77.8 % Lymphocytes (%) (Auto) 4.8 % Monocytes (%) (Auto) 12.6 % Eosinophils (%) (Auto) 3.8 % Basophils (%) (Auto) 1.0 % Neutrophils # (Auto) 4.6 TH/MM3 Lymphocytes # (Auto) 0.3 TH/MM3 Monocytes # (Auto) 0.7 TH/MM3 Eosinophils # (Auto) 0.2 TH/MM3 Basophils # (Auto) 0.1 TH/MM3 CBC Comment DIFF FINAL Differential Comment Laboratory Tests Test 11/19/16 11/20/16 11/20/16 04:45 04:26 11:43 Sodium Level 143 MEQ/L 140 MEQ/L 139 MEQ/L Potassium Level 3.8 MEQ/L 4.5 MEQ/L 4.4 MEQ/L Chloride Level 111 MEQ/L 108 MEQ/L 106 MEQ/L Carbon Dioxide Level 24.4 MEQ/L 26.9 MEQ/L 26.6 MEQ/L Anion Gap 8 MEQ/L 5 MEQ/L 6 MEQ/L Blood Urea Nitrogen 11 MG/DL 12 MG/DL 12 MG/DL Creatinine 0.81 MG/DL 0.86 MG/DL 0.91 MG/DL Estimat Glomerular Filtration 91 ML/MIN 85 ML/MIN 79 ML/MIN Rate Random Glucose 95 MG/DL 98 MG/DL 110 MG/DL Calcium Level 8.0 MG/DL 8.5 MG/DL 8.0 MG/DL Magnesium Level 1.6 MG/DL Microbiology Date/Time Procedure Status Source Growth 11/15/16 03:30 Urine Culture - Final Complete Urine Catheterized Urine NO GROWTH IN 48 HOURS. PHYSICAL EXAMINATION GENERAL: No acute distress. HEENT: Multiple excoriated areas of the forehead. These are dried and non-weeping and non-draining. Extraocular movements appear grossly intact. No icterus. Oropharynx dry mucosa without lesions. NECK: No swelling or adenopathy. Neck is supple. LUNGS: decreased breath sounds. No rhonchi. HEART: Regular, S1-S2. CHEST: Pacemaker in place of the left chest near the left lateral clavicle and it has no erythema or swelling or tenderness. ABDOMEN: Bowel sounds present, soft, no tenderness appreciated. EXTREMITIES: No clubbing or cyanosis or edema. SKIN: No rash. NEURO: Responsive. Appears less confused. PSYCHE: Calm. IMPRESSION 1. UTI due to Klebsiella. Resolved. 2. C-difficile colitis. improved. 3. Leukocytosis. WBC improved. 4. Abnormal CXR. Likely atelectasis. Does no appear to have pneumonia. RECOMMENDATIONS 1. Continue oral vancomycin. Complete on 11/26/16. 2. Continue lactinex. 3. No other recommendations at this time. Monitor for aspiration and avoid additional antibiotics if possible. I will sign off now. Jair Springer MD Nov 20, 2016 15:26
--- NOTE | 2016-11-20 21:14 | EKG ---
Date Performed: 11/19/2016 Time Performed: 16:46:13 PTAGE: 86 years EKG: ELECTRONIC VENTRICULAR PACEMAKER ABNORMAL RHYTHM ECG PREVIOUS TRACING : 11/11/2016 19.34 DOCTOR: Ivan Del Angel Interpretating Date/Time 11/20/2016 21:06:24
[2016-11-21] VITALS: BP 148/82; PULSE 86; RESP 17; TEMP 97.6; O2SAT 97
[2016-11-21] MEDS: RESP: ALBUTEROL 2.5 MG/IPRATROPIUM 0.5 MG NEB (SCH) NEB ×3 (04:35→15:31)
[2016-11-21 05:26] LABS: AUTOMATED NEUTROPHIL # 4.7 TH/MM3 (1.8-7.7); BASOPHIL # 0.1 TH/MM3 (0-0.2); BASOPHIL % 1.1 % (0.0-2.0); EOSINOPHIL # 0.3 TH/MM3 (0-0.4); EOSINOPHIL % 4.8 % (0.0-4.0); HEMATOCRIT 31.8 % (39.0-51.0); HEMO FLAGS DIFF FINAL; LYMPH % 4.1 % (9.0-44.0); LYMPHOCYTE # 0.3 TH/MM3 (1.0-4.8); MEAN CELL VOLUME 82.4 FL (80.0-100.0); MEAN CORPUSCULAR HEMOGLOBIN 26.8 PG (27.0-34.0); MEAN CORPUSCULAR HGB CONC 32.5 % (32.0-36.0); MONO % 13.9 % (0.0-8.0); NEUT % 76.1 % (16.0-70.0); PLATELET COUNT 162 TH/MM3 (150-450); RED BLOOD COUNT 3.87 MIL/MM3 (4.50-5.90); RED CELL DISTRIBUTION WIDTH 18.9 % (11.6-17.2); WHITE BLOOD COUNT 6.2 TH/MM3 (4.0-11.0)
[2016-11-21] MEDS: LEVOTHYROXINE SODIUM 75 MCG TAB PO SCH (05:38)
[2016-11-21 08:00] VITALS: BP 153/74; PULSE 61; RESP 18; TEMP 96.5; O2SAT 94
[2016-11-21] MEDS: DEXTROSE 5% IN WATE 1000ML INJ 1,000 ML IV SCH ×3 (08:30→21:39)
[2016-11-21] MEDS: REMOVE OLD PATCH T-DERMAL SCH (09:00)
[2016-11-21] MEDS: VANCOMYCIN 500 MG VIAL (FOR ORAL USE ONLY) PO SCH ×4 (10:32→21:39)
[2016-11-21] MEDS: LACTOBACILLUS ACIDOPHILUS TAB PO SCH ×3 (10:32→17:36)
[2016-11-21] MEDS: MEMANTINE HCL 5 MG TAB PO SCH (10:32)
[2016-11-21] MEDS: PANTOPRAZOLE SOD 20 MG DELAYED RELEASE TAB PO SCH (10:32)
[2016-11-21] MEDS: RIVASTIGMINE 4.6 MG/24 HOUR PATCH TD SCH (10:35)
[2016-11-21] MEDS: APIXABAN 5 MG TABLET PO SCH ×2 (10:38→21:39)
[2016-11-21] MEDS: QUEtiapine FUMARATE 25 MG TAB PO SCH ×2 (10:38→12:59)
[2016-11-21] MEDS: SODIUM CHLORIDE 0.9% FLUSH 5 ML FLUSH FLUSH SCH ×2 (10:38→21:00)
[2016-11-21 12:00] VITALS: BP 149/72; PULSE 53; RESP 17; TEMP 96.9; O2SAT 93
[2016-11-21] MEDS ORDERED: VANC500I3 PO (12:25)
[2016-11-21] MEDS ORDERED: NAME5TAB2 PO (12:25)
[2016-11-21] MEDS ORDERED: LACT PO (12:25)
[2016-11-21] MEDS ORDERED: TRAZ50TA12 PO (12:25)
[2016-11-21] MEDS ORDERED: RIVA4.6T TD (12:25)
[2016-11-21] MEDS ORDERED: QUET1TAB7 PO (12:25)
--- NOTE | 2016-11-21 12:32 | HHI.DS ---
Shivani Mendoza [facility] 11/21/16 1232: Discharge Summary Admission Date Nov 11, 2016 at 21:12 Admitting Diagnosis leukocytosis; bandemia; dehydration (1) UTI (urinary tract infection) Brief History 86 year old male with history of CAD, pacemaker placement, AAA status post repair in March 2016, dementia, lymphoma first diagnosed 14-15 years ago, acid reflux, hypothyroid disorder, left foot drop, osteoarthritis,and of skin cancer presents to the ED for evaluation from rehab. Patient is followed by Dr. Corado at [facility]. Patient has been have increased agitation over the past 2 weeks. He has gradually become more lethargic and is now dehydrated and Rehab was unable to adminster IV fluids. He appears weak and is very soft spoken; difficult to hear and understand. He had a previous admission 2015-10/30/2016 for sepsis. MSSA+ blood cultures. Blood cultures are thus far negative. UA appears positive for UTI. CBC/BMP: 11/21/16 0443 11/20/16 1143 Significant Findings Laboratory Tests Test 11/19/16 11/19/16 11/20/16 11/20/16 04:40 04:45 04:26 11:43 Red Blood Count 3.17 MIL/MM3 3.59 MIL/MM3 (4.50-5.90) (4.50-5.90) Hemoglobin 8.6 GM/DL 9.6 GM/DL (13.0-17.0) (13.0-17.0) Hematocrit 25.5 % 29.2 % (39.0-51.0) (39.0-51.0) Red Cell Distribution Width 18.2 % 18.3 % (11.6-17.2) (11.6-17.2) Platelet Count 106 TH/MM3 140 TH/MM3 (150-450) (150-450) Chloride Level 111 MEQ/L 108 MEQ/L (98-107) (98-107) Calcium Level 8.0 MG/DL 8.0 MG/DL (8.5-10.1) (8.5-10.1) Mean Corpuscular Hemoglobin 26.6 PG (27.0-34.0) Neutrophils (%) (Auto) 77.8 % (16.0-70.0) Lymphocytes (%) (Auto) 4.8 % (9.0-44.0) Monocytes (%) (Auto) 12.6 % (0.0-8.0) Lymphocytes # (Auto) 0.3 TH/MM3 (1.0-4.8) Estimat Glomerular Filtration 85 ML/MIN (>89) 79 ML/MIN (>89) Rate Random Glucose 110 MG/DL (74-106) Test 11/21/16 04:43 Red Blood Count 3.87 MIL/MM3 (4.50-5.90) Hemoglobin 10.3 GM/DL (13.0-17.0) Hematocrit 31.8 % (39.0-51.0) Mean Corpuscular Hemoglobin 26.8 PG (27.0-34.0) Red Cell Distribution Width 18.9 % (11.6-17.2) Neutrophils (%) (Auto) 76.1 % (16.0-70.0) Lymphocytes (%) (Auto) 4.1 % (9.0-44.0) Monocytes (%) (Auto) 13.9 % (0.0-8.0) Eosinophils (%) (Auto) 4.8 % (0.0-4.0) Lymphocytes # (Auto) 0.3 TH/MM3 (1.0-4.8) PE at Discharge GENERAL: This is a thin male in no apparent distress. SKIN: Cool and dry. Skin lesions noted on face. Sutures present from fall. HEAD: Atraumatic. Normocephalic. EYES: Pupils equal round and reactive. NECK: Trachea midline. No JVD. CARDIOVASCULAR: Regular rate and rhythm without murmurs, gallops, or rubs. RESPIRATORY: Clear to auscultation. Breath sounds equal bilaterally. No wheezes , rales, or rhonchi. GASTROINTESTINAL: Abdomen soft, non-tender, nondistended. MUSCULOSKELETAL: Extremities without cyanosis or edema.s. Negative Homans sign bilaterally. NEUROLOGICAL: Speech is quiet but much easier to underestand Transfer Summary 86 year old male with history of CAD, pacemaker placement, AAA status post repair in March 2016, dementia, lymphoma first diagnosed 14-15 years ago, acid reflux, hypothyroid disorder, left foot drop, osteoarthritis,and of skin cancer presents to the ED for evaluation from rehab. Patient is followed by Dr. Corado at [facility]. Patient has been have increased agitation over the past 2 weeks. He has gradually become more lethargic and is now dehydrated and Rehab was unable to administer IV fluids. He appears weak and is very soft spoken; difficult to hear and understand. He had a previous admission 2015-10/30/2016 for sepsis. MSSA+ blood cultures. Blood cultures are thus far negative. UA appears positive for UTI. He was followed by ID, psych, and neuro during his stay. He was also diagnosed with C Diff during his stay and was treated with vancomycin with a stop date of the . Over the course of his hospitalization he had agitation and his medication has been altered. He is being discharged on Exelon patch and Seroquel for dementia. Patient will be discharged to [facility]. Pt Condition on Discharge: Fair Discharge Disposition: Discharge to SNF Discharge Instructions DIET: Follow Instructions for: As Tolerated, No Restrictions Speech Therapy-Diet Recommenda: Pureed Activities you can perform: See Additionl Instruction New Medications: Lactobacillus Acidophilus (Acidophilus/l-Sporogenes) 1 Tab Tab 1 TAB PO TID Diarrhea #90 TAB Memantine (Namenda) 5 Mg Tab 5 MG PO DAILY Agitation #30 TAB Quetiapine (Quetiapine) 25 Mg Tab 25 MG PO BID@09,12 Agitation #60 TAB Rivastigmine Patch (Exelon Patch) 4.6 mg/24 hr Patch 1 PATCH TD DAILY Agitation #30 PATCH Trazodone (Trazodone) 50 Mg Tab 50 MG PO HS PRN insomnia #30 TAB Vancomycin Inj (Vancomycin Inj) 500 Mg Inj 125 MG PO QID Diarrhea #6 INJECTION Continued Medications: Apixaban (Eliquis) 5 Mg Tab 5 MG PO BID Blood Clot Prevention #60 Ref 0 TAB Cholecalciferol (D3) 1,000 Unit Cap Fish Oil-Cholecalciferol ([place]-3 Fish Oil/Vitamin) 1,000-1,000 Mg Cap 1 CAP PO DAILY Nutritional Supplement Ref 0 CAP Levothyroxine (Levothyroxine) 75 Mcg Tab 75 MCG PO DAILY Thyroid #30 Ref 0 TAB Pantoprazole (Protonix) 20 Mg Tab 20 MG PO DAILY Reflux #30 Ref 0 TAB Simvastatin (Zocor) 80 Mg Tab 80 MG PO DAILY Cholesterol Management #30 Ref 0 TAB Discontinued Medications: Alprazolam (Alprazolam) 0.25 Mg Tab 0.25 MG PO Q8H PRN ANXIETY Ref 0 TAB Amlodipine (Amlodipine) 2.5 Mg Tab 2.5 MG PO DAILY Blood Pressure Management #30 Ref 0 TAB Citalopram (Citalopram) 10 Mg Tab 10 MG PO DAILY Control Depression #30 Ref 0 TAB Ferrous Sulfate (Ferrous Sulfate) 325 Mg Tab 325 MG PO DAILY Nutritional Supplement #30 Ref 0 TAB Metoprolol Succinate ER 24 HR (Metoprolol Succinate ER 24 HR) 25 Mg Tab 25 MG PO DAILY #30 Ref 0 TAB Risperidone (Risperdal) 1 Mg Tab 1 MG PO Q12HR #60 Ref 0 TAB Additional Information Will be followed by Dr. Corado at [facility] 11/24/16 0727: Discharge Summary Discharge Date: Nov 24, 2016 (1) C. difficile colitis Diagnosis: Principal CBC/BMP: 11/21/16 0443 11/20/16 1143 Hospital Course Admitted with c-difficile colitis with dehydration. He was evaluated by ID and antibiotics prescribed with subsequent improvement. He was rehydrated and his mentation returned to his baseline dementia. On 11/24 he was deemed stable for discharge back to [facility] where he previously resided in stable condition , where he will be followed by Dr. Corado's service. Pt Condition on Discharge: Stable Discharge Disposition: Discharge to SNF Discharge Instructions DIET: Follow Instructions for: Pureed (Wired Jaw) Speech Therapy-Diet Recommenda: Pureed Activities you can perform: Full Weight Bearing, Shower/Bath New Medications: Lactobacillus Acidophilus (Acidophilus/l-Sporogenes) 1 Tab Tab 1 TAB PO TID Diarrhea #90 TAB Memantine (Namenda) 5 Mg Tab 5 MG PO DAILY Agitation #30 TAB Quetiapine (Quetiapine) 25 Mg Tab 25 MG PO BID@09,12 Agitation #60 TAB Rivastigmine Patch (Exelon Patch) 4.6 mg/24 hr Patch 1 PATCH TD DAILY Agitation #30 PATCH Trazodone (Trazodone) 50 Mg Tab 50 MG PO HS PRN insomnia #30 TAB Vancomycin Inj (Vancomycin Inj) 500 Mg Inj 125 MG PO QID Diarrhea #6 INJECTION Continued Medications: Apixaban (Eliquis) 5 Mg Tab 5 MG PO BID Blood Clot Prevention #60 Ref 0 TAB Cholecalciferol (D3) 1,000 Unit Cap Fish Oil-Cholecalciferol ([place]-3 Fish Oil/Vitamin) 1,000-1,000 Mg Cap 1 CAP PO DAILY Nutritional Supplement Ref 0 CAP Levothyroxine (Levothyroxine) 75 Mcg Tab 75 MCG PO DAILY Thyroid #30 Ref 0 TAB Pantoprazole (Protonix) 20 Mg Tab 20 MG PO DAILY Reflux #30 Ref 0 TAB Simvastatin (Zocor) 80 Mg Tab 80 MG PO DAILY Cholesterol Management #30 Ref 0 TAB Discontinued Medications: Alprazolam (Alprazolam) 0.25 Mg Tab 0.25 MG PO Q8H PRN ANXIETY Ref 0 TAB Amlodipine (Amlodipine) 2.5 Mg Tab 2.5 MG PO DAILY Blood Pressure Management #30 Ref 0 TAB Citalopram (Citalopram) 10 Mg Tab 10 MG PO DAILY Control Depression #30 Ref 0 TAB Ferrous Sulfate (Ferrous Sulfate) 325 Mg Tab 325 MG PO DAILY Nutritional Supplement #30 Ref 0 TAB Metoprolol Succinate ER 24 HR (Metoprolol Succinate ER 24 HR) 25 Mg Tab 25 MG PO DAILY #30 Ref 0 TAB Risperidone (Risperdal) 1 Mg Tab 1 MG PO Q12HR #60 Ref 0 TAB Shivani Mendoza Nov 21, 2016 12:32 [place] Mustafa Nov 24, 2016 07:27
[2016-11-21 16:00] VITALS: BP 127/95; PULSE 63; RESP 17; TEMP 96.4; O2SAT 98
[2016-11-21] MEDS ORDERED: QUEtiapine FUMARATE 25 MG TAB PO ONE (16:45)
[2016-11-22] VITALS: BP 155/73; PULSE 66; RESP 20; TEMP 97.9; O2SAT 94
[2016-11-22] MEDS: LEVOTHYROXINE SODIUM 75 MCG TAB PO SCH (06:00)
[2016-11-22 08:00] VITALS: BP 137/77; PULSE 57; RESP 17; TEMP 97; O2SAT 96
[2016-11-22] MEDS: SODIUM CHLORIDE 0.9% FLUSH 5 ML FLUSH FLUSH SCH ×2 (09:00→20:46)
[2016-11-22] MEDS ORDERED: QUEtiapine FUMARATE 25 MG TAB PO SCH (09:00)
[2016-11-22] MEDS: REMOVE OLD PATCH T-DERMAL SCH (09:00)
[2016-11-22] MEDS: PANTOPRAZOLE SOD 20 MG DELAYED RELEASE TAB PO SCH (09:00)
[2016-11-22] MEDS: RIVASTIGMINE 4.6 MG/24 HOUR PATCH TD SCH (10:08)
[2016-11-22] MEDS: APIXABAN 5 MG TABLET PO SCH ×2 (10:09→20:47)
[2016-11-22] MEDS: VANCOMYCIN 500 MG VIAL (FOR ORAL USE ONLY) PO SCH ×4 (10:09→20:47)
[2016-11-22] MEDS: LACTOBACILLUS ACIDOPHILUS TAB PO SCH ×3 (10:09→17:30)
[2016-11-22] MEDS: MEMANTINE HCL 5 MG TAB PO SCH (10:09)
--- NOTE | 2016-11-22 11:22 | HHI.PR ---
Subjective Remarks confused last pm cash manager added po meds increassed im injection avoided Objective Vital Signs Date Time Temp Pulse Resp B/P Pulse Ox O2 Delivery O2 Flow Rate FiO2 11/22/16 08:00 97.0 57 17 137/77 96 11/22/16 00:00 97.9 66 20 155/73 94 11/21/16 16:00 96.4 63 17 127/95 98 11/21/16 12:00 96.9 53 17 149/72 93 I/O 11/21/16 11/21/16 11/21/16 11/22/16 11/22/16 11/22/16 07:00 15:00 23:00 07:00 15:00 23:00 Intake Total 120 ml 0 ml 120 ml 60 ml Balance 120 ml 0 ml 120 ml 60 ml Intake Oral 120 ml 120 ml 60 ml IV Total 0 ml 0 ml # Voids 2 4 4 # Bowel Movements 2 0 1 Result Diagram: 11/21/16 0443 11/20/16 1143 Imaging Last Impressions Chest X-Ray 11/19/16 0000 Signed Impressions: Service Date/Time: Saturday, November 19, 2016 16:18 - CONCLUSION: 1. Mild infiltrate in the superior left perihilar area. 2. Moderate cardiomegaly with some pulmonary venous congestion. Aleks Segovia MD Objective Remarks GENERAL: SKIN: Warm and dry. HEAD: Atraumatic. Normocephalic. EYES: Pupils equal and round. No scleral icterus. No injection or drainage. ENT: No nasal bleeding or discharge. Mucous membranes pink and moist. NECK: Trachea midline. No JVD. CARDIOVASCULAR: Regular rate and rhythm. RESPIRATORY: No accessory muscle use.. Breath sounds diminished GASTROINTESTINAL: Abdomen soft, non-tender, nondistended. Hepatic and splenic margins not palpable. MUSCULOSKELETAL: Extremities without clubbing, cyanosis, or edema. No obvious deformities. NEUROLOGICAL: Awake and alert. No obvious cranial nerve deficits. Motor grossly within normal limits. Five out of 5 muscle strength in the arms and legs. Normal speech. PSYCHIATRIC: calm with risperdal Current Medications Medications (Trade) Dose Ordered Sig/Marcie Route PRN Reason Start Time Stop Time Status Last Admin Dose Admin IV Flush (NS Flush) 2 ml UNSCH PRN FLUSH FLUSH AFTER USING IV ACCESS 11/11/16 21:45 IV Flush (NS Flush) 2 ml BID FLUSH 11/12/16 09:00 Naloxone HCl (Narcan Inj) 0.4 mg UNSCH PRN IV SEE LABEL COMMENTS 11/11/16 21:45 Vancomycin HCl (VANCOMYCIN for oral use only) 125 mg QID PO 11/12/16 09:00 11/15/16 16:52 Apixaban (Eliquis) 5 mg BID PO 11/12/16 21:00 11/15/16 08:38 Levothyroxine Sodium (Synthroid) 75 mcg DAILY@06 PO 11/13/16 06:00 11/15/16 05:17 Pantoprazole Sodium 20 mg 20 mg DAILY PO 11/13/16 09:00 11/15/16 08:38 Metronidazole 100 ml @ 100 mls/hr Q6H IV 11/12/16 16:00 11/15/16 16:51 Dextrose (D5W 1000 ml Inj) 1,000 ml @ 100 mls/hr Q10H IV 11/13/16 10:30 11/15/16 12:26 Lactobacillus Acidophilus (Lactinex) 1 tab TID PO 11/13/16 18:00 11/15/16 16:52 Memantine (Namenda) 5 mg DAILY PO 11/14/16 09:00 11/15/16 08:38 Medications and IVs Current Medications Medications (Trade) Dose Ordered Sig/Marcie Route PRN Reason Start Time Stop Time Status Last Admin Dose Admin IV Flush (NS Flush) 2 ml UNSCH PRN FLUSH FLUSH AFTER USING IV ACCESS 11/11/16 21:45 IV Flush (NS Flush) 2 ml BID FLUSH 11/12/16 09:00 11/21/16 10:38 Naloxone HCl (Narcan Inj) 0.4 mg UNSCH PRN IV SEE LABEL COMMENTS 11/11/16 21:45 Vancomycin HCl (VANCOMYCIN for oral use only) 125 mg QID PO 11/12/16 09:00 11/22/16 10:09 Apixaban (Eliquis) 5 mg BID PO 11/12/16 21:00 11/22/16 10:09 Levothyroxine Sodium (Synthroid) 75 mcg DAILY@06 PO 11/13/16 06:00 11/21/16 05:38 Pantoprazole Sodium 20 mg 20 mg DAILY PO 11/13/16 09:00 11/21/16 10:32 Dextrose (D5W 1000 ml Inj) 1,000 ml @ 100 mls/hr Q10H IV 11/13/16 10:30 11/20/16 12:49 Lactobacillus Acidophilus (Lactinex) 1 tab TID PO 11/13/16 18:00 11/22/16 10:09 Memantine (Namenda) 5 mg DAILY PO 11/14/16 09:00 11/22/16 10:09 Rivastigmine (Exelon 4.6 Mg Patch.24hr) 1 patch DAILY TD 11/19/16 14:00 11/22/16 10:08 Miscellaneous Information 1 DAILY T-DERMAL 11/20/16 09:00 11/22/16 09:00 Quetiapine Fumarate (SEROquel) 50 mg TIDAC PO 11/22/16 12:00 Assessment and Plan Problem List: (1) C. difficile colitis Status: Acute (2) Dehydration Status: Resolved (3) Sepsis Status: Acute Assessment and Plan dehydration improved Cdiff stabilizing dementia will titrate serroquel pneumoniae have avoided further abx due to c diff will repeat cxr Problem Qualifiers (1) Sepsis: Qualified Code: A41.9 - Sepsis, due to unspecified organism Petar Corado DO Nov 22, 2016 11:22
[2016-11-22 12:00] VITALS: BP 167/93; PULSE 68; RESP 17; TEMP 96.2; O2SAT 100
[2016-11-22] MEDS: QUEtiapine FUMARATE 25 MG TAB PO SCH ×2 (12:04→17:30)
[2016-11-22] MEDS: DEXTROSE 5% IN WATE 1000ML INJ 1,000 ML IV SCH ×2 (14:30→23:49)
--- NOTE | 2016-11-22 15:52 | RADRPT ---
EXAM DATE/TIME: 11/22/2016 15:23 [place] COMPARISON: CHEST SINGLE AP, November 19, 2016, 16:18. INDICATIONS : Pneumonia. MEDICAL HISTORY : None. SURGICAL HISTORY : Pacemaker. ENCOUNTER: Subsequent ACUITY: 3 days PAIN SCORE: 5/10 LOCATION: Bilateral chest FINDINGS: Frontal and wheelchair lateral views of the chest demonstrate cardiac silhouette size at the upper li mits for normal calcification of the aorta. Left chest wall cardiac pacing device is present. Lungs a re underinflated and there is bibasilar airspace opacity. There is blunting of the costophrenic sulci bilaterally on the lateral view. Endoluminal stent graft is present within the abdominal aorta. No p neumothorax is identified. CONCLUSION: Underinflated examination with bibasilar airspace opacity representing either atelectasis or airspace consolidation. Small bilateral pleural effusions are also present. Jordan Hernadez MD on November 22, 2016 at 15:49 Board Certified Radiologist. This report was verified electronically.
[2016-11-22 16:00] VITALS: BP 174/77; PULSE 64; RESP 17; TEMP 96.6; O2SAT 97
[2016-11-22 20:00] VITALS: BP 146/73; PULSE 63; RESP 18; TEMP 96; O2SAT 97
[2016-11-22 23:15] LABS: ALKALINE PHOSPHATASE 147 U/L (45-117); ALT (GPT) 25 U/L (12-78); ANION GAP 6 MEQ/L (5-15); AST (GOT) 41 U/L (15-37); BICARBONATE 27.6 MEQ/L (21.0-32.0); BLOOD UREA NITROGEN 7 MG/DL (7-18); CHLORIDE 108 MEQ/L (98-107); GLOMERULAR FILTRATION RATE 93 ML/MIN (>89); POTASSIUM 3.7 MEQ/L (3.5-5.1); SODIUM (NA) 142 MEQ/L (136-145); TOTAL BILIRUBIN ADULT 0.5 MG/DL (0.2-1.0)
[2016-11-23] VITALS: BP 148/70; PULSE 81; RESP 16; TEMP 97.1; O2SAT 95
[2016-11-23] MEDS: LEVOTHYROXINE SODIUM 75 MCG TAB PO SCH (05:43)
[2016-11-23] MEDS: MEMANTINE HCL 5 MG TAB PO SCH (07:57)
[2016-11-23] MEDS: VANCOMYCIN 500 MG VIAL (FOR ORAL USE ONLY) PO SCH ×3 (07:57→21:26)
[2016-11-23] MEDS: QUEtiapine FUMARATE 25 MG TAB PO SCH ×4 (07:58→14:46)
[2016-11-23] MEDS: LACTOBACILLUS ACIDOPHILUS TAB PO SCH ×3 (07:58→14:47)
[2016-11-23] MEDS: PANTOPRAZOLE SOD 20 MG DELAYED RELEASE TAB PO SCH (07:58)
[2016-11-23] MEDS: APIXABAN 5 MG TABLET PO SCH ×2 (07:58→21:27)
[2016-11-23] MEDS: REMOVE OLD PATCH T-DERMAL SCH (07:59)
[2016-11-23] MEDS: RIVASTIGMINE 4.6 MG/24 HOUR PATCH TD SCH (07:59)
[2016-11-23 08:00] VITALS: BP 80/50; PULSE 64; RESP 20; TEMP 95.6; O2SAT 90
[2016-11-23] MEDS: SODIUM CHLORIDE 0.9% FLUSH 5 ML FLUSH FLUSH SCH ×2 (09:00→21:27)
--- NOTE | 2016-11-23 10:05 | HHI.PR ---
Subjective Remarks doing better no IM haldol or other IM antipsychotic given last pm pt a bit sedater on seroquel 50mg tid though Objective Vital Signs Date Time Temp Pulse Resp B/P Pulse Ox O2 Delivery O2 Flow Rate FiO2 11/23/16 08:00 95.6 64 20 80/50 90 11/23/16 00:00 97.1 81 16 148/70 95 11/22/16 20:00 96.0 63 18 146/73 97 11/22/16 16:00 96.6 64 17 174/77 97 11/22/16 12:00 96.2 68 17 167/93 100 I/O 11/22/16 11/22/16 11/22/16 11/23/16 11/23/16 11/23/16 07:00 15:00 23:00 07:00 15:00 23:00 Intake Total 60 ml 60 ml 60 ml Output Total 3 ml Balance 60 ml 57 ml 60 ml Intake Oral 60 ml 60 ml 60 ml IV Total 0 ml Output Urine Total 3 ml # Voids 4 5 4 # Bowel Movements 1 4 2 1 Result Diagram: 11/21/16 0443 11/22/16 2238 Imaging Last Impressions Chest X-Ray 11/22/16 0000 Signed Impressions: Service Date/Time: Tuesday, November 22, 2016 15:23 - CONCLUSION: Underinflated examination with bibasilar airspace opacity representing either atelectasis or airspace consolidation. Small bilateral pleural effusions are also present. Jordan Hernadez MD Other Results sleepy now Objective Remarks GENERAL: SKIN: Warm and dry. HEAD: Atraumatic. Normocephalic. EYES: Pupils equal and round. No scleral icterus. No injection or drainage. ENT: No nasal bleeding or discharge. Mucous membranes pink and moist. NECK: Trachea midline. No JVD. CARDIOVASCULAR: Regular rate and rhythm. RESPIRATORY: No accessory muscle use.. Breath sounds diminished GASTROINTESTINAL: Abdomen soft, non-tender, nondistended. Hepatic and splenic margins not palpable. MUSCULOSKELETAL: Extremities without clubbing, cyanosis, or edema. No obvious deformities. NEUROLOGICAL: Awake and alert. No obvious cranial nerve deficits. frail and weak Normal speech. PSYCHIATRIC: calm with seroquel but may be a bit sedated Current Medications Medications (Trade) Dose Ordered Sig/Marcie Route PRN Reason Start Time Stop Time Status Last Admin Dose Admin IV Flush (NS Flush) 2 ml UNSCH PRN FLUSH FLUSH AFTER USING IV ACCESS 11/11/16 21:45 IV Flush (NS Flush) 2 ml BID FLUSH 11/12/16 09:00 Naloxone HCl (Narcan Inj) 0.4 mg UNSCH PRN IV SEE LABEL COMMENTS 11/11/16 21:45 Vancomycin HCl (VANCOMYCIN for oral use only) 125 mg QID PO 11/12/16 09:00 11/15/16 16:52 Apixaban (Eliquis) 5 mg BID PO 11/12/16 21:00 11/15/16 08:38 Levothyroxine Sodium (Synthroid) 75 mcg DAILY@06 PO 11/13/16 06:00 11/15/16 05:17 Pantoprazole Sodium 20 mg 20 mg DAILY PO 11/13/16 09:00 11/15/16 08:38 Metronidazole 100 ml @ 100 mls/hr Q6H IV 11/12/16 16:00 11/15/16 16:51 Dextrose (D5W 1000 ml Inj) 1,000 ml @ 100 mls/hr Q10H IV 11/13/16 10:30 11/15/16 12:26 Lactobacillus Acidophilus (Lactinex) 1 tab TID PO 11/13/16 18:00 11/15/16 16:52 Memantine (Namenda) 5 mg DAILY PO 11/14/16 09:00 11/15/16 08:38 Medications and IVs Current Medications Medications (Trade) Dose Ordered Sig/Marcie Route PRN Reason Start Time Stop Time Status Last Admin Dose Admin IV Flush (NS Flush) 2 ml UNSCH PRN FLUSH FLUSH AFTER USING IV ACCESS 11/11/16 21:45 IV Flush (NS Flush) 2 ml BID FLUSH 11/12/16 09:00 11/21/16 10:38 Naloxone HCl (Narcan Inj) 0.4 mg UNSCH PRN IV SEE LABEL COMMENTS 11/11/16 21:45 Vancomycin HCl (VANCOMYCIN for oral use only) 125 mg QID PO 11/12/16 09:00 11/23/16 07:57 Apixaban (Eliquis) 5 mg BID PO 11/12/16 21:00 11/23/16 07:58 Levothyroxine Sodium (Synthroid) 75 mcg DAILY@06 PO 11/13/16 06:00 11/23/16 05:43 Pantoprazole Sodium 20 mg 20 mg DAILY PO 11/13/16 09:00 11/23/16 07:58 Dextrose (D5W 1000 ml Inj) 1,000 ml @ 100 mls/hr Q10H IV 11/13/16 10:30 11/20/16 12:49 Lactobacillus Acidophilus (Lactinex) 1 tab TID PO 11/13/16 18:00 11/23/16 07:58 Memantine (Namenda) 5 mg DAILY PO 11/14/16 09:00 11/23/16 07:57 Rivastigmine (Exelon 4.6 Mg Patch.24hr) 1 patch DAILY TD 11/19/16 14:00 11/23/16 07:59 Miscellaneous Information 1 DAILY T-DERMAL 11/20/16 09:00 11/23/16 07:59 Quetiapine Fumarate (SEROquel) 50 mg TIDAC PO 11/22/16 12:00 11/23/16 07:58 Assessment and Plan Problem List: (1) C. difficile colitis Status: Acute (2) Dehydration Status: Resolved (3) Sepsis Status: Acute Assessment and Plan dehydration improved Cdiff stabilizing dementia will titrate serroquel decrease am dose to 25 m5 but retain pm dose of 50mg lunch and dinner as pt worsens in the afternoons if no further im meds anticipate dc to snf in am pneumoniae stable no cough no temp cxr unchanged Discussed Condition With sitter Problem Qualifiers (1) Sepsis: Qualified Code: A41.9 - Sepsis, due to unspecified organism Petar Corado DO Nov 23, 2016 10:05
[2016-11-23] MEDS: DEXTROSE 5% IN WATE 1000ML INJ 1,000 ML IV SCH ×2 (10:30→20:30)
[2016-11-23 16:00] VITALS: BP 128/69; PULSE 70; RESP 20; TEMP 95.9; O2SAT 90
[2016-11-23 20:00] VITALS: BP 164/75; PULSE 61; RESP 20; TEMP 96.1; O2SAT 95
[2016-11-24] MEDS: VANCOMYCIN 500 MG VIAL (FOR ORAL USE ONLY) PO SCH ×5 (02:07→22:36)
[2016-11-24] MEDS: DEXTROSE 5% IN WATE 1000ML INJ 1,000 ML IV SCH (06:30)
[2016-11-24] MEDS: LEVOTHYROXINE SODIUM 75 MCG TAB PO SCH (06:50)
[2016-11-24 08:00] VITALS: BP 159/68; PULSE 59; RESP 17; TEMP 97.4; O2SAT 97
[2016-11-24] MEDS: MEMANTINE HCL 5 MG TAB PO SCH (08:14)
[2016-11-24] MEDS: LACTOBACILLUS ACIDOPHILUS TAB PO SCH ×3 (08:14→16:50)
[2016-11-24] MEDS: PANTOPRAZOLE SOD 20 MG DELAYED RELEASE TAB PO SCH (08:14)
[2016-11-24] MEDS: APIXABAN 5 MG TABLET PO SCH ×2 (08:14→22:36)
[2016-11-24] MEDS: QUEtiapine FUMARATE 25 MG TAB PO SCH ×3 (08:14→19:55)
[2016-11-24] MEDS: REMOVE OLD PATCH T-DERMAL SCH (08:15)
[2016-11-24] MEDS: RIVASTIGMINE 4.6 MG/24 HOUR PATCH TD SCH (08:15)
[2016-11-24] MEDS: SODIUM CHLORIDE 0.9% FLUSH 5 ML FLUSH FLUSH SCH ×2 (09:00→21:00)
[2016-11-24 09:01] LABS: AUTOMATED NEUTROPHIL # 2.4 TH/MM3 (1.8-7.7); BASOPHIL # 0.1 TH/MM3 (0-0.2); BASOPHIL % 1.5 % (0.0-2.0); EOSINOPHIL # 0.2 TH/MM3 (0-0.4); HEMATOCRIT 37.2 % (39.0-51.0); HEMO FLAGS DIFF FINAL; LYMPH % 9.7 % (9.0-44.0); LYMPHOCYTE # 0.3 TH/MM3 (1.0-4.8); MEAN CORPUSCULAR HEMOGLOBIN 26.2 PG (27.0-34.0); MONO % 13.3 % (0.0-8.0); NEUT % 70.5 % (16.0-70.0); PLATELET COUNT 177 TH/MM3 (150-450); RED BLOOD COUNT 4.54 MIL/MM3 (4.50-5.90); RED CELL DISTRIBUTION WIDTH 18.7 % (11.6-17.2); WHITE BLOOD COUNT 3.4 TH/MM3 (4.0-11.0)
[2016-11-24 09:39] LABS: BICARBONATE 26.5 MEQ/L (21.0-32.0); POTASSIUM 4.8 MEQ/L (3.5-5.1)
[2016-11-24 12:00] VITALS: BP 140/72; PULSE 65; RESP 20; TEMP 97.4; O2SAT 99
[2016-11-24 16:00] VITALS: BP 138/72; PULSE 80; RESP 20; TEMP 97.7; O2SAT 97
[2016-11-24 20:00] VITALS: BP 159/74; PULSE 67; RESP 18; TEMP 97.7; O2SAT 94
--- NOTE | 2016-11-24 21:33 | HHI.PR ---
Subjective Remarks doing well no IM given ill dc to snf when bed available Objective Vital Signs Date Time Temp Pulse Resp B/P Pulse Ox O2 Delivery O2 Flow Rate FiO2 11/24/16 16:00 97.7 80 20 138/72 97 11/24/16 12:00 97.4 65 20 140/72 99 11/24/16 08:00 97.4 59 17 159/68 97 I/O 11/23/16 11/23/16 11/23/16 11/24/16 11/24/16 11/24/16 07:00 15:00 23:00 07:00 15:00 23:00 Intake Total 60 ml 240 ml 240 ml 600 ml Output Total 500 ml Balance 60 ml 240 ml 240 ml 100 ml Intake Oral 60 ml 240 ml 240 ml 600 ml Output Urine Total 500 ml # Voids 4 1 4 # Bowel Movements 1 1 1 0 Result Diagram: 11/24/16 0842 11/24/16 0842 Objective Remarks GENERAL: SKIN: Warm and dry. HEAD: Atraumatic. Normocephalic. EYES: Pupils equal and round. No scleral icterus. No injection or drainage. ENT: No nasal bleeding or discharge. Mucous membranes pink and moist. NECK: Trachea midline. No JVD. CARDIOVASCULAR: Regular rate and rhythm. RESPIRATORY: No accessory muscle use.. Breath sounds diminished GASTROINTESTINAL: Abdomen soft, non-tender, nondistended. Hepatic and splenic margins not palpable. MUSCULOSKELETAL: Extremities without clubbing, cyanosis, or edema. No obvious deformities. NEUROLOGICAL: Awake and alert. No obvious cranial nerve deficits. frail and weak Normal speech. PSYCHIATRIC: calm with seroquel but may be a bit sedated Current Medications Medications (Trade) Dose Ordered Sig/Marcie Route PRN Reason Start Time Stop Time Status Last Admin Dose Admin IV Flush (NS Flush) 2 ml UNSCH PRN FLUSH FLUSH AFTER USING IV ACCESS 11/11/16 21:45 IV Flush (NS Flush) 2 ml BID FLUSH 11/12/16 09:00 Naloxone HCl (Narcan Inj) 0.4 mg UNSCH PRN IV SEE LABEL COMMENTS 11/11/16 21:45 Vancomycin HCl (VANCOMYCIN for oral use only) 125 mg QID PO 11/12/16 09:00 11/15/16 16:52 Apixaban (Eliquis) 5 mg BID PO 11/12/16 21:00 11/15/16 08:38 Levothyroxine Sodium (Synthroid) 75 mcg DAILY@06 PO 11/13/16 06:00 11/15/16 05:17 Pantoprazole Sodium 20 mg 20 mg DAILY PO 11/13/16 09:00 11/15/16 08:38 Metronidazole 100 ml @ 100 mls/hr Q6H IV 11/12/16 16:00 11/15/16 16:51 Dextrose (D5W 1000 ml Inj) 1,000 ml @ 100 mls/hr Q10H IV 11/13/16 10:30 11/15/16 12:26 Lactobacillus Acidophilus (Lactinex) 1 tab TID PO 11/13/16 18:00 11/15/16 16:52 Memantine (Namenda) 5 mg DAILY PO 11/14/16 09:00 11/15/16 08:38 Medications and IVs Current Medications Medications (Trade) Dose Ordered Sig/Marcie Route PRN Reason Start Time Stop Time Status Last Admin Dose Admin IV Flush (NS Flush) 2 ml UNSCH PRN FLUSH FLUSH AFTER USING IV ACCESS 11/11/16 21:45 IV Flush (NS Flush) 2 ml BID FLUSH 11/12/16 09:00 11/23/16 21:27 Naloxone HCl (Narcan Inj) 0.4 mg UNSCH PRN IV SEE LABEL COMMENTS 11/11/16 21:45 Vancomycin HCl (VANCOMYCIN for oral use only) 125 mg QID PO 11/12/16 09:00 11/24/16 16:50 Apixaban (Eliquis) 5 mg BID PO 11/12/16 21:00 11/24/16 08:14 Levothyroxine Sodium (Synthroid) 75 mcg DAILY@06 PO 11/13/16 06:00 11/24/16 06:50 Pantoprazole Sodium 20 mg 20 mg DAILY PO 11/13/16 09:00 11/24/16 08:14 Dextrose (D5W 1000 ml Inj) 1,000 ml @ 100 mls/hr Q10H IV 11/13/16 10:30 11/20/16 12:49 Lactobacillus Acidophilus (Lactinex) 1 tab TID PO 11/13/16 18:00 11/24/16 16:50 Memantine (Namenda) 5 mg DAILY PO 11/14/16 09:00 11/24/16 08:14 Rivastigmine (Exelon 4.6 Mg Patch.24hr) 1 patch DAILY TD 11/19/16 14:00 11/24/16 08:15 Miscellaneous Information 1 DAILY T-DERMAL 11/20/16 09:00 11/24/16 08:15 Quetiapine Fumarate (SEROquel) 25 mg DAILY PO 11/24/16 09:00 11/24/16 08:14 Assessment and Plan Problem List: (1) C. difficile colitis Status: Acute (2) Dehydration Status: Resolved (3) Sepsis Status: Acute Assessment and Plan dehydration improved Cdiff stabilizing dementia 9stable anticipate dc to snf pneumoniae stable no cough no temp cxr unchanged Problem Qualifiers (1) Sepsis: Qualified Code: A41.9 - Sepsis, due to unspecified organism Petar Corado DO Nov 24, 2016 21:33
[2016-11-25] VITALS: BP 159/71; PULSE 67; RESP 18; TEMP 97.7; O2SAT 94
[2016-11-25] MEDS: DEXTROSE 5% IN WATE 1000ML INJ 1,000 ML IV SCH ×2 (02:30→07:58)
[2016-11-25] MEDS: LEVOTHYROXINE SODIUM 75 MCG TAB PO SCH (06:11)
[2016-11-25] MEDS: MEMANTINE HCL 5 MG TAB PO SCH (07:47)
[2016-11-25] MEDS: APIXABAN 5 MG TABLET PO SCH (07:47)
[2016-11-25] MEDS: VANCOMYCIN 500 MG VIAL (FOR ORAL USE ONLY) PO SCH (07:48)
[2016-11-25] MEDS: QUEtiapine FUMARATE 25 MG TAB PO SCH (07:48)
[2016-11-25] MEDS: RIVASTIGMINE 4.6 MG/24 HOUR PATCH TD SCH (07:48)
[2016-11-25] MEDS: LACTOBACILLUS ACIDOPHILUS TAB PO SCH (07:48)
[2016-11-25] MEDS: PANTOPRAZOLE SOD 20 MG DELAYED RELEASE TAB PO SCH (07:48)
[2016-11-25] MEDS: REMOVE OLD PATCH T-DERMAL SCH (07:55)
[2016-11-25] MEDS: SODIUM CHLORIDE 0.9% FLUSH 5 ML FLUSH FLUSH SCH (07:56)
[2016-11-25 08:00] VITALS: BP 132/76; PULSE 85; RESP 17; TEMP 97.5; O2SAT 100
--- NOTE | 2016-11-25 09:53 | HHI.DS ---
Discharge Summary Admission Date Nov 11, 2016 at 21:12 Admitting Diagnosis leukocytosis; bandemia; dehydration (1) C. difficile colitis Diagnosis: Principal CBC/BMP: 11/24/16 0842 11/24/16 0842 Significant Findings Laboratory Tests Test 11/22/16 11/24/16 22:38 08:42 Chloride Level 108 MEQ/L 109 MEQ/L (98-107) (98-107) Calcium Level 8.1 MG/DL (8.5-10.1) Aspartate Amino Transf 41 U/L (15-37) (AST/SGOT) Alkaline Phosphatase 147 U/L (45-117) Total Protein 4.6 GM/DL (6.4-8.2) Albumin 2.1 GM/DL (3.4-5.0) White Blood Count 3.4 TH/MM3 (4.0-11.0) Hemoglobin 11.9 GM/DL (13.0-17.0) Hematocrit 37.2 % (39.0-51.0) Mean Corpuscular Hemoglobin 26.2 PG (27.0-34.0) Red Cell Distribution Width 18.7 % (11.6-17.2) Neutrophils (%) (Auto) 70.5 % (16.0-70.0) Monocytes (%) (Auto) 13.3 % (0.0-8.0) Eosinophils (%) (Auto) 5.0 % (0.0-4.0) Lymphocytes # (Auto) 0.3 TH/MM3 (1.0-4.8) Estimat Glomerular Filtration 72 ML/MIN (>89) Rate Transfer Summary 86 year old male with history of CAD, pacemaker placement, AAA status post repair in March 2016, dementia, lymphoma first diagnosed 14-15 years ago, acid reflux, hypothyroid disorder, left foot drop, osteoarthritis,and of skin cancer presents to the ED for evaluation from rehab. Patient is followed by Dr. Corado at [facility]. Patient has been have increased agitation over the past 2 weeks. He has gradually become more lethargic and is now dehydrated and Rehab was unable to administer IV fluids. He appears weak and is very soft spoken; difficult to hear and understand. He had a previous admission 2015-10/30/2016 for sepsis. MSSA+ blood cultures. Blood cultures are thus far negative. UA appears positive for UTI. He was followed by ID, psych, and neuro during his stay. He was also diagnosed with C Diff during his stay and was treated with vancomycin with a stop date of the . Over the course of his hospitalization he had agitation and his medication has been altered. He is being discharged on Exelon patch and Seroquel for dementia. He was discharged 11/21, however not accepted by the facility because he had required a dose of Haldol in the prior 24 hours. He was again discharged 11/24 but [facility] requested that the discharge be held until today. Per my d/w RN and CM, patient will be discharged to [facility] today and has been accepted by the facility. Pt Condition on Discharge: Stable Discharge Disposition: Discharge to SNF Discharge Instructions DIET: Follow Instructions for: Pureed (Wired Jaw) Speech Therapy-Diet Recommenda: Pureed Activities you can perform: Full Weight Bearing, Shower/Bath Vinita Mustafa Nov 25, 2016 09:53
[2016-11-26] MEDS ORDERED: CITRSOL4 PO (12:07)
[2016-11-26] MEDS ORDERED: OMEG100037 PO (12:07)
[2016-11-26] MEDS ORDERED: MILKSUS PO (12:07)
[2016-11-26] MEDS ORDERED: DULC10SU3 RECTAL (12:07)
[2016-11-26] MEDS ORDERED: VANC125C3 PO (12:07)
[2016-11-26] MEDS ORDERED: ENEMENE5 PR (12:07)
[2016-11-26] MEDS ORDERED: TYLE650T9 PO (12:07)
[2016-11-26] MEDS ORDERED: TRAZ50TA12 PO (12:07)
== END 2016-11-25 11:24 | DRG 641 ==
LOC: NEPC 16:28 → NEDA 21:12 → NEDH 11-12 01:12 → N07A 11-12 15:52
PROVIDERS: ADMIT Family Medicine; ATTEND Family Medicine
DX: E86.0 Dehydration (principal); E87.0 Hyperosmolality and hypernatremia; F03.91 Unspecified dementia, unspecified severity, with behavioral disturbance; R78.81 Bacteremia; B96.1 Klebsiella pneumoniae [K. pneumoniae] as the cause of diseases classified elsewhere; N39.0 Urinary tract infection, site not specified; E87.6 Hypokalemia; E03.9 Hypothyroidism, unspecified; M21.372 Foot drop, left foot; I10 Essential (primary) hypertension; R45.1 Restlessness and agitation; E78.00 Pure hypercholesterolemia, unspecified; I25.2 Old myocardial infarction; I25.10 Atherosclerotic heart disease of native coronary artery without angina pectoris; M19.90 Unspecified osteoarthritis, unspecified site; Z96.653 Presence of artificial knee joint, bilateral; K21.9 Gastro-esophageal reflux disease without esophagitis; Z95.0 Presence of cardiac pacemaker; Z96.643 Presence of artificial hip joint, bilateral; Z87.891 Personal history of nicotine dependence; Z85.72 Personal history of non-Hodgkin lymphomas; Z86.79 Personal history of other diseases of the circulatory system
CPT/HCPCS: 71010; 71020; 80048; 80053; 81001; 82140; 82550; 82607; 83605; 83735; 84100; 84132; 84443; 84484; 85007; 85025; 85027; 87040; 87077; 87086; 87186; 87493; 93005; 94640; 94664; 96365; J0696; J1630; J3370; J3475; J3480; J7030; J7040; J7050; J7070

== ENCOUNTER 2016-11-26 11:25 | Observation (INO) | payer MEDICARE ==
[~2016-11-26] VITALS: Ht 165.1 cm; Wt 59.7 kg
[~2016-11-26 11:25] MED LIST changes: -AMLO2.5T PO; -AMLO5 PO; -CITA10TA4 PO; +D31000CA PO; -FERR325T PO; +LACT PO; -METO25TA6 PO; +NAME5TAB2 PO; +QUET1TAB7 PO; +RIVA4.6T TD; +TRAZ50TA12 PO; +VANC500I3 PO
[2016-11-26 11:46] VITALS: BP 101/59; PULSE 69; RESP 15; TEMP 97.5; O2SAT 98
[2016-11-26 11:50] VITALS: BP 101/59; PULSE 69; RESP 15; TEMP 97.5; O2SAT 98
[2016-11-26] MEDS ORDERED: OMEG100037 PO (12:07)
[2016-11-26] MEDS ORDERED: CITRSOL4 PO (12:07)
[2016-11-26] MEDS ORDERED: TYLE650T9 PO (12:07)
[2016-11-26] MEDS ORDERED: DULC10SU3 RECTAL (12:07)
[2016-11-26] MEDS ORDERED: TRAZ50TA12 PO (12:07)
[2016-11-26] MEDS ORDERED: VANC125C3 PO (12:07)
[2016-11-26] MEDS ORDERED: ENEMENE5 PR (12:07)
[2016-11-26] MEDS ORDERED: MILKSUS PO (12:07)
--- NOTE | 2016-11-26 12:36 | PD ---
HPI Chief Complaint: Fall Time Seen by Provider: 12:32 Travel History International Travel<30 days: No Contact w/Intl Traveler<30days: No Traveled to known affect area: No History of Present Illness HPI 86-year-old male to presents to the ED for evaluation of fall or rehabilitation facility. Patient had a fall today. Fall was not witnessed. Patient does not remember the fall but she is not a good historian secondary to dementia. Patient seems to be alert only to self but not to place or time. Patient complains of on the pain to the legs especially left hip. Again fall was not witnessed. Patient does have abrasions to the forehead which appear to be old. Patient denies any arm pain. No ankle pain. No knee pain. Patient denies any abdominal pain. No chest pain or shortness of breath. Has no allergies to medication. Has not taken anything for this. Patient was just discharged yesterday from admission from dehydration from a nursing facility where his been staying for a while now. No obvious blood thinner use. Pain per patient' s 5 out of 10. Per report from half-way patient apparently is also very altered. Per old medical records patient was altered during his admission when he was deemed to be cleared for discharge. PFSH Past Medical History Hx Anticoagulant Therapy: Yes (ELIQUIS) Arthritis: Yes Autoimmune Disease: No Blood Disorders: No Cancer: Yes (NON HODGEKINS LYMPHOMA) Cardiovascular Problems: Yes (PACER) High Cholesterol: Yes Chemotherapy: Yes (11-02-03 TO 06-02-04) Diminished Hearing: No Endocrine: No Gastrointestinal Disorders: Yes GERD: Yes Genitourinary: Yes Hiatal Hernia: Yes Hypertension: Yes Musculoskeletal: Yes Neurologic: No Psychiatric: No Reproductive: No Respiratory: Yes (SINUS) Myocardial Infarction: Yes Radiation Therapy: Yes (2003) Thyroid Disease: Yes Past Surgical History Cardiac Surgery: Yes (PACEMAKER PLACEMENT) Genitourinary Surgery: Yes Joint Replacement: Yes (BILAT HIP/BILAT KNEE) Pacemaker: Yes ([employer] 01/04/2015 REF#[id number] LOT#[id number]) Other Surgery: Yes (THROAT BX) Social History Alcohol Use: Yes (OCCASIONALLY) Tobacco Use: No (HX OF 1/2 PPD 25 YEARS AGO) Substance Use: No Allergies-Medications (Allergen,Severity, Reaction): Coded Allergies: No Known Allergies (Verified , 11/26/16) Reported Meds & Prescriptions Reported Meds & Active Scripts Active Acidophilus/l-Sporogenes (Lactobacillus Acidophilus) 1 Tab Tab 1 Tab PO TID Exelon Patch (Rivastigmine) 4.6 mg/24 hr Patch 1 Patch TD DAILY Quetiapine (Quetiapine Fumarate) 25 Mg Tab 25 Mg PO BID@09,12 Namenda (Memantine) 5 Mg Tab 5 Mg PO DAILY Reported Vancomycin (Vancomycin HCl) 125 Mg Cap 125 Mg PO QID Trazodone (Trazodone HCl) 50 Mg Tab 50 Mg PO HS Milk of Magnesia Liq (Magnesium Hydroxide) 400 Mg/5 Ml Susp 30 Ml PO HS PRN Enema Disposable (Sodium Phosphates) 1 Rika Rika 1 Applic NE DIRECTED PRN Dulcolax Supp (Bisacodyl) 10 Mg Supp 10 Mg RECTAL IN AM PRN Citroma Liq (Magnesium Citrate) 300 Ml Liq 300 Ml PO IN AM PRN Tylenol 8 Hour Arthritis (Acetaminophen) 650 Mg Tab 650 Mg PO Q4HR PRN Fish Oil 1000 mg ([place]-3 Fatty Acids) 1 Cap Cap 1,000 Mg PO DAILY D3 (Cholecalciferol) 1,000 Unit Cap 1,000 Units PO DAILY Zocor (Simvastatin) 80 Mg Tab 80 Mg PO DAILY Eliquis (Apixaban) 5 Mg Tab 5 Mg PO BID Levothyroxine (Levothyroxine Sodium) 75 Mcg Tab 75 Mcg PO DAILY Protonix (Pantoprazole Sodium) 20 Mg Tab 20 Mg PO DAILY Review of Systems Except as stated in HPI: all other systems reviewed are Neg Physical Exam Narrative GENERAL: SKIN: Warm and dry. HEAD: Atraumatic. Normocephalic. EYES: Pupils equal and round 4 mm reactive to light and accommodation. No scleral icterus. No injection or drainage. ENT: No nasal bleeding or discharge. Mucous membranes pink and moist. Tongue is midline. No uvula deviation. NECK: Trachea midline. No JVD. CARDIOVASCULAR: Regular rate and rhythm. RESPIRATORY: No accessory muscle use. Clear to auscultation. Breath sounds equal bilaterally. GASTROINTESTINAL: Abdomen soft, non-tender, nondistended. Hepatic and splenic margins not palpable. MUSCULOSKELETAL: Extremities without clubbing, cyanosis, or edema. No obvious deformities. Full range of motion of the upper and lower extremities bilaterally. Patient does have pain with range of motion of the left hip and with touch in the left lateral hip. 2+ pulses bilaterally. No ankle pain. No knee pain. Full range of motion of the upper extremities with no pain at all. 2+ pulses bilaterally in the upper and lower extremities bilaterally. Patient does have abrasions to the head which appear to be old and already healing. No obvious cervical, thoracic, lumbar spine tenderness to palpation. Patient does have multiple arthritic changes to the hands and feet. NEUROLOGICAL: Awake and alert and oriented only to person. No obvious cranial nerve deficits. Motor grossly within normal limits. Five out of 5 muscle strength in the arms and legs. Normal speech. PSYCHIATRIC: Demented mood and affect; insight and judgment questionable secondary to dementia Data Data Last Documented VS Vital Signs Date Time Temp Pulse Resp B/P Pulse Ox O2 Delivery O2 Flow Rate FiO2 11/26/16 11:50 97.5 69 15 101/59 98 Room Air Orders Electrocardiogram (11/26/16 11:56) Complete Blood Count With Diff (11/26/16 11:56) Basic Metabolic Panel (Bmp) (11/26/16 11:56) Ckmb (Isoenzyme) Profile (11/26/16 11:56) Troponin I (11/26/16 11:56) Prothrombin Time / Inr (Pt) (11/26/16 11:56) Act Partial Throm Time (Ptt) (11/26/16 11:56) Urinalysis - C+S If Indicated (11/26/16 11:56) Magnesium (Mg) (11/26/16 11:56) Chest, Single Ap (11/26/16 11:56) Ct Brain W/O Iv Contrast(Rout) (11/26/16 11:56) Pelvis, Ap Only (Routine) (11/26/16 11:56) Ecg Monitoring (11/26/16 11:56) Oximetry (11/26/16 11:56) Vital Signs (11/26/16 11:56) Ct Cerv Spine W/O Contrast (11/26/16 ) Femur (Ap & Lat/2vws) (11/26/16 ) Acetaminophen (Tylenol) (11/26/16 13:30) CKMB (11/26/16 12:50) CKMB% (11/26/16 12:50) Sodium Chlor 0.9% 1000 Ml Inj (Ns 1000 M (11/26/16 13:26) Restraints Violent (11/26/16 13:58) Urine Culture (11/26/16 14:10) Labs Laboratory Tests Test 11/26/16 11/26/16 12:50 14:10 White Blood Count 4.1 TH/MM3 Red Blood Count 4.04 MIL/MM3 Hemoglobin 10.6 GM/DL Hematocrit 33.7 % Mean Corpuscular Volume 83.3 FL Mean Corpuscular Hemoglobin 26.3 PG Mean Corpuscular Hemoglobin 31.6 % Concent Red Cell Distribution Width 18.5 % Platelet Count 163 TH/MM3 Mean Platelet Volume 7.9 FL Neutrophils (%) (Auto) 72.0 % Lymphocytes (%) (Auto) 7.3 % Monocytes (%) (Auto) 19.5 % Eosinophils (%) (Auto) 0.4 % Basophils (%) (Auto) 0.8 % Neutrophils # (Auto) 2.9 TH/MM3 Lymphocytes # (Auto) 0.3 TH/MM3 Monocytes # (Auto) 0.8 TH/MM3 Eosinophils # (Auto) 0.0 TH/MM3 Basophils # (Auto) 0.0 TH/MM3 CBC Comment DIFF FINAL Differential Comment Prothrombin Time 12.3 SEC Prothromb Time International 1.1 RATIO Ratio Activated Partial 27.1 SEC Thromboplast Time Sodium Level 140 MEQ/L Potassium Level 4.5 MEQ/L Chloride Level 105 MEQ/L Carbon Dioxide Level 24.3 MEQ/L Anion Gap 11 MEQ/L Blood Urea Nitrogen 14 MG/DL Creatinine 1.61 MG/DL Estimat Glomerular Filtration 41 ML/MIN Rate Random Glucose 142 MG/DL Calcium Level 8.7 MG/DL Magnesium Level 1.6 MG/DL Total Creatine Kinase 158 U/L Creatine Kinase MB 3.8 NG/ML Troponin I 0.04 NG/ML Urine Color YELLOW Urine Turbidity CLEAR Urine pH 6.0 Urine Specific [place] 1.010 Urine Protein NEG mg/dL Urine Glucose (UA) NEG mg/dL Urine Ketones NEG mg/dL Urine Occult Blood MOD Urine Nitrite NEG Urine Bilirubin NEG Urine Urobilinogen LESS THAN 2.0 MG/DL Urine Leukocyte Esterase NEG Urine RBC 70 /hpf Urine WBC 12 /hpf Urine Squamous Epithelial <1 /hpf Cells Urine Hyaline Casts 1 /lpf Microscopic Urinalysis Comment CULTURE INDICATED MDM Medical Decision Making Medical Screen Exam Complete: Yes Emergency Medical Condition: Yes Medical Record Reviewed: Yes Interpretation(s) CBC & BMP Diagram 11/26/16 12:50 Last Impressions Pelvis X-Ray 11/26/16 1156 Signed Impressions: Service Date/Time: Saturday, November 26, 2016 12:34 - CONCLUSION: No acute bony abnormality Joe Currie MD Head CT 11/26/16 1156 Signed Impressions: Service Date/Time: Saturday, November 26, 2016 12:55 - CONCLUSION: Stable CT brain scan with atrophy and microvascular ischemic demyelinization. No acute intracranial abnormality Joe Currie MD Chest X-Ray 11/26/16 1156 Signed Impressions: Service Date/Time: Saturday, November 26, 2016 12:44 - CONCLUSION: No acute disease. Joe Currie MD Femur X-Ray 11/26/16 0000 Signed Impressions: Service Date/Time: Saturday, November 26, 2016 12:36 - CONCLUSION: Negative for fracture. Mark Burden MD FACR Cervical Spine CT 11/26/16 0000 Signed Impressions: Service Date/Time: Saturday, November 26, 2016 12:55 - CONCLUSION: Stable degenerative findings of the cervical spine as described above. No acute bony abnormality Joe Currie MD UA showed some blood and WBCs EKG shows sinus rhythm with a sign of acute ischemia arrhythmia. Troponin and CK-MB negative. Differential Diagnosis Fall versus fracture versus syncopal episode versus dementia versus altered mental status Narrative Course 86-year-old male that presents to the ED for evaluation of fall. Patient was properly examined and was found to have signs and symptoms consistent with appears to be signs and symptoms consistent with fall. Unclear if this is syncopal as nobody witnessed the fall. I had my ED nurse called the facility to see if anybody had witnessed the fall but apparently no one did. Because of this syncopal workup will be done as well as x-rays. Labs and imaging showed slightly elevated creatinine and BUN as well as some RBCs in the urine but likely secondary to catheter placement. Case was discussed in my attending Dr. Lu who evaluated the patient and evaluate all findings and recommends discharge back to half-way. Patient will be discharged back to his half-way. Patient was told to take, Motrin for pain. All discharged instructions were written. Follow with PCP. See ED for any worsening symptoms. At 1530 and was notified by nurses that apparently half-way will not take back the patient. manager packaging was contacted. Patient apparently has been more alter per facility and will not take him because of his operation and his aggressive behavior towards staff. Patient was recently diagnosed with C. difficile any urinary tract infection with sepsis. On labs here patient has been stable but patient does appear to be somewhat altered. Case was discussed with my attending Dr. Lu who was made aware of all findings as well as facility refusal to take back the patient and recommends admission to medicine. Patient was admitted to Dr. Hung who is the patient's PCP at the facility. 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
[2016-11-26 13:02] LABS: AUTOMATED NEUTROPHIL # 2.9 TH/MM3 (1.8-7.7); BASOPHIL % 0.8 % (0.0-2.0); EOSINOPHIL % 0.4 % (0.0-4.0); HEMATOCRIT 33.7 % (39.0-51.0); HEMO FLAGS DIFF FINAL; LYMPH % 7.3 % (9.0-44.0); LYMPHOCYTE # 0.3 TH/MM3 (1.0-4.8); MEAN CELL VOLUME 83.3 FL (80.0-100.0); MEAN CORPUSCULAR HEMOGLOBIN 26.3 PG (27.0-34.0); MEAN CORPUSCULAR HGB CONC 31.6 % (32.0-36.0); MONO % 19.5 % (0.0-8.0); PLATELET COUNT 163 TH/MM3 (150-450); RED BLOOD COUNT 4.04 MIL/MM3 (4.50-5.90); RED CELL DISTRIBUTION WIDTH 18.5 % (11.6-17.2); WHITE BLOOD COUNT 4.1 TH/MM3 (4.0-11.0)
[2016-11-26 13:09] LABS: APTT (PATIENT) 27.1 SEC (24.3-30.1); INTERNATIONAL NORMALIZED RATIO 1.1 RATIO; PROTHROMBIN TIME - PATIENT 12.3 SEC (9.8-11.6)
--- NOTE | 2016-11-26 13:16 | RADRPT ---
EXAM DATE/TIME: 11/26/2016 12:55 [facility] COMPARISON: CT BRAIN W/O CONTRAST, October 21, 2016, 21:35. INDICATIONS : Fall. Head and neck pain. RADIATION DOSE: 33.85 CTDIvol (mGy) MEDICAL HISTORY : Hypertension. Lymphoma. Cardiovascular disease SURGICAL HISTORY : None. ENCOUNTER: Initial ACUITY: 1 day PAIN SCALE: 5/10 LOCATION: cranial TECHNIQUE: Multiple contiguous axial images were obtained of the head. Using automated exposure control and adjustment of the mA and/or kV according to patient size, radiation dose was kept as low as reasonably achievable to obtain optimal diagnostic quality images. FINDINGS: Age-appropriate atrophy is appreciated with chronic microvascular ischemic demy elinization in deep white matter and vascular calcifications of the internal carotid siphon. There is no intracranial hemorrhage or extracerebral defect mass or mass.. CONCLUSION: Stable CT brain scan with atrophy and microvascular ischemic demyelinization. No acut e intracranial abnormality Joe Currie MD on November 26, 2016 at 13:13 Board Certified Radiologist. This report was verified electronically.
[2016-11-26 13:18] LABS: ANION GAP 11 MEQ/L (5-15); BICARBONATE 24.3 MEQ/L (21.0-32.0); BLOOD UREA NITROGEN 14 MG/DL (7-18); CHLORIDE 105 MEQ/L (98-107); GLOMERULAR FILTRATION RATE 41 ML/MIN (>89); MAGNESIUM 1.6 MG/DL (1.5-2.5); POTASSIUM 4.5 MEQ/L (3.5-5.1); SODIUM (NA) 140 MEQ/L (136-145)
--- NOTE | 2016-11-26 13:21 | RADRPT ---
EXAM DATE/TIME: 11/26/2016 12:44 [facility] COMPARISON: CHEST PA & LAT, November 22, 2016, 15:23. INDICATIONS : Shortness of breath. MEDICAL HISTORY : None. SURGICAL HISTORY : Pacemaker. ENCOUNTER: Initial ACUITY: 2 days PAIN SCORE: 0/10 LOCATION: Bilateral chest FINDINGS: And noted bipolar pacemaker AICD device overlying left hemithorax with atherosclerotic changes of aor ta and borderline left ventricular cardiomegaly which is compensated. Lung brown are now clear. CONCLUSION: No acute disease. Joe Currie MD on November 26, 2016 at 13:19 Board Certified Radiologist. This report was verified electronically.
[2016-11-26 13:23] LABS: CREATINE KINASE 158 U/L (39-308)
--- NOTE | 2016-11-26 13:25 | RADRPT ---
EXAM DATE/TIME: 11/26/2016 12:36 [facility] COMPARISON: No previous studies available for comparison. INDICATIONS : Left femur pain, fall. MEDICAL HISTORY : None. SURGICAL HISTORY : Total knee replacement, left. Left total hip replacement ENCOUNTER: Initial ACUITY: 1 day PAIN SCORE: 5/10 LOCATION: Left femur FINDINGS: Total hip is in good position. Total knee is in good position. There is no fracture. Moderate vasc ular callus cases are evident. CONCLUSION: Negative for fracture. Mark Burden MD FACR on November 26, 2016 at 13:23 Board Certified Radiologist. This report was verified electronically.
[2016-11-26] MEDS ORDERED: SODIUM CHLOR 0.9% 1000 ML INJ 1,000 ML IV SCH (13:26)
[2016-11-26] MEDS ORDERED: ACETAMINOPHEN 325 MG TAB PO ONE (13:30)
[2016-11-26 13:35] LABS: CKMB 3.8 NG/ML (0.5-3.6)
--- NOTE | 2016-11-26 13:49 | RADRPT ---
EXAM DATE/TIME: 11/26/2016 12:34 [facility] COMPARISON: PELVIS AP ONLY, November 03, 2016, 6:27. INDICATIONS : Pelvic pain, fall. MEDICAL HISTORY : None. SURGICAL HISTORY : Bilateral total hip replacements ENCOUNTER: Initial ACUITY: 1 day PAIN SCORE: 6/10 LOCATION: Left hip FINDINGS: Bony structures are osteopenic. Bilateral total hip prosthesis in place well-seated with surgical sta ples in the pelvic basin and vascular stent in the distal aorta and iliac arteries. No acute bony inj ury or dislocation. CONCLUSION: No acute bony abnormality Joe Currie MD on November 26, 2016 at 13:46 Board Certified Radiologist. This report was verified electronically.
--- NOTE | 2016-11-26 14:15 | RADRPT ---
EXAM DATE/TIME: 11/26/2016 12:55 [facility] COMPARISON: CT CERVICAL SPINE W/O CONTRAST, November 03, 2016, 6:30. INDICATIONS : Fall. Head and neck pain. RADIATION DOSE: 21.06 CTDIvol (mGy) MEDICAL HISTORY : Hypertension. Lymphoma. Cardiovascular disease SURGICAL HISTORY : None. ENCOUNTER: Initial ACUITY: 1 day PAIN SCALE: 5/10 LOCATION: neck TECHNIQUE: Volumetric scanning of the cervical spine was performed. Multiplanar reconstructions in the sagittal, coronal and oblique axial planes were performed. Using automated exposure control and adjustment o f the mA and/or kV according to patient size, radiation dose was kept as low as reasonably achievable to obtain optimal diagnostic quality images. FINDINGS: Relative to the prior CT scan of 03 November 2016 there is no interval change. Bony structures are meredith neralized and intact with no fracture, compression, or destructive change and the odontoid has a norm al relationship the arch of C1. Ultrasound level degenerative disc disease is noted particularly C4-5 and C5-6 narrowing and multilevel posterior lateral mass facet arthritic change. Stable 4 mm anterol isthesis of C4 on C5 is unchanged. Extensive atherosclerotic vascular calcifications are appreciated. CONCLUSION: Stable degenerative findings of the cervical spine as described above. No acute bony abnormality Joe Currie MD on November 26, 2016 at 14:10 Board Certified Radiologist. This report was verified electronically.
[2016-11-26 14:30] LABS: BLOOD, URINE MOD (NEG); COMMENT (UR) CULTURE INDICATED; CULTURE IF INDICATED CULTURE INDICATED; GLUCOSE,URINE NEG (NEG); HYALINE CAST, URINE 1 /lpf (RARE); KETONE, URINE NEG (NEG); NITRITE,URINE NEG (NEG); SQUAMOUS EPITHELIAL CELL URINE <1 /hpf (0-5); URINE COLOR YELLOW (YELLW/STRAW)
--- NOTE | 2016-11-26 17:25 | MB ---
cc: PIPER ARAGON M.D. DATE OF CONSULTATION: 11/26/2016 DATE OF : 1930, 86 REASON FOR CONSULTATION Dementia with agitation. HISTORY OF PRESENT ILLNESS: The patient is an 86-year-old man. History is taken solely from the chart. He apparently lives in [facility], had a fall, was sent here to rule out possible fractures. He has a known history of Alzheimer's dementia. He will not tell me if anything hurts. He is mumbling about trying to climb down windows and chimneys and go through a door. I do not know what that is referencing. He is not oriented. Apparently he was discharged yesterday with admission for dehydration to a fdc facility. Per chart notes, he has a history of being on anticoagulation, Eliquis, arthritis, non-Hodgkin's lymphoma, pacemaker, hyperlipidemia, reflux. PAST SURGICAL HISTORY: 1. Pacemaker. 2. Bilateral hip and knee surgery. 3. Throat biopsy. 4. History of alcohol, occasionally per chart. 5. Smoker of half-pack per day for 25 years, not currently. No other substances. ALLERGIES: None reported. MEDICATIONS: In the fdc. 1. Exelon patch. 2. Quetipine. 3. Namenda 4. Vancomycin 5. Trazodone 6. Enema. 7. Dulcolax. 8. Tylenol 9. Fish oil. 10. D3. 11. Eliquis. 12. Levothyroxine for hypothyroidism. 13. Protonix. PHYSICAL EXAMINATION: VITAL SIGNS: Temperature 97.5, pulse 69, respiratory rate 15, blood pressure 109/59. NECK: Supple. No bruits. HEART: Regular. I could see the pacemaker, left anterior chest. He is awake, alert. Follows simple commands as far as moving his arms and legs but is in restraints. Pupils reactive. Face symmetrical. Speech is fluent but non-sensical. Toes are downgoing. Reflexes are 1 to 2+. Cerebellar cannot be assessed. LABORATORY DATA: Reviewed. Hemoglobin is 10.6, platelets are 163,000, white count 4.1,. Chemistry: BUN 41, creatinine 1.61, GFR 42, glucose 142, coag panel, PT is 12.3, urine WBC 12, urine RBC 70, cultures pending. Currently he was here and discharged on the with admitting diagnosis of leukocytosis and bandemia. IMPRESSION: The patient is an 86 year-old man with known history of dementia. As far as his dementia meds at this point, I do not believe that they will help him in any way. Would recommend increasing his Seroquel if possible 50 milligrams b.i.d. I know psychiatry will be seeing him, also will defer to their expertise. He will probably need special placement into a nursing facility where they have a dementia johnson and can accommodate this type of patient. He was seen by neurology back in November. He was started then on Namenda. B12, thyroid were fine. They recommended getting him out of bed all day so he can sleep at night. If he gets severely agitated, I would recommend at that point probably Haldol. Continue current recommendations. Defer other medication regimen to psychiatry. Case management needs to assist with placement, likely with this gentleman. MD JENNIFER Demarco/RAJANI /4:30 PM /5:13 PM
[2016-11-26] MEDS ORDERED: NALOXONE HCL 0.4 MG/ML AMP IV PRN (18:15)
[2016-11-26] MEDS ORDERED: SODIUM CHLORIDE 0.9% FLUSH 5 ML FLUSH FLUSH PRN (18:15)
[2016-11-26 19:17] VITALS: BP 159/72; PULSE 60; RESP 18; O2SAT 97
[2016-11-26] MEDS: TEMAZEPAM 15 MG CAP PO PRN (20:10)
[2016-11-26] MEDS: SODIUM CHLORIDE 0.9% FLUSH 5 ML FLUSH FLUSH SCH (22:53)
[2016-11-27 00:59] VITALS: BP 163/70; PULSE 88; RESP 18; TEMP 95.9; O2SAT 90
[2016-11-27] MEDS: QUEtiapine FUMARATE 25 MG TAB PO SCH ×4 (02:46→18:09)
[2016-11-27 04:49] LABS: EOSINOPHIL # 0.1 TH/MM3 (0-0.4); EOSINOPHIL % 2.1 % (0.0-4.0); HEMATOCRIT 27.9 % (39.0-51.0); HEMO FLAGS DIFF FINAL; LYMPH % 8.8 % (9.0-44.0); LYMPHOCYTE # 0.3 TH/MM3 (1.0-4.8); MEAN CELL VOLUME 82.1 FL (80.0-100.0); MEAN CORPUSCULAR HEMOGLOBIN 26.6 PG (27.0-34.0); MEAN CORPUSCULAR HGB CONC 32.3 % (32.0-36.0); MONO % 22.5 % (0.0-8.0); NEUT % 65.6 % (16.0-70.0); PLATELET COUNT 110 TH/MM3 (150-450); RED CELL DISTRIBUTION WIDTH 18.6 % (11.6-17.2); WHITE BLOOD COUNT 3.1 TH/MM3 (4.0-11.0)
[2016-11-27 05:09] LABS: ALT (GPT) 23 U/L (12-78); ANION GAP 9 MEQ/L (5-15); AST (GOT) 23 U/L (15-37); BICARBONATE 24.3 MEQ/L (21.0-32.0); BLOOD UREA NITROGEN 17 MG/DL (7-18); CHLORIDE 110 MEQ/L (98-107); GLOMERULAR FILTRATION RATE 53 ML/MIN (>89); POTASSIUM 3.9 MEQ/L (3.5-5.1); SODIUM (NA) 143 MEQ/L (136-145)
[2016-11-27 05:11] LABS: ALKALINE PHOSPHATASE 127 U/L (45-117); TOTAL BILIRUBIN ADULT 0.7 MG/DL (0.2-1.0)
[2016-11-27 08:00] VITALS: BP 176/81; PULSE 60; RESP 20; TEMP 95.9; O2SAT 90
[2016-11-27] MEDS: SODIUM CHLORIDE 0.9% FLUSH 5 ML FLUSH FLUSH SCH ×2 (09:00→21:53)
[2016-11-27 12:00] VITALS: BP 145/81
--- NOTE | 2016-11-27 12:59 | HHI.HP ---
History of Present Illness Service Primary Care Primary Care Physician Petar Corado D.O. Admission Diagnosis altered mental status, dementia, inability to take for self Diagnoses: (1) Dementia with behavioral disturbance Diagnosis: Principal (2) Altered mental status Diagnosis: Secondary (3) Failure to thrive in adult Diagnosis: Principal (4) OA (osteoarthritis) Diagnosis: Secondary (5) Adult hypothyroidism Diagnosis: Secondary Review of Systems ROS Limitations: Clinical Condition, Altered Mental Status, Poor Historian Past Family Social History Allergies: Coded Allergies: No Known Allergies (Verified , 11/26/16) Past Medical History Dementia with Agitation Hypothyroidism CAD s/p AK with Stent to LAD, patent per cath 02/13 Ischemic cardiomyopathy EF 55-60% 2015 GERD Neck radiation Non-Hodgkins lymphoma OA R Shoulder pain Skin cancer - face Hypertension Hyperlipidemia Deformed L ankle with foot drop Prostate Cancer Complete Heart Block with Medtronic PPM Hiatal Hernia Atrial fibrillation on Eliquis Past Surgical History Left heart catheterization 02/13 Lymph node biopsy AAA repair 03/17 Galen knee replacements Galen hip replacements Cervical surgery for fx rpr s/p fall Total prostatectomy PPM implantation Reported Medications Reported Meds & Active Scripts Active Acidophilus/l-Sporogenes (Lactobacillus Acidophilus) 1 Tab Tab 1 Tab PO TID Exelon Patch (Rivastigmine) 4.6 mg/24 hr Patch 1 Patch TD DAILY Quetiapine (Quetiapine Fumarate) 25 Mg Tab 25 Mg PO BID@09,12 Namenda (Memantine) 5 Mg Tab 5 Mg PO DAILY Reported Vancomycin (Vancomycin HCl) 125 Mg Cap 125 Mg PO QID Trazodone (Trazodone HCl) 50 Mg Tab 50 Mg PO HS Milk of Magnesia Liq (Magnesium Hydroxide) 400 Mg/5 Ml Susp 30 Ml PO HS PRN Enema Disposable (Sodium Phosphates) 1 Rika Rika 1 Applic [place] DIRECTED PRN Dulcolax Supp (Bisacodyl) 10 Mg Supp 10 Mg RECTAL IN AM PRN Citroma Liq (Magnesium Citrate) 300 Ml Liq 300 Ml PO IN AM PRN Tylenol 8 Hour Arthritis (Acetaminophen) 650 Mg Tab 650 Mg PO Q4HR PRN Fish Oil 1000 mg ([place]-3 Fatty Acids) 1 Cap Cap 1,000 Mg PO DAILY D3 (Cholecalciferol) 1,000 Unit Cap 1,000 Units PO DAILY Zocor (Simvastatin) 80 Mg Tab 80 Mg PO DAILY Eliquis (Apixaban) 5 Mg Tab 5 Mg PO BID Levothyroxine (Levothyroxine Sodium) 75 Mcg Tab 75 Mcg PO DAILY Protonix (Pantoprazole Sodium) 20 Mg Tab 20 Mg PO DAILY Active Ordered Medications Current Medications Medications (Trade) Dose Ordered Sig/Marcie Route Start Time Stop Time Status Last Admin (NS Flush) 2 ml UNSCH PRN FLUSH 11/26/16 18:15 (NS Flush) 2 ml BID FLUSH 11/26/16 21:00 11/27/16 09:00 (Restoril) 15 mg HS PRN PO 11/26/16 18:15 11/26/16 20:10 (Narcan Inj) 0.4 mg UNSCH PRN IV 11/26/16 18:15 (SEROquel) 50 mg TID PO 11/27/16 01:51 11/27/16 09:12 Family History Positive for breast and lung cancer Social History History of tobacco abuse, only social ETOH use in past. Physical Exam Vital Signs Vital Signs Date Time Temp Pulse Resp B/P Pulse Ox O2 Delivery O2 Flow Rate FiO2 11/27/16 08:00 95.9 60 20 176/81 90 11/27/16 00:59 95.9 88 18 163/70 90 11/26/16 19:17 60 18 159/72 97 Room Air Physical Exam GENERAL: This is a cachectic, well-developed patient, in mild distress. SKIN: Multiple bruises, healing lacerations on right forehead. Cool and dry. HEAD: Normocephalic. No temporal or scalp tenderness. EYES: Pupils equal round and reactive. Extraocular motions intact. No scleral icterus. No injection or drainage. ENT: Nose without bleeding, purulent drainage or septal hematoma. Throat without erythema, tonsillar hypertrophy or exudate. Uvula midline. Airway patent. NECK: Trachea midline. No JVD or lymphadenopathy. Supple, nontender, no meningeal signs. CARDIOVASCULAR: Regular rate and rhythm without murmurs, gallops, or rubs. RESPIRATORY: Clear to auscultation. Breath sounds equal bilaterally. No wheezes , rales, or rhonchi. GASTROINTESTINAL: Abdomen soft, non-tender, nondistended. No hepato-splenomegaly , or palpable masses. No guarding. MUSCULOSKELETAL: Extremities without clubbing, cyanosis, or edema. Left ankle deformity noted with 2+ dependent edema. NEUROLOGICAL: Awake and alert, confused, oriented X 0. Laboratory Laboratory Tests Test 11/26/16 11/26/16 11/27/16 12:50 14:10 04:16 White Blood Count 4.1 3.1 Red Blood Count 4.04 3.40 Hemoglobin 10.6 9.0 Hematocrit 33.7 27.9 Mean Corpuscular Volume 83.3 82.1 Mean Corpuscular Hemoglobin 26.3 26.6 Mean Corpuscular Hemoglobin 31.6 32.3 Concent Red Cell Distribution Width 18.5 18.6 Platelet Count 163 110 Mean Platelet Volume 7.9 7.4 Neutrophils (%) (Auto) 72.0 65.6 Lymphocytes (%) (Auto) 7.3 8.8 Monocytes (%) (Auto) 19.5 22.5 Eosinophils (%) (Auto) 0.4 2.1 Basophils (%) (Auto) 0.8 1.0 Neutrophils # (Auto) 2.9 2.0 Lymphocytes # (Auto) 0.3 0.3 Monocytes # (Auto) 0.8 0.7 Eosinophils # (Auto) 0.0 0.1 Basophils # (Auto) 0.0 0.0 CBC Comment DIFF FINAL DIFF FINAL Differential Comment Prothrombin Time 12.3 Prothromb Time International 1.1 Ratio Activated Partial 27.1 Thromboplast Time Sodium Level 140 143 Potassium Level 4.5 3.9 Chloride Level 105 110 Carbon Dioxide Level 24.3 24.3 Anion Gap 11 9 Blood Urea Nitrogen 14 17 Creatinine 1.61 1.29 Estimat Glomerular Filtration 41 53 Rate Random Glucose 142 101 Calcium Level 8.7 8.3 Magnesium Level 1.6 Total Creatine Kinase 158 Creatine Kinase MB 3.8 Troponin I 0.04 Urine Color YELLOW Urine Turbidity CLEAR Urine pH 6.0 Urine Specific [place] 1.010 Urine Protein NEG Urine Glucose (UA) NEG Urine Ketones NEG Urine Occult Blood MOD Urine Nitrite NEG Urine Bilirubin NEG Urine Urobilinogen LESS THAN 2.0 Urine Leukocyte Esterase NEG Urine RBC 70 Urine WBC 12 Urine Squamous Epithelial <1 Cells Urine Hyaline Casts 1 Microscopic Urinalysis Comment CULTURE INDICATED Total Bilirubin 0.7 Aspartate Amino Transf 23 (AST/SGOT) Alanine Aminotransferase 23 (ALT/SGPT) Alkaline Phosphatase 127 Total Protein 4.6 Albumin 2.5 Date/Time Procedure Status Source Growth 11/26/16 14:10 Urine Culture Received Urine Random Urine Pending Result Diagram: 11/27/16 0416 11/27/16 0416 Imaging Last 48 hours Impressions Pelvis X-Ray 11/26/16 1156 Signed Impressions: Service Date/Time: Saturday, November 26, 2016 12:34 - CONCLUSION: No acute bony abnormality Joe Currie MD Head CT 11/26/16 1156 Signed Impressions: Service Date/Time: Saturday, November 26, 2016 12:55 - CONCLUSION: Stable CT brain scan with atrophy and microvascular ischemic demyelinization. No acute intracranial abnormality Joe Currie MD Chest X-Ray 11/26/16 1156 Signed Impressions: Service Date/Time: Saturday, November 26, 2016 12:44 - CONCLUSION: No acute disease. Joe Currie MD Femur X-Ray 11/26/16 0000 Signed Impressions: Service Date/Time: Saturday, November 26, 2016 12:36 - CONCLUSION: Negative for fracture. Mark Burden MD FACR Cervical Spine CT 11/26/16 0000 Signed Impressions: Service Date/Time: Saturday, November 26, 2016 12:55 - CONCLUSION: Stable degenerative findings of the cervical spine as described above. No acute bony abnormality Joe Currie MD Assessment and Plan Problem List: (1) OA (osteoarthritis) Status: Chronic Plan: Protect bony prominences, high risk for skin breakdown. (2) Facial laceration Status: Chronic Plan: Resolving. CT negative. (3) Dehydration Status: Chronic Plan: Pt. with severe dementia, not taking PO well. Labs show recurrent dehydration in 2 days since discharge. (4) Contusion, hip Status: Acute Plan: Agitation, confusion at SNF with non-compliance and hip contusion. (5) Dementia with behavioral disturbance Status: Chronic Plan: Returned to [facility] 2 days ago and had recurrent agitation threatening and striking out at staff. Sent back to ED for psych eval. SNF refusing readmittance. Will consult CM for assistance in placement. 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 Will d/w family regarding possible palliative care consultation. Assessment and Plan D/W RN, Dr. Corado. Problem Qualifiers (1) Dementia with behavioral disturbance: Qualified Code: G30.1 - Late onset Alzheimer's disease with behavioral disturbance (2) Altered mental status: Qualified Code: R41.0 - Disorientation (3) OA (osteoarthritis): Qualified Code: M19.91 - Primary osteoarthritis, unspecified site (4) Contusion, hip: Qualified Code: S70.02XA - Contusion of left hip, initial encounter Vinita Mustafa Nov 27, 2016 12:59
--- NOTE | 2016-11-27 13:19 | PD.CONS ---
Provisional Diagnosis Admission Date Nov 26, 2016 at 15:54 [place] I. Dementia with behavioral disturbances. History of Present Illness Service Psychiatry Consult Requested By Primary Care Physician Ron Cruz MD HPI The patient is a 86 years old man, domiciled in [facility], no previous psychiatric history, no previous psychiatric hospitalizations, no previous suicidal attempts, he was diagnosed with dementia by primary care physician about 1 year ago, seen and evaluated by my about 2 weeks ago, multiple medical conditions, including COPD, pneumonia, hypernatremia, hypokalemia, UTI, who presents to the ED for evaluation of fall or rehabilitation facility. Patient had a fall today. Fall was not witnessed. Patient does not remember the fall but she is not a good historian secondary to dementia. Patient seems to be alert only to self but not to place or time. Patient complains of on the pain to the legs especially left hip. Again fall was not witnessed. Patient does have abrasions to the forehead which appear to be old. Patient denies any arm pain. No ankle pain. No knee pain. Patient denies any abdominal pain. No chest pain or shortness of breath. Has no allergies to medication. Has not taken anything for this. As per ER note Patient was just discharged yesterday from admission from dehydration from a nursing facility where his been staying for a while now. No obvious blood thinner use. Pain per patient's 5 out of 10. Per report from detention patient apparently is also very maltered. Per old medical records patient was altered during his admission when he was deemed to be cleared for discharge. Consulted to psychiatry due to aggressive behavior and combativeness. On psychiatric evaluation today patient was found calm and cooperative, unable to provide significant and reliable information to the psychiatric assessment due to level of dementia, he is disoriented in time and place, he things that he is in a cafeteria with his family, is unable to even guess the time, he feels that he is in 1931, however he is happily demented , happily confused, reports good mood, denies depression, denies suicidal ideation, denies visual and auditory hallucinations. No agitation, combativeness, aggressive behavior. Behavioral and mood dysregulation are observed during the evaluation. Review of Systems Constitutional: DENIES: Diaphoretic episodes, Fatigue, Fever, Weight gain, Weight loss, Chills, Dizziness, Change in appetite, Night Sweats Endocrine: DENIES: Heat/cold intolerance, Polydipsia, Polyuria, Polyphagia Eyes: DENIES: Blurred vision, Diplopia, Eye inflammation, Eye pain, Vision loss , Photosensitivity, Double Vision Ears, nose, mouth, throat: DENIES: Tinnitus, Hearing loss, Vertigo, Nasal discharge, Oral lesions, Throat pain, Hoarseness, Ear Pain, Running Nose, Epistaxis, Sinus Pain, Toothache, Odynophagia Respiratory: DENIES: Apneas, Cough, Snoring, Wheezing, Hemoptysis, Sputum production, Shortness of breath Cardiovascular: DENIES: Chest pain, Palpitations, Syncope, Dyspnea on Exertion , PND, Lower Extremity Edema, Orthopnea, Claudication Gastrointestinal: DENIES: Abdominal pain, Black stools, Bloody stools, Constipation, Diarrhea, Nausea, Vomiting, Difficulty Swallowing, Anorexia Neurologic: DENIES: Abnormal gait, Headache, Localized weakness, Paresthesias, Seizures, Speech Problems, Tremor, Poor Balance Psychiatric: DENIES: Anxiety, Confusion, Mood changes, Depression, Hallucinations, Agitation, Suicidal Ideation, Homicidal Ideation, Delusions Past Family Social History Coded Allergies: No Known Allergies (Verified , 11/26/16) Active Scripts Lactobacillus Acidophilus (Acidophilus/l-Sporogenes)1 Tab Tab1 Tab PO TID #90 TAB Prov:Shivani MendozaP 11/21/16 Rivastigmine Patch (Exelon Patch)4.6 mg/24 hr Patch1 Patch TD DAILY #30 PATCH Prov:Shivani MendozaP 11/21/16 Quetiapine 25 Mg Tab25 Mg PO BID@09,12 #60 TAB Prov:Shivani MendozaP 11/21/16 Memantine (Namenda)5 Mg Tab5 Mg PO DAILY #30 TAB Prov:Shivani Mendoza [facility] 11/21/16 Reported Medications Vancomycin 125 Mg [id number] Mg PO QID Ref 0 11/26/16 Trazodone 50 Mg Tab50 Mg PO HS #30 TAB Ref 0 11/26/16 Magnesium Hydroxide Liq (Milk of Magnesia Liq)400 Mg/5 Ml Susp30 Ml PO HS PRN ( IF NO BM IN 3 DAYS) #1 BOTTLE Ref 0 11/26/16 Sodium Phosphates (Enema Disposable)1 Rika Ene1 Applic [place] DIRECTED PRN (IF NO RESULTS 1 DAY AFTER SUPP) 11/26/16 Bisacodyl Supp (Dulcolax Supp)10 Mg Supp10 Mg RECTAL IN AM PRN (IF NO RESULTS 1 DAY AFTER MOM) #12 SUPP Ref 0 11/26/16 Magnesium Citrate Liq (Citroma Liq)300 Ml Itx524 Ml PO IN AM PRN (IF NO RESULTS AFTER ENEMA) #1 BOTTLE Ref 0 11/26/16 Acetaminophen (Tylenol 8 Hour Arthritis)650 Mg Cru775 Mg PO Q4HR PRN ( GENERALIZED PAIN/DISCOMFORT) 11/26/16 [place]-3 Fatty Acids (Fish Oil 1000 mg)1 Cap Cap1,000 Mg PO DAILY 11/26/16 Cholecalciferol (D3)1,000 Unit Cap1,000 Units PO DAILY 11/11/16 Simvastatin (Zocor)80 Mg Tab80 Mg PO DAILY #30 TAB Ref 0 11/03/16 Apixaban (Eliquis)5 Mg Tab5 Mg PO BID #60 TAB Ref 0 11/03/16 Levothyroxine 75 Mcg Tab75 Mcg PO DAILY #30 TAB Ref 0 11/03/16 Pantoprazole (Protonix)20 Mg Tab20 Mg PO DAILY #30 TAB Ref 0 11/03/16 Discontinued Reported Medications Fish Oil-Cholecalciferol ([place]-3 Fish Oil/Vitamin)1,000-1,000 Mg Cap1 Cap PO DAILY Ref 0 11/03/16 Risperidone (Risperdal)1 Mg Tab1 Mg PO Q12HR #60 TAB Ref 0 11/11/16 Alprazolam 0.25 Mg Tab0.25 Mg PO Q8H PRN (ANXIETY) Ref 0 11/11/16 Citalopram 10 Mg Tab10 Mg PO DAILY #30 TAB Ref 0 11/03/16 Metoprolol Succinate ER 24 HR 25 Mg Tab25 Mg PO DAILY #30 TAB Ref 0 11/03/16 Ferrous Sulfate 325 Mg Sut946 Mg PO DAILY #30 TAB Ref 0 11/03/16 Amlodipine 2.5 Mg Tab2.5 Mg PO DAILY #30 TAB Ref 0 11/03/16 Current Medications Medications (Trade) Dose Ordered Sig/Marcie Route Start Time Stop Time Status Last Admin (NS Flush) 2 ml UNSCH PRN FLUSH 11/26/16 18:15 (NS Flush) 2 ml BID FLUSH 11/26/16 21:00 11/27/16 09:00 (Restoril) 15 mg HS PRN PO 11/26/16 18:15 11/26/16 20:10 (Narcan Inj) 0.4 mg UNSCH PRN IV 11/26/16 18:15 (SEROquel) 50 mg TID PO 11/27/16 01:51 11/27/16 09:12 Physical Exam Vital Signs Vital Signs Date Time Temp Pulse Resp B/P Pulse Ox O2 Delivery O2 Flow Rate FiO2 11/27/16 08:00 95.9 60 20 176/81 90 11/26/16 19:17 Room Air Mental Status Examination Speech: Unremarkable Orientation: Person Memory: Impaired (describe) Thought Process: Loose Association Thought Content: Bizarre thinking Hallucination Type: None Attention and Concentration: Good Suicidal Ideation: No Previous Suicide Attempts: No Homicidal Ideation: No Previous Homicide Attempts: No Judgement: Poor Affect: Euthymic Mood: Euthymic Motor Activity: Normal gait Assessment & Plan Problem List: (1) Dementia with behavioral disturbance Assessment & Plan: At the moment of the psychiatric evaluation patient seems to be at baseline, pleasantly demented and confused, just oriented in person, no mood or behavioral dysregulation, aggressive behavior or agitation observed. There is no need of psychiatric intervention at this moment patient does not meet criteria for psychiatric admission. He should continue his Seroquel 50 mg twice a day for behavioral control and to help with sleep. Consul appreciated. ICD Code: F03.91 Assessment & Plan Estimated LOS: days Problem Qualifiers (1) Dementia with behavioral disturbance: Qualified Code: G30.1 - Late onset Alzheimer's disease with behavioral disturbance Pierce Mulligan MD Nov 27, 2016 13:18
[2016-11-27 16:00] VITALS: BP 127/59; PULSE 60; RESP 20; TEMP 97.2; O2SAT 96
--- NOTE | 2016-11-27 18:34 | EKG ---
Date Performed: 11/26/2016 Time Performed: 13:11:29 PTAGE: 86 years EKG: ELECTRONIC ATRIAL PACEMAKER ELECTRONIC VENTRICULAR PACEMAKER Likely underlying atrial fibri llation. Since previous tracing, no significant change noted ABNORMAL RHYTHM ECG PREVIOUS TRACING : 11/19/2016 16.46 DOCTOR: Mohit Grant Interpretating Date/Time 11/27/2016 18:32:48
[2016-11-27 19:49] VITALS: BP 117/66; PULSE 68; RESP 19; TEMP 95.2; O2SAT 94
[2016-11-27 23:32] VITALS: BP 117/70; PULSE 78; RESP 18; TEMP 95.4; O2SAT 97
[2016-11-28 03:39] VITALS: BP 117/65; PULSE 67; RESP 18; TEMP 97; O2SAT 94
[2016-11-28 08:56] VITALS: BP 114/59; PULSE 60; RESP 20; TEMP 97.6; O2SAT 94
[2016-11-28] MEDS: SODIUM CHLORIDE 0.9% FLUSH 5 ML FLUSH FLUSH SCH ×2 (09:00→21:25)
[2016-11-28] MEDS: QUEtiapine FUMARATE 25 MG TAB PO SCH ×3 (09:00→17:41)
[2016-11-28 12:26] VITALS: BP 112/78; PULSE 62; RESP 20; TEMP 98
--- NOTE | 2016-11-28 15:27 | HHI.PR ---
Subjective Remarks Quiet, non combative. Objective Vital Signs Date Time Temp Pulse Resp B/P Pulse Ox O2 Delivery O2 Flow Rate FiO2 11/28/16 12:26 98.0 62 20 112/78 11/28/16 08:56 97.6 60 20 114/59 94 11/28/16 03:39 97.0 67 18 117/65 94 11/27/16 23:32 95.4 78 18 117/70 97 11/27/16 19:49 95.2 68 19 117/66 94 11/27/16 16:00 97.2 60 20 127/59 96 Result Diagram: 11/27/1641511/27/16415 Objective Remarks GENERAL: This is a cachectic, well-developed patient, in mild distress. SKIN: Multiple bruises, healing lacerations on forehead. Cool and dry. HEAD: Normocephalic. No temporal or scalp tenderness. EYES: Pupils equal round and reactive. Extraocular motions intact. No scleral icterus. No injection or drainage. ENT: Nose without bleeding, purulent drainage or septal hematoma. Throat without erythema, tonsillar hypertrophy or exudate. Uvula midline. Airway patent. NECK: Trachea midline. No JVD or lymphadenopathy. Supple, nontender, no meningeal signs. CARDIOVASCULAR: Regular rate and rhythm without murmurs, gallops, or rubs. RESPIRATORY: Clear to auscultation. Breath sounds equal bilaterally. No wheezes , rales, or rhonchi. GASTROINTESTINAL: Abdomen soft, non-tender, nondistended. No hepato-splenomegaly , or palpable masses. No guarding. MUSCULOSKELETAL: Extremities without clubbing, cyanosis, or edema. Left ankle deformity noted with 2+ dependent edema. NEUROLOGICAL:Lethargic, arousable, confused, oriented X 0. Medications and IVs Current Medications Medications (Trade) Dose Ordered Sig/Marcie Route Start Time Stop Time Status Last Admin (NS Flush) 2 ml UNSCH PRN FLUSH 11/26/16 18:15 (NS Flush) 2 ml BID FLUSH 11/26/16 21:00 11/28/16 09:00 (Restoril) 15 mg HS PRN PO 11/26/16 18:15 11/26/16 20:10 (Narcan Inj) 0.4 mg UNSCH PRN IV 11/26/16 18:15 (SEROquel) 50 mg TID PO 11/27/16 01:51 11/28/16 13:22 Assessment and Plan Problem List: (1) OA (osteoarthritis) Status: Chronic Plan: Protect bony prominences, high risk for skin breakdown. (2) Facial laceration Status: Chronic Plan: Resolving. CT negative. (3) Dehydration Status: Chronic Plan: Pt. with severe dementia, not taking PO well. Labs show recurrent dehydration in 2 days since discharge.Monitor labs. Encourage PO. (4) Contusion, hip Status: Acute Plan: Agitation, confusion at SNF with non-compliance and hip contusion. (5) Dementia with behavioral disturbance Status: Chronic Plan: Non combative on increased seroquel. SNF refusing readmittance. Will consult CM for assistance in placement. 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 Will d/w family regarding possible palliative care consultation. Assessment and Plan D/W RN, Dr. Corado. Problem Qualifiers (1) OA (osteoarthritis): Qualified Code: M19.91 - Primary osteoarthritis, unspecified site (2) Contusion, hip: Qualified Code: S70.02XA - Contusion of left hip, initial encounter (3) Dementia with behavioral disturbance: Qualified Code: G30.1 - Late onset Alzheimer's disease with behavioral disturbance Vinita Mustafa Nov 28, 2016 15:27
[2016-11-28 16:27] VITALS: BP 132/60; PULSE 66; RESP 18; TEMP 97.9; O2SAT 95
[2016-11-28 20:00] VITALS: BP 125/58; PULSE 59; RESP 19; TEMP 97; O2SAT 99
[2016-11-29] VITALS (7 sets, daily range): BP systolic 118–157; BP diastolic 60–81; PULSE 60–80; RESP 18–20; TEMP 95.9–98; O2SAT 93–100
[2016-11-29] MEDS: QUEtiapine FUMARATE 25 MG TAB PO SCH ×3 (08:54→17:16)
[2016-11-29] MEDS: SODIUM CHLORIDE 0.9% FLUSH 5 ML FLUSH FLUSH SCH ×2 (08:54→22:45)
--- NOTE | 2016-11-29 12:19 | HHI.PR ---
Subjective Remarks Agitated, restrained combative overnight. Objective Vital Signs Date Time Temp Pulse Resp B/P Pulse Ox O2 Delivery O2 Flow Rate FiO2 11/29/16 09:48 61 18 120/61 94 11/29/16 04:00 96.0 60 18 118/72 99 11/29/16 00:00 96.2 61 18 146/60 100 11/28/16 20:00 97.0 59 19 125/58 99 11/28/16 16:27 97.9 66 18 132/60 95 11/28/16 12:26 98.0 62 20 112/78 Result Diagram: 11/27/1641511/27/16415 Objective Remarks GENERAL: This is a cachectic, well-developed patient, in mild distress. SKIN: Multiple bruises, healing lacerations on forehead. Cool and dry. HEAD: Normocephalic. No temporal or scalp tenderness. EYES: Pupils equal round and reactive. Extraocular motions intact. No scleral icterus. No injection or drainage. ENT: Nose without bleeding, purulent drainage or septal hematoma. Throat without erythema, tonsillar hypertrophy or exudate. Uvula midline. Airway patent. NECK: Trachea midline. No JVD or lymphadenopathy. Supple, nontender, no meningeal signs. CARDIOVASCULAR: Regular rate and rhythm without murmurs, gallops, or rubs. RESPIRATORY: Clear to auscultation. Breath sounds equal bilaterally. No wheezes , rales, or rhonchi. GASTROINTESTINAL: Abdomen soft, non-tender, nondistended. No hepato-splenomegaly , or palpable masses. No guarding. MUSCULOSKELETAL: Extremities without clubbing, cyanosis, or edema. Left ankle deformity noted with 2+ dependent edema. NEUROLOGICAL:Agitated, yelling out, confused, oriented X 0. Medications and IVs Current Medications Medications (Trade) Dose Ordered Sig/Marcie Route Start Time Stop Time Status Last Admin (NS Flush) 2 ml UNSCH PRN FLUSH 11/26/16 18:15 (NS Flush) 2 ml BID FLUSH 11/26/16 21:00 11/29/16 08:54 (Restoril) 15 mg HS PRN PO 11/26/16 18:15 11/26/16 20:10 (Narcan Inj) 0.4 mg UNSCH PRN IV 11/26/16 18:15 (SEROquel) 50 mg TID PO 11/27/16 01:51 11/29/16 08:54 Assessment and Plan Problem List: (1) OA (osteoarthritis) Status: Chronic Plan: Protect bony prominences, high risk for skin breakdown. (2) Facial laceration Status: Chronic Plan: Resolving. CT negative. (3) Dehydration Status: Chronic Plan: Pt. with severe dementia, not taking PO well, requires assistance. Monitor labs. Encourage PO. (4) Contusion, hip Status: Acute Plan: Agitation, confusion at SNF with non-compliance and hip contusion. (5) Dementia with behavioral disturbance Status: Chronic Plan: Combative overnight on increased seroquel. SNF refusing readmittance. CM attempting placement. 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 d/w family regarding code status, d/w children. Assessment and Plan D/W RN, Dr. Corado. 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
[2016-11-29] MEDS: TEMAZEPAM 15 MG CAP PO PRN (22:45)
[2016-11-30 04:56] VITALS: BP 142/70; PULSE 76; RESP 19; TEMP 96.2; O2SAT 94
[2016-11-30 08:19] VITALS: BP 140/83; PULSE 60; RESP 17; TEMP 98.2; O2SAT 94
[2016-11-30 08:35] LABS: AUTOMATED NEUTROPHIL # 0.9 TH/MM3 (1.8-7.7); BASOPHIL % 0.5 % (0.0-2.0); BICARBONATE 26.6 MEQ/L (21.0-32.0); EOSINOPHIL # 0.1 TH/MM3 (0-0.4); EOSINOPHIL % 6.9 % (0.0-4.0); HEMATOCRIT 30.2 % (39.0-51.0); LYMPHOCYTE # 0.4 TH/MM3 (1.0-4.8); MEAN CELL VOLUME 81.1 FL (80.0-100.0); MEAN CORPUSCULAR HEMOGLOBIN 26.4 PG (27.0-34.0); MEAN CORPUSCULAR HGB CONC 32.6 % (32.0-36.0); MONO % 26.5 % (0.0-8.0); NEUT % 46.1 % (16.0-70.0); PLATELET COUNT 144 TH/MM3 (150-450); POTASSIUM 4.8 MEQ/L (3.5-5.1); RED BLOOD COUNT 3.72 MIL/MM3 (4.50-5.90); RED CELL DISTRIBUTION WIDTH 18.7 % (11.6-17.2)
[2016-11-30 08:42] LABS: HEMO FLAGS AUTO DIFF
[2016-11-30] MEDS: QUEtiapine FUMARATE 25 MG TAB PO SCH ×3 (09:33→19:09)
[2016-11-30] MEDS: SODIUM CHLORIDE 0.9% FLUSH 5 ML FLUSH FLUSH SCH ×2 (09:36→20:56)
[2016-11-30 09:46] LABS: BANDS 13 % (0-6); EOSINOPHILS 5 % (0-4); MYELOCYTES 2 % (0-0); NEUTROPHIL # MANUAL DIFF 1.1 TH/MM3 (1.8-7.7); POLYS (SEG NEUTROPHILS) 40 % (16-70); WBC DIFF SAMPLE 100
[2016-11-30 09:48] LABS: KERATOCYTES OCC (NORMAL); PLATELET ESTIMATE SMEAR LOW (NORMAL); PLATELET MORPHOLOGY NORMAL (NORMAL); SCAN/DIFF FINAL DIFF MANUAL
--- NOTE | 2016-11-30 12:22 | HHI.PR ---
Subjective Remarks Agitated, restrained, again combative overnight. Objective Vital Signs Date Time Temp Pulse Resp B/P Pulse Ox O2 Delivery O2 Flow Rate FiO2 11/30/16 08:19 98.2 60 17 140/83 94 11/30/16 04:56 96.2 76 19 142/70 94 11/29/16 23:51 95.9 75 20 140/68 93 11/29/16 19:44 97.5 80 19 145/70 95 11/29/16 16:44 98.0 77 18 157/81 94 Result Diagram: 11/30/16 0800 11/30/16 08 Objective Remarks GENERAL: This is a cachectic, well-developed patient, in mild distress. SKIN: Multiple bruises, healing lacerations on forehead. Cool and dry. HEAD: Normocephalic. No temporal or scalp tenderness. EYES: Pupils equal round and reactive. Extraocular motions intact. No scleral icterus. No injection or drainage. ENT: Nose without bleeding, purulent drainage or septal hematoma. Throat without erythema, tonsillar hypertrophy or exudate. Uvula midline. Airway patent. NECK: Trachea midline. No JVD or lymphadenopathy. Supple, nontender, no meningeal signs. CARDIOVASCULAR: Regular rate and rhythm without murmurs, gallops, or rubs. RESPIRATORY: Clear to auscultation. Breath sounds equal bilaterally. No wheezes , rales, or rhonchi. GASTROINTESTINAL: Abdomen soft, non-tender, nondistended. No hepato-splenomegaly , or palpable masses. No guarding. MUSCULOSKELETAL: Extremities without clubbing, cyanosis, or edema. Left ankle deformity noted with 2+ dependent edema. NEUROLOGICAL:Agitated, yelling out, confused, oriented X 0. Medications and IVs Current Medications Medications (Trade) Dose Ordered Sig/Marcie Route Start Time Stop Time Status Last Admin (NS Flush) 2 ml UNSCH PRN FLUSH 11/26/16 18:15 (NS Flush) 2 ml BID FLUSH 11/26/16 21:00 11/30/16 09:36 (Restoril) 15 mg HS PRN PO 11/26/16 18:15 11/29/16 22:45 (Narcan Inj) 0.4 mg UNSCH PRN IV 11/26/16 18:15 (SEROquel) 50 mg TID PO 11/27/16 01:51 1/29/17 09:33 (risperDAL LIQ) 0.25 mg HS PO 11/29/16 21:00 11/29/16 22:44 Assessment and Plan Problem List: (1) OA (osteoarthritis) Status: Chronic Plan: Protect bony prominences, high risk for skin breakdown secondary to agitation, non-compliance, dementia.. (2) Facial laceration Status: Chronic Plan: Resolving. CT negative. (3) Dehydration Status: Chronic Plan: Pt. with severe dementia, not taking PO well, requires feeding assistance. Monitor labs. Encourage PO. (4) Contusion, hip Status: Acute Plan: Agitation, confusion at SNF with non-compliance and hip contusion. (5) Dementia with behavioral disturbance Status: Chronic Plan: Combative overnight. Uptitrating seroquel, risperidal. Remains agitated , restrained. SNF refusing readmittance. CM attempting placement. 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 d/w family regarding code status, d/w children. Assessment and Plan D/W RN, Dr. Corado. 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
[2016-11-30 13:27] VITALS: BP 135/69; PULSE 60; RESP 18; TEMP 97.7; O2SAT 94
[2016-11-30 15:20] VITALS: BP 126/67; PULSE 63; RESP 19; TEMP 97.8; O2SAT 95
[2016-12-01] VITALS: BP 121/58; PULSE 74; RESP 18; TEMP 98; O2SAT 97
[2016-12-01 08:11] VITALS: BP 127/75; PULSE 60; RESP 16; TEMP 97.3; O2SAT 94
[2016-12-01] MEDS: QUEtiapine FUMARATE 25 MG TAB PO SCH ×3 (08:27→17:25)
[2016-12-01] MEDS: SODIUM CHLORIDE 0.9% FLUSH 5 ML FLUSH FLUSH SCH ×2 (08:28→20:32)
[2016-12-01 11:28] VITALS: BP 114/70; PULSE 66; RESP 20; TEMP 97.8; O2SAT 99
[2016-12-01 12:15] VITALS: BP 143/67; PULSE 64; RESP 19; TEMP 97.3; O2SAT 100
[2016-12-01 15:49] VITALS: BP 113/59; PULSE 61; RESP 17; TEMP 97.5; O2SAT 94
--- NOTE | 2016-12-01 16:20 | HHI.PR ---
Subjective Remarks pt remains with out placement remains restrained Objective Vital Signs Date Time Temp Pulse Resp B/P Pulse Ox O2 Delivery O2 Flow Rate FiO2 12/01/16 15:49 97.5 61 17 113/59 94 12/01/16 12:15 97.3 64 19 143/67 100 12/01/16 11:28 97.8 66 20 114/70 99 12/01/16 08:11 97.3 60 16 127/75 94 12/01/16 00:00 98.0 74 18 121/58 97 I/O 11/30/16 11/30/16 11/30/16 12/01/16 12/01/16 12/01/16 07:00 15:00 23:00 07:00 15:00 23:00 Intake Total 500 ml Balance 500 ml Intake Oral 500 ml # Voids 6 # Bowel Movements 0 Result Diagram: 11/30/16 0800 11/30/16 0800 Objective Remarks GENERAL: SKIN: Warm and dry. HEAD: Atraumatic. Normocephalic. EYES: Pupils equal and round. No scleral icterus. No injection or drainage. ENT: No nasal bleeding or discharge. Mucous membranes pink and moist. NECK: Trachea midline. No JVD. CARDIOVASCULAR: Regular rate and rhythm. RESPIRATORY: No accessory muscle use. Clear to auscultation. Breath sounds equal bilaterally. GASTROINTESTINAL: Abdomen soft, non-tender, nondistended. Hepatic and splenic margins not palpable. MUSCULOSKELETAL: Extremities without clubbing, cyanosis, or edema. No obvious deformities. NEUROLOGICAL: Awake and alert. No obvious cranial nerve deficits. . Normal speech. PSYCHIATRIC: remains very confused Medications and IVs Current Medications Medications (Trade) Dose Ordered Sig/Marcie Route PRN Reason Start Time Stop Time Status Last Admin Dose Admin IV Flush (NS Flush) 2 ml UNSCH PRN FLUSH FLUSH AFTER USING IV ACCESS 11/26/16 18:15 IV Flush (NS Flush) 2 ml BID FLUSH 11/26/16 21:00 12/01/16 08:28 Temazepam (Restoril) 15 mg HS PRN PO INSOMNIA 11/26/16 18:15 11/29/16 22:45 Naloxone HCl (Narcan Inj) 0.4 mg UNSCH PRN IV SEE LABEL COMMENTS 11/26/16 18:15 Quetiapine Fumarate (SEROquel) 50 mg TID PO 11/27/16 01:51 12/01/16 13:53 Risperidone (risperDAL LIQ) 1 mg BID PO 11/30/16 21:00 12/01/16 09:00 Assessment and Plan Problem List: (1) Dementia with behavioral disturbance Status: Chronic Plan: will consult pallative care Problem Qualifiers (1) Dementia with behavioral disturbance: Qualified Code: 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
[2016-12-01 19:58] VITALS: BP 140/65; PULSE 61; RESP 18; TEMP 97.8
[2016-12-02 07:00] VITALS: BP 137/56; PULSE 60; RESP 20; TEMP 98; O2SAT 100
[2016-12-02 08:31] VITALS: BP 125/65; PULSE 61; RESP 16; TEMP 96.8; O2SAT 94
[2016-12-02] MEDS: QUEtiapine FUMARATE 25 MG TAB PO SCH ×3 (09:41→18:16)
[2016-12-02] MEDS: SODIUM CHLORIDE 0.9% FLUSH 5 ML FLUSH FLUSH SCH (09:41)
--- NOTE | 2016-12-02 11:28 | PD.CONS ---
Consult Service Palliative Care Consult Requested By Dr Corado . Primary Care Physician Ron Cruz MD Reason for Consultation a. To assist with evaluation and management of symptoms including: agitation b. To assist medical decision maker(s) with: better understanding of current medical conditions; weighing benefits/burdens of medical treatment options; making medical treatment decisions. HPI History of Present Illness This 86 year old pt presented to the ED on 11/26/16, for evaluation after a fall in his facility ([facility]). (*unwitnessed) . Unknown if patient had a syncopal event. Pt poor historian 2/2 dementia, alert /oriented to self only. Reported pain to Lt hip, legs. No CP or SOB reported. * ED course: Labs unremarkable, chemistry notable for slightly elevated creatinine 1.61, GFR 41. Otherwise unremarkable. UA obtained notable for some blood and WBCs,? Related to catheter insertion. EKG= sinus rhythm with sinus of acute ischemia arrhythmia. Troponin, CK-MB negative. Cervical spine CT negative for acute process. Femur x-ray negative for fracture. Chest x-ray negative for acute process. Head CT stable with atrophy, microvascular ischemic demyelinization no acute process. Pelvis x-ray negative for fracture. Patient was stable and cleared for discharge back to facility. Later that day upon attempting to make arrangements to transfer back to facility assisted reported they would not accept the patient back. Facility reporting patient was more altered than usual and had aggressive behaviors toward staff. Reported recently diagnosed with C. difficile UTI with sepsis. Patient noted to be stable in terms of lab in clinical exam but mental status is somewhat altered. Patient was admitted for further evaluation and management. * Neurology was consulted--- neurology does not recommend any medications that would be of help to patient in terms of dementia treatment. Does recommend increasing Seroquel. Psychiatry also consulted. Recommends placement in a facility that specializes in dementia management. Further notes patient had been started on Namenda earlier in November his B12, thyroid were unremarkable. If he gets severely agitated recommends Haldol. Otherwise continue current treatment any other medication regimens deferred to psychiatry. Case management assist with placement. * Dr. Chaidez psychiatry evaluated patient notes patient seems to be at baseline pleasantly demented and confused. Oriented to person only. No behavioral dysregulation aggressive behavior or agitation. No need for psychiatric intervention. Should continue Seroquel for behavioral to help with sleep. * Patient has remained in the hospital with episodes of agitation, requiring restraints. Primarily at night. Medical attending notes discussion with family regarding CODE STATUS. Patient apparently remains full code. Case management unable to find accepting placement at facility. Palliative care consulted to assist with clarification of goals of treatment. Of note patient recently admitted from 11/11/16 through 11/25/16 for lethargy , apparently dehydration and UTI. Psychiatry, neurology also followed and evaluated patient during that visit. Neurology rec. Namenda, rec. OOB all day so will sleep Per psychiatry that admission patient had progressively worsened dementia and agitation over the 6 months prior. About a year ago patient reported he was able to drive, take care of himself and was fairly functional but had significantly declined to the point that he was at admission November 11 of this year, which was completely dependent for care. Pt apparently lived w his at home, spending 1/2 the year in [place], 1/2 the year in [place]. Just prior to that admission was in [facility] for short term rehab-- initially [facility] did not accept back but later did . He was also hospitalized 10/22/15 through 10/31-- hospitalized for generalized weakness, AMS, inability to ambulate, fever, increased falls. Admitted for treatment of sepsis, pulmonary edema.. Apparently during that admission there was some concern regarding aortic vegetation, positive MSSA bacteremia, LEE was done-no evidence of endocarditis or vegetation. Patient apparently lived at home prior to that, he was placed at [facility] for rehabilitation following that discharge. 12/02/16 patient seen in room with , daughter at bedside. Patient is lethargic, sleeping and minimally participated in consultation or exam. Met With and daughter at length at bedside approximately 50 minutes. See family conference for additional detail. Pt lethargic, minimally arouses for exam, intermittently follows simple commands. Does not verbalize. When asked if he wants lunch which has just arrived he shakes his head no. He seems to respond more to his family. No apparent distress/ agitation at time of my visit. Restraint to RUE. Function/Cognitive Trajectory About year ago patient was still driving however in the past 6 months or so he has had significant decline and increase in agitated behaviors. A year ago was able to complete most of his care himself, however in the past months has been completely dependent for care. Confused, oriented to self only. Dx w dementia about a year ago-- began with mild memory issues. Review of Systems ROS Limitations: Altered Mental Status, Poor Historian (*advanced dementia) Past Family Social History Coded Allergies: No Known Allergies (Verified , 11/26/16) Past Medical History Alzheimer's dementia Hypothyroidism CAD s/p OK with Stent to LAD, patent per cath 02/13 Ischemic cardiomyopathy EF 55-60% 2015 GERD Neck radiation Non-Hodgkins lymphoma OA R Shoulder pain Skin cancer - face Hypertension Hyperlipidemia Deformed L ankle with foot drop Prostate Cancer Complete Heart Block with Medtronic PPM-pacemaker MEDTRONIC 01/04/2015 REF# [id number] LOT#[id number] Hiatal Hernia Atrial fibrillation on Eliquis . Past Surgical History Left heart catheterization 02/13 Lymph node biopsy AAA repair 03/17 Galen knee replacements Galen hip replacements Cervical surgery for fx rpr s/p fall Total prostatectomy Pacemaker MEDTRONIC 01/04/2015 REF#[id number] LOT#[id number] . Reported Medications Acidophilus/l-Sporogenes (Lactobacillus Acidophilus) 1 Tab Tab 1 Tab PO TID Exelon Patch (Rivastigmine) 4.6 mg/24 hr Patch 1 Patch TD DAILY Quetiapine (Quetiapine Fumarate) 25 Mg Tab 25 Mg PO BID@09,12 Namenda (Memantine) 5 Mg Tab 5 Mg PO DAILY Vancomycin (Vancomycin HCl) 125 Mg Cap 125 Mg PO QID Trazodone (Trazodone HCl) 50 Mg Tab 50 Mg PO HS Milk of Magnesia Liq (Magnesium Hydroxide) 400 Mg/5 Ml Susp 30 Ml PO HS PRN Enema Disposable (Sodium Phosphates) 1 Rika Rika 1 Applic NE DIRECTED PRN Dulcolax Supp (Bisacodyl) 10 Mg Supp 10 Mg RECTAL IN AM PRN Citroma Liq (Magnesium Citrate) 300 Ml Liq 300 Ml PO IN AM PRN Tylenol 8 Hour Arthritis (Acetaminophen) 650 Mg Tab 650 Mg PO Q4HR PRN Fish Oil 1000 mg (Woodland-3 Fatty Acids) 1 Cap Cap 1,000 Mg PO DAILY D3 (Cholecalciferol) 1,000 Unit Cap 1,000 Units PO DAILY Zocor (Simvastatin) 80 Mg Tab 80 Mg PO DAILY Eliquis (Apixaban) 5 Mg Tab 5 Mg PO BID Levothyroxine (Levothyroxine Sodium) 75 Mcg Tab 75 Mcg PO DAILY Protonix (Pantoprazole Sodium) 20 Mg Tab 20 Mg PO DAILY . Current Medications Medications (Trade) Dose Ordered Sig/Marcie Route Start Time Stop Time Status Last Admin (NS Flush) 2 ml UNSCH PRN FLUSH 11/26/16 18:15 (NS Flush) 2 ml BID FLUSH 11/26/16 21:00 12/02/16 09:41 (Restoril) 15 mg HS PRN PO 11/26/16 18:15 11/29/16 22:45 (Narcan Inj) 0.4 mg UNSCH PRN IV 11/26/16 18:15 (SEROquel) 50 mg TID PO 11/27/16 01:51 12/02/16 09:41 (risperDAL LIQ) 1 mg BID PO 11/30/16 21:00 12/02/16 09:00 Family History Per EMR Positive for breast and lung cancer Substance Use Tobacco: Former tobacco user Alcohol: Former EtOH socially, in the past Prescription med abuse: None Illicits: None . Psychosocial History . Lived at home w prior to most recent admission, went to nursing facility after that due to increasing care needs. 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 Spends 1/2 yr in [place], 1/2 yr in [place] with his . Spiritual/Cultural Factors Scientology . Living Will: Never completed Health Care Surrogate: Never completed Durable Power of Chemistry Intern: Never completed Ethical and Legal Issues Patient is not capacitated and able to participate in decision-making due to advanced dementia, per statutes his would be legal decision maker. Physical Exam Vital Signs Date Time Temp Pulse Resp B/P Pulse Ox O2 Delivery O2 Flow Rate FiO2 12/02/16 08:31 96.8 61 16 125/65 94 12/02/16 07:00 98.0 60 20 137/56 100 12/01/16 19:58 97.8 61 18 140/65 12/01/16 15:49 97.5 61 17 113/59 94 12/01/16 12:15 97.3 64 19 143/67 100 12/01/16 11:28 97.8 66 20 114/70 99 Exam CONSTITUTIONAL/GENERAL: This is a thin, frail-appearing patient. TUBES/LINES/DRAINS: Peripheral IV right upper extremity SKIN: No jaundice, rashes, or lesions. Healing abrasions to for head, top of head. Few scattered ecchymosis to upper extremities. Skin temperature appropriate. Not diaphoretic. HEAD: Normocephalic, see above. EYES: Pupils equal and round and reactive. Extraocular motions intact. No scleral icterus. No injection or drainage. Fundi not examined. ENT: Nose without bleeding or purulent drainage. Will not open mouth for oropharynx exam. Mucous membranes appear dry. NECK: Trachea midline. Supple, nontender. No palpable thyroid enlargement or nodularity. CARDIOVASCULAR: Irregular rate and rhythm . Noted implanted device left chest. No JVD. Peripheral pulses symmetric. RESPIRATORY/CHEST: Symmetric, unlabored respirations on room air. Clear to auscultation. Breath sounds equal bilaterally. GASTROINTESTINAL: Abdomen soft, flat, non-tender, nondistended. No hepato- splenomegaly, or palpable masses. No guarding. Bowel sounds present. GENITOURINARY: Without palpable bladder distension. MUSCULOSKELETAL: Extremities without clubbing, cyanosis, or edema. No mottling or clubbing. LYMPHATICS: No palpable cervical or supraclavicular adenopathy. NEUROLOGICAL: Lethargic minimally arouses for exam. To determine orientation because he does not really verbalize for me. Intermittently follows simple commands appears to move all 4 extremities. Does not follow commands consistently. Does not verbalize or consistently nod to any of my questions. PSYCHIATRIC: No obvious anxiety/depression. no apparent hallucinations or other psychotic thought process. Diagnostic Tests Laboratory Laboratory Tests Test 11/30/16 08:00 White Blood Count 2.0 TH/MM3 (4.0-11.0) Red Blood Count 3.72 MIL/MM3 (4.50-5.90) Hemoglobin 9.8 GM/DL (13.0-17.0) Hematocrit 30.2 % (39.0-51.0) Mean Corpuscular Volume 81.1 FL (80.0-100.0) Mean Corpuscular Hemoglobin 26.4 PG (27.0-34.0) Mean Corpuscular Hemoglobin 32.6 % Concent (32.0-36.0) Red Cell Distribution Width 18.7 % (11.6-17.2) Platelet Count 144 TH/MM3 (150-450) Mean Platelet Volume 7.8 FL (7.0-11.0) Neutrophils (%) (Auto) 46.1 % (16.0-70.0) Lymphocytes (%) (Auto) 20.0 % (9.0-44.0) Monocytes (%) (Auto) 26.5 % (0.0-8.0) Eosinophils (%) (Auto) 6.9 % (0.0-4.0) Basophils (%) (Auto) 0.5 % (0.0-2.0) Neutrophils # (Auto) 0.9 TH/MM3 (1.8-7.7) Lymphocytes # (Auto) 0.4 TH/MM3 (1.0-4.8) Monocytes # (Auto) 0.5 TH/MM3 (0-0.9) Eosinophils # (Auto) 0.1 TH/MM3 (0-0.4) Basophils # (Auto) 0.0 TH/MM3 (0-0.2) CBC Comment AUTO DIFF Differential Total Cells 100 Counted Neutrophils % (Manual) 40 % (16-70) Band Neutrophils % 13 % (0-6) Lymphocytes % 16 % (9-44) Monocytes % 24 % (0-8) Eosinophils % 5 % (0-4) Neutrophils # (Manual) 1.1 TH/MM3 (1.8-7.7) Myelocytes 2 % (0-0) Differential Comment FINAL DIFF MANUAL Platelet Estimate LOW (NORMAL) Platelet Morphology Comment NORMAL (NORMAL) Keratocytes OCC (NORMAL) Sodium Level 144 MEQ/L (136-145) Potassium Level 4.8 MEQ/L (3.5-5.1) Chloride Level 110 MEQ/L (98-107) Carbon Dioxide Level 26.6 MEQ/L (21.0-32.0) Anion Gap 7 MEQ/L (5-15) Blood Urea Nitrogen 20 MG/DL (7-18) Creatinine 1.20 MG/DL (0.60-1.30) Estimat Glomerular Filtration 58 ML/MIN (>89) Rate Random Glucose 90 MG/DL (74-106) Calcium Level 8.5 MG/DL (8.5-10.1) Result Diagram: 11/30/16 0800 11/30/16 0800 Imaging Last Impressions Pelvis X-Ray 11/26/16 1156 Signed Impressions: Service Date/Time: Saturday, November 26, 2016 12:34 - CONCLUSION: No acute bony abnormality Joe Currie MD Head CT 11/26/16 1156 Signed Impressions: Service Date/Time: Saturday, November 26, 2016 12:55 - CONCLUSION: Stable CT brain scan with atrophy and microvascular ischemic demyelinization. No acute intracranial abnormality Joe Currie MD Chest X-Ray 11/26/16 1156 Signed Impressions: Service Date/Time: Saturday, November 26, 2016 12:44 - CONCLUSION: No acute disease. Joe Currie MD Femur X-Ray 11/26/16 0000 Signed Impressions: Service Date/Time: Saturday, November 26, 2016 12:36 - CONCLUSION: Negative for fracture. Mark Burden MD FACR Cervical Spine CT 11/26/16 0000 Signed Impressions: Service Date/Time: Saturday, November 26, 2016 12:55 - CONCLUSION: Stable degenerative findings of the cervical spine as described above. No acute bony abnormality Joe Currie MD Patient/Family Conference Present at Family Conference: , daughter . Family Conference Time (mins): 50 Family Conference Location: Bedside Issues Discussed: Met w , dtr, at length at bedside. discussion included: * Palliative care role, purpose, approach * Additional medical, psychosocial, and spiritual history * Patients general health, functional status, and cognitive changes in the months leading up to the current hospitalization * Patient/family understanding of the current medical problems * Patient/family understanding of prognosis--much review of disease process / dementia progression , expected trajectory r/t dementia * Patients goals of care as best understood from advance directives and/or conversations and/or values * Current medical treatment options and benefits/burdens of those options, maximized current tx, underlying medical conditions have been tx this is likely progression of dementia. * Questions answered to the best of my ability * Palliative care contact information provided Much time spent reviewing dementia disease process and progressive nature. Additionally review disease process in context of patient last few months, and multiple medical comorbidities and trajectory of decline related to multiple acute hospitalizations. Review that the patient may stabilize in current state but would not be expected to regain cognitively and physically what he has lost in the past several months. They at times are visibly upset and seemed to be just hearing about much of the dementia progression process. attempt to help them explore equipment operator intermodal yard planning RE dementia, and decisions that could lie ahead including feeding tube etc (they are not at a point where those decisions are needed at this time, nor are they ready to process those decisions) They have many questions about trying to get the patient better and to return to his home in [place] where they live the rest of the year. I advised that he does remain high risk for further complications and setbacks related to recent trajectory of decline, and as soon as he is medically stable and discharged to a local facility they should investigate transition back to [place] to a facility there before he becomes more frail, more weak. At this time goals remain aggressive they do wish to continue with hospitalization, whatever treatments are available to help maintain patient current state of health. All questions answered. Provided with patient handouts regarding dementia disease process. Assessment and Plan Disease Oriented Problem List: (1) Dementia with behavioral disturbance (2) Altered mental status (3) Adult hypothyroidism (4) Dehydration (5) Contusion, hip (6) Failure to thrive in adult Symptom Scale: (1) Agitation 0-10 Scale: Unable to quantify (2) Malnutrition 0-10 Scale: Unable to quantify (3) Pain 0-10 Scale: Unable to quantify Pertinent Non-Medical Issues Psychosocial:. Lived at home w prior to most recent admission, went to nursing facility after that due to increasing care needs. 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 Spends 1/2 yr in [place], 1/2 yr in [place] with his . Spiritual:Scientology Legal:Patient is not capacitated and able to participate in decision-making due to advanced dementia, per [place] statutes his would be legal decision maker. Ethical issues impacting care: Important Contacts Essie De La Cruz [phone] Prognosis This patient has had progressive dementia, worsening in the past 6 months. Now with agitated behaviors. Pharmacological treatments of no benefit at this time and disease process. This is patient's third acute hospitalization in 2 months. He remains high-risk for further complications/setbacks/ hospitalizations related to disease progression. May be appropriate for hospice if goals compatible, if family desires comfort oriented treatments only. Code Status: Full Code Plan Legal decision maker:Patient is not capacitated and able to participate in decision-making due to advanced dementia, per [place] statutes his would be legal decision maker. Goals: at this time goals remain aggressive. Much review with family dementia trajectory and prognosis. They wish to try to stabilize patient and at some point in the near future get him back home to [place] where all the rest of their family is. CODE STATUS: Full code SYMPTOMS: --Agitation/anxiety-patient with history of dementia, reports worsening agitation behaviors over the past few months, lily at night. Rate of decline/ progression probably related to multiple recent acute hospitalizations related to sepsis, falls etc. currently on Restoril, Seroquel, PRN HS temazepam.( Psychiatry had been managing) Appears calm today. could consider PRN haldol, though does not appear necessary at this time. Avoid adding any additional RX at this time --pain- r/t multiple recent falls,healing facial lacerations, increasingly bedbound. Reported hip/leg pain on admission. (r/t recent fall) would avoid any opiates/narcotics, consider adding PRN Tylenol 650 mg PO Q 8 hr prn. Consider ibuprofen 400mg PO Q8 hr prn. no pain reported today per nsg, family. -- malnutrition- reports some weight loss over the past several months, patient eating a little bit less though does tend to eat better when encouraged by family. Current weight is 61.6 kg(135 pounds) believes his usual weight is around 150 pounds maybe about a year ago. This is also likely disease progression related. Will remain at risk for further decreased oral intake with disease progression, may at some point require feeding tube placement if goals are aggressive. Currently taking some by mouth with encouragement. Documented 25-75% of some meals during this admission though not documented every day. During most recent admission recorded to eat 25, 100 % of meals, primarily 8 100% of breakfast 25% of other meals. Albumin low 2.5. Consider adding nutritional supplements such as Boost, Ensure. Palliative care will continue to follow during hospital course as condition evolves, to assist patient/decision-maker with understanding of medical conditions, weighing benefits/burdens of treatment options, for clarification of goals of treatment. Additionally will assist with any symptoms of palliative concern Time Spent Total Floor Time (mins): 65 Thank you for the opportunity to participate in the care of Mr. De La Cruz. Attestation To help prompt me to consider important information that might be impacting today's encounter and assessment, information from prior notes written by myself or my colleagues may have been "brought forward" into today's note. My signature on this note, however, is an attestation that I personally performed the exam, history, and/or decision-making noted today, and, unless otherwise indicated, the interactions with patient, family, and staff as well as the review of records all occurred today. I also attest that the listed assessment and stated plan reflect my best clinical judgment today based on the combination of historical information, prior notes, and today's exam/ interactions. When time spent is documented, it refers only to time spent today by the signer, or if indicated, combined time spent today by collaborating physician/nurse practitioner. Nguyen Ren Dec 02, 2016 11:28
[2016-12-02 12:09] VITALS: BP 108/59; PULSE 71; RESP 16; TEMP 98; O2SAT 95
--- NOTE | 2016-12-02 15:01 | HHI.PR ---
Subjective Remarks Not agitated on current medications. Objective Vital Signs Date Time Temp Pulse Resp B/P Pulse Ox O2 Delivery O2 Flow Rate FiO2 12/02/16 12:09 98.0 71 16 108/59 95 12/02/16 08:31 96.8 61 16 125/65 94 12/02/16 07:00 98.0 60 20 137/56 100 12/01/16 19:58 97.8 61 18 140/65 12/01/16 15:49 97.5 61 17 113/59 94 Result Diagram: 11/30/16 0811/30/16 08 Objective Remarks GENERAL: This is a cachectic, well-developed patient, in no acute distress. SKIN: Multiple bruises, healing lacerations on forehead. Cool and dry. HEAD: Normocephalic. No temporal or scalp tenderness. EYES: Pupils equal round and reactive. Extraocular motions intact. No scleral icterus. No injection or drainage. ENT: Nose without bleeding, purulent drainage or septal hematoma. Throat without erythema, tonsillar hypertrophy or exudate. Uvula midline. Airway patent. NECK: Trachea midline. No JVD or lymphadenopathy. Supple, nontender, no meningeal signs. CARDIOVASCULAR: Regular rate and rhythm without murmurs, gallops, or rubs. RESPIRATORY: Clear to auscultation. Breath sounds equal bilaterally. No wheezes , rales, or rhonchi. GASTROINTESTINAL: Abdomen soft, non-tender, nondistended. No hepato-splenomegaly , or palpable masses. No guarding. MUSCULOSKELETAL: Extremities without clubbing, cyanosis, or edema. Left ankle deformity noted with 2+ dependent edema. NEUROLOGICAL:Calm, confused, oriented X 0. Assessment and Plan Problem List: (1) OA (osteoarthritis) Status: Chronic Plan: Protect bony prominences, high risk for skin breakdown secondary to agitation, non-compliance, dementia.. (2) Facial laceration Status: Chronic Plan: Resolving. CT negative. (3) Dehydration Status: Chronic Plan: Pt. with severe dementia, not taking PO well, requires feeding assistance. Monitor labs. Encourage PO. (4) Contusion, hip Status: Acute Plan: Agitation, confusion at SNF with non-compliance and hip contusion. (5) Dementia with behavioral disturbance Status: Resolved Plan: Calm on current meds. Palliative care consult reviewed, appreciated. SNF refusing readmittance. CM attempting placement. Family wishes aggressive care at this time, palliative care following. 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 Palliative care following. Family wishes aggressive care. Assessment and Plan D/W RN, Dr. Corado. Problem Qualifiers (1) OA (osteoarthritis): Qualified Code: M19.91 - Primary osteoarthritis, unspecified site (2) Contusion, hip: Qualified Code: S70.02XA - Contusion of left hip, initial encounter (3) Dementia with behavioral disturbance: Qualified Code: G30.1 - Late onset Alzheimer's disease with behavioral disturbance Vinita Mustafa Dec 02, 2016 15:01
[2016-12-02 17:07] VITALS: BP 169/82; PULSE 70; RESP 18; TEMP 97.5
[2016-12-02 20:18] VITALS: BP 130/60; PULSE 71; RESP 22; TEMP 96.6; O2SAT 94
[2016-12-03] MEDS: SODIUM CHLORIDE 0.9% FLUSH 5 ML FLUSH FLUSH SCH ×3 (00:03→20:19)
[2016-12-03 00:20] VITALS: BP 115/61; PULSE 89; RESP 20; TEMP 96.7; O2SAT 93
[2016-12-03 05:11] VITALS: BP 133/60; PULSE 65; RESP 20; TEMP 97.9; O2SAT 94
[2016-12-03 08:00] VITALS: BP 115/63; PULSE 66; RESP 20; TEMP 99; O2SAT 100
[2016-12-03] MEDS: QUEtiapine FUMARATE 25 MG TAB PO SCH ×3 (08:44→18:08)
[2016-12-03 12:00] VITALS: BP 142/71; PULSE 82; RESP 18; TEMP 98.5; O2SAT 100
--- NOTE | 2016-12-03 15:32 | HHI.PR ---
Subjective Remarks Confused, not following direction, more calm, trying to get OOB, family at bedside. Objective Vital Signs Date Time Temp Pulse Resp B/P Pulse Ox O2 Delivery O2 Flow Rate FiO2 12/03/16 12:00 98.5 82 18 142/71 100 12/03/16 08:00 99.0 66 20 115/63 100 12/03/16 05:11 97.9 65 20 133/60 94 12/03/16 00:20 96.7 89 20 115/61 93 12/02/16 20:18 96.6 71 22 130/60 94 12/02/16 17:07 97.5 70 18 169/82 I/O 12/02/16 12/02/16 12/02/16 12/03/16 12/03/16 12/03/16 07:00 15:00 23:00 07:00 15:00 23:00 Intake Total 100 ml Balance 100 ml Intake Oral 100 ml # Voids 1 2 # Bowel Movements 1 2 1 1 Result Diagram: 11/30/16 0800 11/30/16 0800 Objective Remarks GENERAL: This is a cachectic, well-developed patient, in no acute distress. SKIN: Multiple bruises, healing lacerations on forehead. Cool and dry. HEAD: Normocephalic. No temporal or scalp tenderness. EYES: Pupils equal round and reactive. Extraocular motions intact. No scleral icterus. No injection or drainage. ENT: Nose without bleeding, purulent drainage or septal hematoma. Throat without erythema, tonsillar hypertrophy or exudate. Uvula midline. Airway patent. NECK: Trachea midline. No JVD or lymphadenopathy. Supple, nontender, no meningeal signs. CARDIOVASCULAR: Regular rate and rhythm without murmurs, gallops, or rubs. RESPIRATORY: Clear to auscultation. Breath sounds equal bilaterally. No wheezes , rales, or rhonchi. GASTROINTESTINAL: Abdomen soft, non-tender, nondistended. No hepato-splenomegaly , or palpable masses. No guarding. MUSCULOSKELETAL: Extremities without clubbing, cyanosis, or edema. Left ankle deformity noted with 2+ dependent edema. NEUROLOGICAL:Calm, confused, oriented X 0. Medications and IVs Current Medications Medications (Trade) Dose Ordered Sig/Marcie Route Start Time Stop Time Status Last Admin (NS Flush) 2 ml UNSCH PRN FLUSH 11/26/16 18:15 (NS Flush) 2 ml BID FLUSH 11/26/16 21:00 12/03/16 08:44 (Restoril) 15 mg HS PRN PO 11/26/16 18:15 11/29/16 22:45 (Narcan Inj) 0.4 mg UNSCH PRN IV 11/26/16 18:15 (SEROquel) 50 mg TID PO 11/27/16 01:51 12/03/16 12:55 (risperDAL LIQ) 1 mg BID PO 11/30/16 21:00 12/03/16 08:43 Assessment and Plan Problem List: (1) OA (osteoarthritis) Status: Chronic Plan: Protect bony prominences, high risk for skin breakdown secondary to agitation, non-compliance, dementia.. (2) Facial laceration Status: Chronic Plan: Resolving. CT negative. (3) Dehydration Status: Chronic Plan: Pt. with severe dementia, not taking PO well, requires feeding assistance. Monitor labs. Encourage PO. (4) Contusion, hip Status: Acute Plan: Agitation, confusion at SNF with non-compliance and hip contusion. (5) Dementia with behavioral disturbance Status: Resolved Plan: Palliative care consult reviewed, appreciated. Dante Cain refusing readmittance. CM attempting placement at [facility]. Family wishes aggressive care at this time, palliative care following. Discussed advanced directives with and daughter at length. Another daughter coming down soon who wishes to be involved. Required restraints last night, unable to place if restraints required. Will increase night dose of risperdal to allow for rest as patient tries to climb out of bed at night and is at high risk for falls. 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 Requires feeding. Palliative care following. Family wishes aggressive care. Assessment and Plan D/W RN, Dr. Corado. 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
[2016-12-03 16:00] VITALS: BP 126/79; PULSE 92; RESP 17; TEMP 96.7; O2SAT 99
[2016-12-03 20:00] VITALS: BP 108/51; PULSE 79; RESP 26; TEMP 98.7; O2SAT 98
[2016-12-04] VITALS: BP 108/57; PULSE 79; RESP 26; TEMP 98.7; O2SAT 98
[2016-12-04 04:00] VITALS: BP 94/55; PULSE 72; RESP 18; TEMP 98.6; O2SAT 98
[2016-12-04 08:00] VITALS: BP 97/54; PULSE 65; RESP 23; TEMP 96.4; O2SAT 96
[2016-12-04] MEDS: SODIUM CHLORIDE 0.9% FLUSH 5 ML FLUSH FLUSH SCH ×2 (09:00→21:00)
[2016-12-04] MEDS: QUEtiapine FUMARATE 25 MG TAB PO SCH ×3 (09:15→17:58)
[2016-12-04 12:00] VITALS: BP 132/65; PULSE 86; RESP 22; TEMP 98.7; O2SAT 100
--- NOTE | 2016-12-04 14:16 | HHI.PR ---
Subjective Remarks More calm overnight on increased risperdol. Nurse planning to remove restraints today if he remains calm. Objective Vital Signs Date Time Temp Pulse Resp B/P Pulse Ox O2 Delivery O2 Flow Rate FiO2 12/04/16 12:00 98.7 86 22 132/65 100 12/04/16 08:00 96.4 65 23 97/54 96 12/04/16 04:00 98.6 72 18 94/55 98 12/04/16 00:00 98.7 79 26 108/57 98 12/03/16 20:00 98.7 79 26 108/51 98 12/03/16 16:00 96.7 92 17 126/79 99 I/O 12/03/16 12/03/16 12/03/16 12/04/16 12/04/16 12/04/16 06:59 14:59 22:59 06:59 14:59 22:59 Intake Total 480 ml Output Total 600 ml Balance -120 ml Intake Oral 480 ml Output Urine Total 600 ml # Voids 3 3 3 # Bowel Movements 1 2 2 Result Diagram: 11/30/16 0800 11/30/16 0800 Objective Remarks GENERAL: This is a cachectic, well-developed patient, in no acute distress. SKIN: Multiple bruises, healing lacerations on forehead. Cool and dry. HEAD: Normocephalic. No temporal or scalp tenderness. EYES: Pupils equal round and reactive. Extraocular motions intact. No scleral icterus. No injection or drainage. ENT: Nose without bleeding, purulent drainage or septal hematoma. Throat without erythema, tonsillar hypertrophy or exudate. Uvula midline. Airway patent. NECK: Trachea midline. No JVD or lymphadenopathy. Supple, nontender, no meningeal signs. CARDIOVASCULAR: Regular rate and rhythm without murmurs, gallops, or rubs. RESPIRATORY: Clear to auscultation. Breath sounds equal bilaterally. No wheezes , rales, or rhonchi. GASTROINTESTINAL: Abdomen soft, non-tender, nondistended. No hepato-splenomegaly , or palpable masses. No guarding. MUSCULOSKELETAL: Extremities without clubbing, cyanosis, or edema. Left ankle deformity noted with 2+ dependent edema. NEUROLOGICAL:Calm, confused, more pleasant today, oriented X 0. Assessment and Plan Problem List: (1) OA (osteoarthritis) Status: Chronic Plan: Protect bony prominences, high risk for skin breakdown secondary to agitation, non-compliance, dementia.. (2) Facial laceration Status: Chronic Plan: Resolving. CT negative. (3) Dehydration Status: Chronic Plan: Pt. with severe dementia, not taking PO well, requires feeding assistance. Monitor labs. Encourage PO. (4) Contusion, hip Status: Acute Plan: Agitation, confusion at SNF with non-compliance and hip contusion. (5) Dementia with behavioral disturbance Status: Resolved Plan: Palliative care consult reviewed, appreciated. Dante Cain refusing readmittance. CM attempting placement at [facility] once patient out of restraints. Still trying to get OOB, high risk for fall. Will increase daytime risperdal. . Family wishes aggressive care at this time, palliative care following. Discussed advanced directives with and daughter at length. Another daughter coming down soon who wishes to be involved. Required restraints last night, unable to place if restraints required. Improved rest overnight with increased risperdal. 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 Requires feeding. Palliative care following. Family wishes aggressive care. Assessment and Plan Placement is pending patient being out of restraints for 24 hours, then [facility] will reassess. Patient remains in restraints today as he continues to try to get OOB. D/W RN, Dr. Corado. 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
[2016-12-04 16:00] VITALS: BP 95/52; PULSE 78; RESP 20; TEMP 99.8; O2SAT 96
--- NOTE | 2016-12-04 17:40 | HHI.HCPN ---
Reason for visit a. To assist with evaluation and management of symptoms including: agitation b. To assist medical decision maker(s) with: better understanding of current medical conditions; weighing benefits/burdens of medical treatment options; making medical treatment decisions. Subjective/Interval History Follow up for agitation. Patient examined in room 1533. Pleasantly confused during my examination. Oriented to self only. Patient has no complaints, denies pain. He does not appear to be in any acute distress. He remains in soft restraints secondary to confusion/agitation. Discussed with upper caser, Maxine. Patient need to be out of restraints for 24 hours to be considered for placement. Will attempt to remove restraints later today if the patient remains calm. However, per nursing report the patient continues to have intermittent agitation, trying to climb out of bed. HS Risperdal dose was increased yesterday with positive affect, the patient was more calm overnight. Daily Risperdal dose increased to 1.5 mg PO 2 times daily on 12/04/16. Patient continues to have have poor nutritional intake. Requires assistance with feeding. . Family/friend interactions Spoke with patient's and daughter via telephone to discuss patient's clinical condition and discharge planning. Patient/family goals remain aggressive. Patient will need SNF placement at discharge, her verbally in a memory care unit. Patient must be out of soft restraints for 24 hours before being considered for placement. Will attempt to remove soft restraints later today if the patient remains calm. . Advance Directives Living Will: Never completed Health Care Surrogate: Never completed Durable Power of Internal Medicine Nurse Practitioner: Never completed Objective Vital Signs Date Time Temp Pulse Resp B/P Pulse Ox O2 Delivery O2 Flow Rate FiO2 12/04/16 12:00 98.7 86 22 132/65 100 12/04/16 08:00 96.4 65 23 97/54 96 12/04/16 04:00 98.6 72 18 94/55 98 12/04/16 00:00 98.7 79 26 108/57 98 12/03/16 20:00 98.7 79 26 108/51 98 Intake & Output 12/04/16 12/04/16 07:00 19:00 # Voids 6 1 # Bowel Movements 2 1 . Physical Exam CONSTITUTIONAL/GENERAL: This is a thin, frail-appearing patient. TUBES/LINES/DRAINS: PIV x 1 SKIN: No jaundice, rashes, or lesions. Healing abrasions to for head, top of head. Few scattered ecchymosis to upper extremities. Skin temperature appropriate. Not diaphoretic. HEAD: Normocephalic, see above. EYES: Pupils equal and round and reactive. Extraocular motions intact. No scleral icterus. No injection or drainage. Fundi not examined. ENT: Nose without bleeding or purulent drainage. NECK: Trachea midline. Supple, nontender. CARDIOVASCULAR: Irregular rate and rhythm . Noted implanted device left chest. No JVD. Peripheral pulses symmetric. RESPIRATORY/CHEST: Symmetric, unlabored respirations on room air. Clear to auscultation. Breath sounds equal bilaterally. GASTROINTESTINAL: Abdomen soft, flat, non-tender, nondistended. No hepato- splenomegaly, or palpable masses. No guarding. Bowel sounds present. GENITOURINARY: Without palpable bladder distension. MUSCULOSKELETAL: Extremities without clubbing, cyanosis, or edema. No mottling or clubbing. LYMPHATICS: No palpable cervical or supraclavicular adenopathy. NEUROLOGICAL: Oriented to person only. Attempts to respond to simple questions , speech somewhat nonsensical. Intermittently follows simple commands appears to move all 4 extremities. Does not follow commands consistently. PSYCHIATRIC: No obvious anxiety/depression. no apparent hallucinations or other psychotic thought process. . Diagnostic Tests Result Diagram: 11/30/16 0811/30/16 08 Assessment and Plan Disease Oriented Problem List: (1) Dementia with behavioral disturbance (2) Altered mental status (3) Adult hypothyroidism (4) Dehydration (5) Contusion, hip (6) Failure to thrive in adult Symptom Scale: (1) Agitation 0-10 Scale: Unable to quantify (2) Malnutrition 0-10 Scale: Unable to quantify (3) Pain 0-10 Scale: Unable to quantify Pertinent Non-Medical Issues Psychosocial:. Lived at home w prior to most recent admission, went to nursing facility after that due to increasing care needs. 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 Spends 1/2 yr in [place], 1/2 yr in [place] with his . Spiritual:Yazidi Legal:Patient is not capacitated and able to participate in decision-making due to advanced dementia, per [place] statutes his would be legal decision maker. Ethical issues impacting care: Important Contacts Essie De La Cruz [phone] Prognosis This patient has had progressive dementia, worsening in the past 6 months. Now with agitated behaviors. Pharmacological treatments of no benefit at this time and disease process. This is patient's third acute hospitalization in 2 months. He remains high-risk for further complications/setbacks/ hospitalizations related to disease progression. May be appropriate for hospice if goals compatible, if family desires comfort oriented treatments only. Code Status: Full Code Plan Legal decision maker:Patient is not capacitated and able to participate in decision-making due to advanced dementia, per [place] statutes his would be legal decision maker. Goals: Goals remain aggressive. The family hopes to stabilize patient and eventually return with him to [facility] where they have family. Spoke with patient's and daughter via telephone to discuss patient's clinical condition and discharge planning. Patient will need SNF placement at discharge, her verbally in a memory care unit. Patient must be out of soft restraints for 24 hours before being considered for placement. Will attempt to remove soft restraints later today if the patient remains calm. CODE STATUS: Full code SYMPTOMS: --Agitation/anxiety-patient with history of dementia, reports worsening agitation behaviors over the past few months, lily at night. Rate of decline/ progression probably related to multiple recent acute hospitalizations related to sepsis, falls etc. currently on Restoril, Seroquel, PRN HS temazepam.( Psychiatry had been managing) Appears calm today. could consider PRN haldol, though does not appear necessary at this time. Avoid adding any additional RX at this time --pain- r/t multiple recent falls,healing facial lacerations, increasingly bedbound. Reported hip/leg pain on admission. (r/t recent fall) would avoid any opiates/narcotics, consider adding PRN Tylenol 650 mg PO Q 8 hr prn. Consider ibuprofen 400mg PO Q8 hr prn. no pain reported today per nsg, family. -- malnutrition- reports some weight loss over the past several months, patient eating a little bit less though does tend to eat better when encouraged by family. Current weight is 61.6 kg(135 pounds) believes his usual weight is around 150 pounds maybe about a year ago. This is also likely disease progression related. Will remain at risk for further decreased oral intake with disease progression, may at some point require feeding tube placement if goals are aggressive. Currently taking some by mouth with encouragement. Documented 25-75% of some meals during this admission though not documented every day. During most recent admission recorded to eat 25, 100 % of meals, primarily 8 100% of breakfast 25% of other meals. Albumin low 2.5. Consider adding nutritional supplements such as Boost, Ensure. Palliative care will continue to follow during hospital course as condition evolves, to assist patient/decision-maker with understanding of medical conditions, weighing benefits/burdens of treatment options, for clarification of goals of treatment. Additionally will assist with any symptoms of palliative concern Attestation To help prompt me to consider important information that might be impacting today's encounter and assessment, information from prior notes written by myself or my colleagues may have been "brought forward" into today's note. My signature on this note, however, is an attestation that I personally performed the exam, history, and/or decision-making noted today, and, unless otherwise indicated, the interactions with patient, family, and staff as well as the review of records all occurred today. I also attest that the listed assessment and stated plan reflect my best clinical judgment today based on the combination of historical information, prior notes, and today's exam/ interactions. When time spent is documented, it refers only to time spent today by the signer, or if indicated, combined time spent today by collaborating physician/nurse practitioner. . Isa Rodriguez Dec 04, 2016 17:40
[2016-12-04 20:00] VITALS: BP 95/51; PULSE 76; RESP 16; TEMP 100.4; O2SAT 94
[2016-12-05] VITALS: BP 112/58; PULSE 75; RESP 22; TEMP 99.7; O2SAT 98
[2016-12-05 06:47] VITALS: BP 107/59; PULSE 60; RESP 16; TEMP 98.4; O2SAT 96
--- NOTE | 2016-12-05 07:38 | HHI.PR ---
Subjective Remarks Discussed end of life and placement with patients at length. Recommended SNF with hospice care and avoid further hospitalizations consider palliative care as an alternative Objective Vital Signs Date Time Temp Pulse Resp B/P Pulse Ox O2 Delivery O2 Flow Rate FiO2 12/05/16 06:47 98.4 60 16 107/59 96 12/05/16 00:00 99.7 75 22 112/58 98 12/04/16 20:00 100.4 76 16 95/51 94 12/04/16 16:00 99.8 78 20 95/52 96 12/04/16 12:00 98.7 86 22 132/65 100 12/04/16 08:00 96.4 65 23 97/54 96 I/O 12/04/16 12/04/16 12/04/16 12/05/16 12/05/16 12/05/16 07:00 15:00 23:00 07:00 15:00 23:00 # Voids 3 1 2 1 # Bowel Movements 1 1 2 Other Results GENERAL: Frail cachectic gentleman SKIN: Bruising, healing laceration on head. HEAD: Normocephalic. EYES: No scleral icterus. No injection or drainage. NECK: Supple, trachea midline. No JVD or lymphadenopathy. CARDIOVASCULAR: Regular rate and rhythm without murmurs, gallops, or rubs. RESPIRATORY: Breath sounds equal bilaterally. Diminished. No accessory muscle use. GASTROINTESTINAL: Abdomen soft, non-tender, nondistended. MUSCULOSKELETAL: No cyanosis, or edema. BACK: Nontender without obvious deformity. No CVA tenderness. NEUROLOGICAL: Calm not oriented. Medications and IVs Current Medications Medications (Trade) Dose Ordered Sig/Marcie Route Start Time Stop Time Status Last Admin (NS Flush) 2 ml UNSCH PRN FLUSH 11/26/16 18:15 (NS Flush) 2 ml BID FLUSH 11/26/16 21:00 12/04/16 21:00 (Restoril) 15 mg HS PRN PO 11/26/16 18:15 11/29/16 22:45 (Narcan Inj) 0.4 mg UNSCH PRN IV 11/26/16 18:15 (SEROquel) 50 mg TID PO 11/27/16 01:51 12/05/16 17:33 Risperidone 1.5 mg 1.5 mg BID PO 12/04/16 21:00 12/05/16 09:00 (NS 1000 ml Inj) 1,000 ml @ 75 mls/hr [id number] IV 12/05/16 11:00 12/05/16 11:00 (Ativan) 0.5 mg Q4H PRN PO 12/05/16 17:30 12/05/16 17:33 Assessment and Plan Problem List: (1) Dehydration Status: Chronic Plan: Patient blood pressure in the 80's. Poor PO intake. IVF's ordered (2) Dementia with behavioral disturbance Status: Resolved Plan: Restraints off as off 1200 yesterday. Patient is calm but not oriented. On Ativan, Seroquel and Risperdal. (3) Failure to thrive in adult Status: Chronic Plan: Patient with poor PO intake. Total feed. Palliative care following. 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
[2016-12-05 08:00] VITALS: BP 85/44; PULSE 61; RESP 24; TEMP 97.7; O2SAT 98
[2016-12-05] MEDS: SODIUM CHLORIDE 0.9% FLUSH 5 ML FLUSH FLUSH SCH ×2 (09:00→22:43)
[2016-12-05] MEDS: QUEtiapine FUMARATE 25 MG TAB PO SCH ×3 (09:38→17:33)
[2016-12-05] MEDS: SODIUM CHLOR 0.9% 1000 ML INJ 1,000 ML IV SCH (11:00)
[2016-12-05 12:00] VITALS: BP 104/58; PULSE 67; RESP 24; TEMP 98.3; O2SAT 97
[2016-12-05 16:00] VITALS: BP 121/60; PULSE 89; RESP 23; TEMP 99.3; O2SAT 100
[2016-12-05] MEDS: LORazepam 0.5 MG TAB PO PRN (17:33)
[2016-12-05 20:00] VITALS: BP 104/63; PULSE 81; RESP 18; TEMP 97; O2SAT 97
[2016-12-06] VITALS: BP 114/66; PULSE 72; RESP 20; TEMP 98.4; O2SAT 98
[2016-12-06] MEDS: SODIUM CHLOR 0.9% 1000 ML INJ 1,000 ML IV SCH ×2 (00:20→16:08)
[2016-12-06] MEDS: TEMAZEPAM 15 MG CAP PO PRN (00:27)
[2016-12-06 04:00] VITALS: BP 122/62; PULSE 72; RESP 18; TEMP 97.2; O2SAT 99
[2016-12-06] MEDS: QUEtiapine FUMARATE 25 MG TAB PO SCH ×3 (08:53→17:58)
[2016-12-06] MEDS: SODIUM CHLORIDE 0.9% FLUSH 5 ML FLUSH FLUSH SCH ×2 (08:53→21:00)
[2016-12-06 09:02] VITALS: BP 98/51; PULSE 65; RESP 18; TEMP 96.4; O2SAT 97
--- NOTE | 2016-12-06 11:24 | HHI.PR ---
Subjective Remarks discussed end of life and placement with paients at length again today recomend SNF with hospice care and avoid further hospitalizations consider pallative care as an alternative casemanagement has not set placement as of yet Objective Vital Signs Date Time Temp Pulse Resp B/P Pulse Ox O2 Delivery O2 Flow Rate FiO2 12/06/16 09:02 96.4 65 18 98/51 97 12/06/16 04:00 97.2 72 18 122/62 99 12/06/16 00:00 98.4 72 20 114/66 98 12/05/16 20:00 97.0 81 18 104/63 97 12/05/16 16:00 99.3 89 23 121/60 100 12/05/16 12:00 98.3 67 24 104/58 97 I/O 12/05/16 12/05/16 12/05/16 12/06/16 12/06/16 12/06/16 07:00 15:00 23:00 07:00 15:00 23:00 Intake Total 1007 ml Output Total 5 ml Balance 1002 ml IV Total 1007 ml Output Urine Total 5 ml # Voids 1 2 # Bowel Movements 2 2 4 Objective Remarks GENERAL: SKIN: Warm and dry. HEAD: Atraumatic. Normocephalic. EYES: Pupils equal and round. No scleral icterus. No injection or drainage. ENT: No nasal bleeding or discharge. Mucous membranes pink and moist. NECK: Trachea midline. No JVD. CARDIOVASCULAR: Regular rate and rhythm. RESPIRATORY: No accessory muscle use. Clear to auscultation. Breath sounds equal bilaterally. GASTROINTESTINAL: Abdomen soft, non-tender, nondistended. Hepatic and splenic margins not palpable. MUSCULOSKELETAL: Extremities without clubbing, cyanosis, or edema. No obvious deformities. NEUROLOGICAL:No obvious cranial nerve deficits. . Normal speech. confused PSYCHIATRIC: remains very confused Medications and IVs Current Medications Medications (Trade) Dose Ordered Sig/Marcie Route PRN Reason Start Time Stop Time Status Last Admin Dose Admin IV Flush (NS Flush) 2 ml UNSCH PRN FLUSH FLUSH AFTER USING IV ACCESS 11/26/16 18:15 IV Flush (NS Flush) 2 ml BID FLUSH 11/26/16 21:00 12/05/16 22:43 Temazepam (Restoril) 15 mg HS PRN PO INSOMNIA 11/26/16 18:15 12/06/16 00:27 Naloxone HCl (Narcan Inj) 0.4 mg UNSCH PRN IV SEE LABEL COMMENTS 11/26/16 18:15 Quetiapine Fumarate (SEROquel) 50 mg TID PO 11/27/16 01:51 12/06/16 08:53 Risperidone 1.5 mg 1.5 mg BID PO 12/04/16 21:00 12/06/16 10:48 Sodium Chloride (NS 1000 ml Inj) 1,000 ml @ 75 mls/hr [id number] IV 12/05/16 11:00 12/06/16 00:20 Lorazepam (Ativan) 0.5 mg Q4H PRN PO AGITATION 12/05/16 17:30 12/05/16 17:33 Assessment and Plan Problem List: (1) Dementia with behavioral disturbance Status: Resolved Plan: will consult pallative care Assessment and Plan leukopenia will benson lab prior to dc Discussed Condition With nursing ccm Discharge Planning to snf when placed Problem Qualifiers (1) Dementia with behavioral disturbance: Qualified Code: 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
[2016-12-06 13:03] LABS: AUTOMATED NEUTROPHIL # 15.7 TH/MM3 (1.8-7.7); BASOPHIL % 0.2 % (0.0-2.0); EOSINOPHIL # 0.1 TH/MM3 (0-0.4); EOSINOPHIL % 0.6 % (0.0-4.0); HEMO FLAGS DIFF FINAL; LYMPH % 1.8 % (9.0-44.0); LYMPHOCYTE # 0.3 TH/MM3 (1.0-4.8); MEAN CELL VOLUME 80.3 FL (80.0-100.0); MEAN CORPUSCULAR HEMOGLOBIN 25.7 PG (27.0-34.0); MONO % 4.7 % (0.0-8.0); NEUT % 92.7 % (16.0-70.0); PLATELET COUNT 171 TH/MM3 (150-450); RED BLOOD COUNT 3.99 MIL/MM3 (4.50-5.90)
[2016-12-06 13:06] VITALS: BP 104/47; PULSE 59; RESP 18; TEMP 97.3; O2SAT 97
[2016-12-06 13:12] LABS: BICARBONATE 24.1 MEQ/L (21.0-32.0); POTASSIUM 3.8 MEQ/L (3.5-5.1)
[2016-12-06 17:16] VITALS: BP 136/66; PULSE 74; RESP 20; TEMP 98.8; O2SAT 94
[2016-12-06 20:12] VITALS: BP 107/61; PULSE 90; RESP 20; TEMP 97.8; O2SAT 99
[2016-12-07 00:26] VITALS: BP 123/69; PULSE 85; RESP 18; TEMP 97.2; O2SAT 99
[2016-12-07] MEDS: SODIUM CHLOR 0.9% 1000 ML INJ 1,000 ML IV SCH (03:00)
[2016-12-07 04:03] VITALS: BP 112/75; PULSE 100; RESP 20; TEMP 97.6; O2SAT 94
[2016-12-07 08:06] VITALS: BP 119/60; PULSE 87; RESP 20; TEMP 95.6; O2SAT 96
[2016-12-07] MEDS: QUEtiapine FUMARATE 25 MG TAB PO SCH ×3 (08:37→18:07)
[2016-12-07] MEDS: SODIUM CHLORIDE 0.9% FLUSH 5 ML FLUSH FLUSH SCH ×2 (08:38→22:07)
--- NOTE | 2016-12-07 11:01 | HHI.PR ---
Subjective Remarks discussed end of life and placement with paients at length again today recomend SNF with hospice care and avoid further hospitalizations consider pallative care as an alternative casemanagement has not set placement as of yet Objective Vital Signs Date Time Temp Pulse Resp B/P Pulse Ox O2 Delivery O2 Flow Rate FiO2 12/07/16 08:06 95.6 87 20 119/60 96 12/07/16 04:03 97.6 100 20 112/75 94 12/07/16 00:26 97.2 85 18 123/69 99 12/06/16 20:12 97.8 90 20 107/61 99 12/06/16 17:16 98.8 74 20 136/66 94 12/06/16 13:06 97.3 59 18 104/47 97 I/O 12/06/16 12/06/16 12/06/16 12/07/16 12/07/16 12/07/16 07:00 15:00 23:00 07:00 15:00 23:00 Intake Total 1007 ml 240 ml Output Total 5 ml Balance 1002 ml 240 ml Intake Oral 240 ml IV Total 1007 ml Output Urine Total 5 ml # Voids 1 2 # Bowel Movements 4 3 1 2 Result Diagram: 12/06/16 1230 12/06/16 1230 Objective Remarks GENERAL: SKIN: Warm and dry. HEAD: Atraumatic. Normocephalic. EYES: Pupils equal and round. No scleral icterus. No injection or drainage. ENT: No nasal bleeding or discharge. Mucous membranes pink and moist. NECK: Trachea midline. No JVD. CARDIOVASCULAR: Regular rate and rhythm. RESPIRATORY: No accessory muscle use. Clear to auscultation. Breath sounds equal bilaterally. GASTROINTESTINAL: Abdomen soft, non-tender, nondistended. Hepatic and splenic margins not palpable. MUSCULOSKELETAL: Extremities without clubbing, cyanosis, or edema. No obvious deformities. NEUROLOGICAL:No obvious cranial nerve deficits. . Normal speech. confused PSYCHIATRIC: remains very confused PULLED OUT ALL ivS Medications and IVs Current Medications Medications (Trade) Dose Ordered Sig/Marcie Route PRN Reason Start Time Stop Time Status Last Admin Dose Admin IV Flush (NS Flush) 2 ml UNSCH PRN FLUSH FLUSH AFTER USING IV ACCESS 11/26/16 18:15 IV Flush (NS Flush) 2 ml BID FLUSH 11/26/16 21:00 12/05/16 22:43 Temazepam (Restoril) 15 mg HS PRN PO INSOMNIA 11/26/16 18:15 12/06/16 00:27 Naloxone HCl (Narcan Inj) 0.4 mg UNSCH PRN IV SEE LABEL COMMENTS 11/26/16 18:15 Quetiapine Fumarate (SEROquel) 50 mg TID PO 11/27/16 01:51 12/07/16 08:37 Risperidone (risperDAL LIQ) 1.5 mg BID PO 12/04/16 21:00 12/07/16 08:38 Lorazepam (Ativan) 0.5 mg Q4H PRN PO AGITATION 12/05/16 17:30 12/05/16 17:33 Assessment and Plan Problem List: (1) Dementia with behavioral disturbance Status: Resolved Plan: will consult pallative care Assessment and Plan CBC SHOWS WBC UP WILL ASSES CXR AND UA START CEFTIN PO CONSULT HOSPICE Problem Qualifiers (1) Dementia with behavioral disturbance: Qualified Code: G30.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
--- NOTE | 2016-12-07 11:49 | RADRPT ---
EXAM DATE/TIME: 12/07/2016 11:30 [facility] COMPARISON: CHEST SINGLE AP, November 26, 2016, 12:44. INDICATIONS : Cough. MEDICAL HISTORY : Hypertension. Lymphoma. Cardiovascular disease. SURGICAL HISTORY : Pacemaker. ENCOUNTER: Initial ACUITY: 1 day PAIN SCORE: Non-responsive. LOCATION: Bilateral chest FINDINGS: A single view of the chest demonstrates cardiomegaly left-sided pacemaker. Calcified granuloma right upper lobe. Heart enlarged The cardiomediastinal contours are unremarkable. Osseous structures are i ntact. CONCLUSION: Cardiomegaly. No pneumonia. Daquan Leroy MD on December 07, 2016 at 11:47 Board Certified Radiologist. This report was verified electronically.
[2016-12-07 11:57] VITALS: BP 111/63; PULSE 80; RESP 20; TEMP 96.4; O2SAT 95
[2016-12-07] MEDS: LORazepam 0.5 MG TAB PO PRN (12:44)
[2016-12-07 14:00] LABS: AUTOMATED NEUTROPHIL # 14.9 TH/MM3 (1.8-7.7); BASOPHIL # 0.1 TH/MM3 (0-0.2); BASOPHIL % 0.6 % (0.0-2.0); EOSINOPHIL % 0.3 % (0.0-4.0); HEMATOCRIT 33.6 % (39.0-51.0); HEMO FLAGS DIFF FINAL; LYMPH % 1.5 % (9.0-44.0); LYMPHOCYTE # 0.2 TH/MM3 (1.0-4.8); MEAN CORPUSCULAR HEMOGLOBIN 25.5 PG (27.0-34.0); MEAN CORPUSCULAR HGB CONC 31.9 % (32.0-36.0); MONO % 5.1 % (0.0-8.0); NEUT % 92.5 % (16.0-70.0); PLATELET COUNT 195 TH/MM3 (150-450); RED CELL DISTRIBUTION WIDTH 18.9 % (11.6-17.2); WHITE BLOOD COUNT 16.1 TH/MM3 (4.0-11.0)
[2016-12-07 16:00] VITALS: BP 108/65; PULSE 106; RESP 20; TEMP 97.1; O2SAT 93
[2016-12-07 19:41] VITALS: BP 168/66; PULSE 80; RESP 20; TEMP 98.4; O2SAT 93
[2016-12-07] MEDS: CEFUROXIME AXETIL 500 MG TAB PO SCH (22:05)
[2016-12-08 00:38] VITALS: BP 99/66; PULSE 72; RESP 22; TEMP 98.2; O2SAT 98
[2016-12-08 04:50] VITALS: BP 95/61; PULSE 64; RESP 20; TEMP 97.6; O2SAT 100
--- NOTE | 2016-12-08 07:12 | HHI.PR ---
Subjective Remarks Recommended SNF with hospice. Family meeting set up with hospice [facility] for Thursday. Objective Vital Signs Date Time Temp Pulse Resp B/P Pulse Ox O2 Delivery O2 Flow Rate FiO2 12/08/16 04:50 97.6 64 20 95/61 100 12/08/16 00:38 98.2 72 22 99/66 98 12/07/16 19:41 98.4 80 20 168/66 93 12/07/16 16:00 97.1 106 20 108/65 93 12/07/16 11:57 96.4 80 20 111/63 95 12/07/16 08:06 95.6 87 20 119/60 96 I/O 12/07/16 12/07/16 12/07/16 12/08/16 12/08/16 12/08/16 07:00 15:00 23:00 07:00 15:00 23:00 # Voids 2 # Bowel Movements 2 2 3 Result Diagram: 12/07/16 1323 12/06/16 1230 Imaging Last 48 hours Impressions Chest X-Ray 12/07/16 0000 Signed Impressions: Service Date/Time: Wednesday, December 07, 2016 11:30 - CONCLUSION: Cardiomegaly. No pneumonia. Daquan Leroy MD Objective Remarks GENERAL: Frail cachetic elderly gentlemen SKIN: Warm and dry. HEAD: Normocephalic. EYES: No scleral icterus. No injection or drainage. NECK: Supple, trachea midline. No JVD or lymphadenopathy. CARDIOVASCULAR: Regular rate and rhythm without murmurs, gallops, or rubs. RESPIRATORY: Breath sounds diminished. No accessory muscle use. GASTROINTESTINAL: Abdomen soft, non-tender, nondistended. MUSCULOSKELETAL: No cyanosis, or edema. BACK: Nontender without obvious deformity. No CVA tenderness. Medications and IVs Current Medications Medications (Trade) Dose Ordered Sig/Marcie Route Start Time Stop Time Status Last Admin (NS Flush) 2 ml UNSCH PRN FLUSH 11/26/16 18:15 (NS Flush) 2 ml BID FLUSH 11/26/16 21:00 12/07/16 22:07 (Restoril) 15 mg HS PRN PO 11/26/16 18:15 12/06/16 00:27 (Narcan Inj) 0.4 mg UNSCH PRN IV 11/26/16 18:15 (SEROquel) 50 mg TID PO 11/27/16 01:51 12/08/16 09:50 (risperDAL LIQ) 1.5 mg BID PO 12/04/16 21:00 12/08/16 09:42 (Ativan) 0.5 mg Q4H PRN PO 12/05/16 17:30 12/07/16 12:44 (Ceftin) 500 mg Q12HR PO 12/07/16 21:00 12/08/16 09:40 Assessment and Plan Problem List: (1) Hypernatremia Status: Acute Plan: IVFs ordered. (2) Dehydration Status: Chronic Plan: Patient blood pressure in the 96/46. Poor PO intake. IVF's ordered (3) Dementia with behavioral disturbance Status: Resolved Plan: Restraints off. Patient is calm but not oriented. On Ativan, Seroquel and Risperdal. Reported per nursing that patient is agitated when moved. (4) Failure to thrive in adult Status: Chronic Plan: Patient with poor PO intake. Total feed. Palliative care following. Assessment and Plan Assessment and plan discussed with Dr. 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
[2016-12-08 07:25] VITALS: BP 101/59; PULSE 81; RESP 19; TEMP 96.6; O2SAT 97
[2016-12-08 08:31] LABS: BICARBONATE 22.4 MEQ/L (21.0-32.0); POTASSIUM 3.6 MEQ/L (3.5-5.1)
[2016-12-08] MEDS: SODIUM CHLORIDE 0.9% FLUSH 5 ML FLUSH FLUSH SCH ×2 (09:00→21:00)
[2016-12-08] MEDS: CEFUROXIME AXETIL 500 MG TAB PO SCH ×2 (09:40→22:43)
[2016-12-08] MEDS: QUEtiapine FUMARATE 25 MG TAB PO SCH ×3 (09:50→18:33)
[2016-12-08 11:55] VITALS: BP 96/56; PULSE 73; RESP 19; TEMP 96.7; O2SAT 97
[2016-12-08 15:46] VITALS: BP 114/64; PULSE 82; RESP 19; TEMP 97.5; O2SAT 96
[2016-12-08] MEDS: DEXTROSE 5% IN WATE 1000ML INJ 1,000 ML IV SCH (18:33)
[2016-12-08 20:18] VITALS: BP 120/72; PULSE 78; RESP 17; TEMP 98.1; O2SAT 96
[2016-12-09 00:07] VITALS: BP 125/66; PULSE 92; RESP 18; TEMP 97.1; O2SAT 96
[2016-12-09] MEDS: DEXTROSE 5% IN WATE 1000ML INJ 1,000 ML IV SCH ×2 (01:27→11:39)
[2016-12-09 04:00] VITALS: BP 138/57; PULSE 92; RESP 18; TEMP 97.9; O2SAT 98
[2016-12-09] MEDS: QUEtiapine FUMARATE 25 MG TAB PO SCH ×3 (04:48→17:57)
--- NOTE | 2016-12-09 07:05 | HHI.PR ---
Subjective Remarks Recommended SNF with hospice. Family meeting set up with hospice [facility] for Today. Patient pleasantly confused Objective Vital Signs Date Time Temp Pulse Resp B/P Pulse Ox O2 Delivery O2 Flow Rate FiO2 12/09/16 04:00 97.9 92 18 138/57 98 12/09/16 00:07 97.1 92 18 125/66 96 12/08/16 20:18 98.1 78 17 120/72 96 12/08/16 15:46 97.5 82 19 114/64 96 12/08/16 11:55 96.7 73 19 96/56 97 12/08/16 07:25 96.6 81 19 101/59 97 I/O 12/08/16 12/08/16 12/08/16 12/09/16 12/09/16 12/09/16 07:00 15:00 23:00 07:00 15:00 23:00 Intake Total 580 ml Balance 580 ml IV Total 580 ml Result Diagram: 12/07/16 1323 12/08/16 0706 Imaging Laboratory Tests Test 12/06/16 12/07/16 12/08/16 12/09/16 12:30 13:23 07:06 05:32 White Blood Count 17.0 TH/MM3 16.1 TH/MM3 (4.0-11.0) (4.0-11.0) Red Blood Count 3.99 MIL/MM3 4.20 MIL/MM3 3.86 MIL/MM3 (4.50-5.90) (4.50-5.90) (4.50-5.90) Hemoglobin 10.2 GM/DL 10.7 GM/DL 10.0 GM/DL (13.0-17.0) (13.0-17.0) (13.0-17.0) Hematocrit 32.0 % 33.6 % 31.4 % (39.0-51.0) (39.0-51.0) (39.0-51.0) Mean Corpuscular Hemoglobin 25.7 PG 25.5 PG 25.9 PG (27.0-34.0) (27.0-34.0) (27.0-34.0) Red Cell Distribution Width 19.0 % 18.9 % 19.3 % (11.6-17.2) (11.6-17.2) (11.6-17.2) Neutrophils (%) (Auto) 92.7 % 92.5 % 89.1 % (16.0-70.0) (16.0-70.0) (16.0-70.0) Lymphocytes (%) (Auto) 1.8 % 1.5 % 2.9 % (9.0-44.0) (9.0-44.0) (9.0-44.0) Neutrophils # (Auto) 15.7 TH/MM3 14.9 TH/MM3 9.7 TH/MM3 (1.8-7.7) (1.8-7.7) (1.8-7.7) Lymphocytes # (Auto) 0.3 TH/MM3 0.2 TH/MM3 0.3 TH/MM3 (1.0-4.8) (1.0-4.8) (1.0-4.8) Sodium Level 147 MEQ/L 151 MEQ/L 148 MEQ/L (136-145) (136-145) (136-145) Chloride Level 113 MEQ/L 118 MEQ/L 115 MEQ/L (98-107) (98-107) (98-107) Blood Urea Nitrogen 42 MG/DL (7-18) 61 MG/DL (7-18) 69 MG/DL (7-18) Creatinine 1.61 MG/DL 1.73 MG/DL 1.81 MG/DL (0.60-1.30) (0.60-1.30) (0.60-1.30) Estimat Glomerular Filtration 41 ML/MIN (>89) 38 ML/MIN (>89) 36 ML/MIN (>89) Rate Random Glucose 141 MG/DL 129 MG/DL 149 MG/DL (74-106) (74-106) (74-106) Calcium Level 8.3 MG/DL (8.5-10.1) Prealbumin 5 MG/DL (20-40) Mean Corpuscular Hemoglobin 31.9 % 31.8 % Concent (32.0-36.0) (32.0-36.0) Objective Remarks GENERAL: Frail cachetic elderly gentlemen SKIN: Warm and dry. HEAD: Normocephalic. EYES: No scleral icterus. No injection or drainage. NECK: Supple, trachea midline. No JVD or lymphadenopathy. CARDIOVASCULAR: Regular rate and rhythm without murmurs, gallops, or rubs. RESPIRATORY: Breath sounds diminished. No accessory muscle use. GASTROINTESTINAL: Abdomen soft, non-tender, nondistended. MUSCULOSKELETAL: No cyanosis, or edema. BACK: Nontender without obvious deformity. No CVA tenderness. Medications and IVs Current Medications Medications (Trade) Dose Ordered Sig/Marcie Route Start Time Stop Time Status Last Admin (NS Flush) 2 ml UNSCH PRN FLUSH 11/26/16 18:15 (NS Flush) 2 ml BID FLUSH 11/26/16 21:00 12/09/16 09:00 (Restoril) 15 mg HS PRN PO 11/26/16 18:15 12/06/16 00:27 (Narcan Inj) 0.4 mg UNSCH PRN IV 11/26/16 18:15 (SEROquel) 50 mg TID PO 11/27/16 01:51 12/09/16 04:48 (risperDAL LIQ) 1.5 mg BID PO 12/04/16 21:00 12/09/16 09:00 (Ativan) 0.5 mg Q4H PRN PO 12/05/16 17:30 12/07/16 12:44 Cefuroxime Axetil 500 mg 500 mg Q12HR PO 12/07/16 21:00 12/09/16 09:00 (D5W 1000 ml Inj) 1,000 ml @ 84 mls/hr [id number] IV 12/08/16 13:00 12/09/16 11:39 Assessment and Plan Problem List: (1) Hypernatremia Status: Acute Plan: IVFs ordered D5 W will continue for 24 more hours and recheck tomorrow (2) Dehydration Status: Chronic Plan: Patient blood pressure improved at 109/60. Poor PO intake. IVF's running (3) Dementia with behavioral disturbance Status: Resolved Plan: Restraints off. Patient is calm but not oriented. On Ativan, Seroquel and Risperdal. blender operator reported that patient did not need restraints and was confused but cooperative (4) Failure to thrive in adult Status: Chronic Plan: Patient with poor PO intake. Total feed. Palliative care following. Hospice meeting today (5) Diarrhea Status: Acute Plan: Frequent loose stools CDiFF ordered. Recent history of CDIFF Assessment and Plan Assessment and plan discussed with Dr. 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
[2016-12-09 07:13] LABS: AUTOMATED NEUTROPHIL # 9.7 TH/MM3 (1.8-7.7); BASOPHIL % 0.4 % (0.0-2.0); EOSINOPHIL # 0.1 TH/MM3 (0-0.4); EOSINOPHIL % 1.3 % (0.0-4.0); HEMATOCRIT 31.4 % (39.0-51.0); HEMO FLAGS DIFF FINAL; LYMPH % 2.9 % (9.0-44.0); LYMPHOCYTE # 0.3 TH/MM3 (1.0-4.8); MEAN CELL VOLUME 81.5 FL (80.0-100.0); MEAN CORPUSCULAR HEMOGLOBIN 25.9 PG (27.0-34.0); MEAN CORPUSCULAR HGB CONC 31.8 % (32.0-36.0); MONO % 6.3 % (0.0-8.0); NEUT % 89.1 % (16.0-70.0); PLATELET COUNT 183 TH/MM3 (150-450); RED BLOOD COUNT 3.86 MIL/MM3 (4.50-5.90); RED CELL DISTRIBUTION WIDTH 19.3 % (11.6-17.2); WHITE BLOOD COUNT 10.9 TH/MM3 (4.0-11.0)
[2016-12-09 07:32] LABS: BICARBONATE 21.8 MEQ/L (21.0-32.0); POTASSIUM 3.7 MEQ/L (3.5-5.1)
[2016-12-09 08:00] VITALS: BP 109/60; PULSE 80; RESP 18; TEMP 97; O2SAT 100
[2016-12-09] MEDS: CEFUROXIME AXETIL 500 MG TAB PO SCH (09:00)
[2016-12-09] MEDS: SODIUM CHLORIDE 0.9% FLUSH 5 ML FLUSH FLUSH SCH (09:00)
[2016-12-09 12:15] VITALS: BP 91/53; PULSE 79; RESP 22; TEMP 97.3; O2SAT 98
[2016-12-09 16:00] VITALS: BP 109/55; PULSE 67; RESP 18; TEMP 97.7; O2SAT 100
--- NOTE | 2016-12-09 17:02 | HHI.HCPN ---
Reason for visit a. To assist with evaluation and management of symptoms including: agitation b. To assist medical decision maker(s) with: better understanding of current medical conditions; weighing benefits/burdens of medical treatment options; making medical treatment decisions. Subjective/Interval History Follow up for agitation, goals. Discussed with charge nurse, hospice admissions nurse. Hospice admissions planning to meet with family today at 2, family upset and has multiple concerns /questions per nursing management. Patient has remained on medical floor, stable still with episodes of confusion. With poor appetite eating between 197112 percent of meals, though primarily less than 50%. BUN and creatinine continued to increase BUN 69/creatinine 1.81. Discharge planning in process with case management working on facility placement. Met with multiple family members at length, with hospice admissions nurse present. Patient's son is in town, [id number], another daughter, as well as . Met with them approximately 60 minutes. Discussion included the following: * Palliative care role, team members, reason for consult (additional family members had questions concerning our involvement) * Additional medical/social/spiritual history * Patient cognitive and functional status in the months to weeks prior to this admission--they all detail is steady trajectory of decline in the past 6-12 months, though most pronounced since around September 2016 * Patient and/or family understanding of current medical conditions prognosis treatment options and treatments * Overall condition, prognosis--much review of progressive nature of dementia and irreversible, uncurable disease process * Review of hospice role, philosophy, services provided In conclusion family all seems to understand progressive nature. They understand treatable things have been treated and patient still remains high risk for further complications and decline. They are tearful, appropriate. They seem to be leaning towards hospice enrollment, hospice nurse continue to meet with them following conclusion. Sounds likely they will proceed with hospice enrollment, with ultimate goal of getting patient back to [place] for end-of-life. . Advance Directives Living Will: Never completed Health Care Surrogate: Never completed Durable Power of City Engineer: Never completed Objective Vital Signs Date Time Temp Pulse Resp B/P Pulse Ox O2 Delivery O2 Flow Rate FiO2 12/09/16 12:15 97.3 79 22 91/53 98 12/09/16 08:00 97.0 80 18 109/60 100 12/09/16 04:00 97.9 92 18 138/57 98 12/09/16 00:07 97.1 92 18 125/66 96 12/08/16 20:18 98.1 78 17 120/72 96 Intake & Output 12/09/16 12/09/16 07:00 19:00 Intake Total 580 ml Balance 580 ml IV Total 580 ml Physical Exam CONSTITUTIONAL/GENERAL: This is a thin, frail-appearing patient. TUBES/LINES/DRAINS: PIV x 1 SKIN: No jaundice, rashes, or lesions. Healing abrasions to for head, top of head. Few scattered ecchymosis to upper extremities. Skin temperature appropriate. Not diaphoretic. HEAD: Normocephalic, see above. EYES: Pupils equal and round and reactive. Extraocular motions intact. No scleral icterus. No injection or drainage. Fundi not examined. ENT: Nose without bleeding or purulent drainage. NECK: Trachea midline. Supple, nontender. CARDIOVASCULAR: Irregular rate and rhythm . Noted implanted device left chest. No JVD. Peripheral pulses symmetric. RESPIRATORY/CHEST: Symmetric, unlabored respirations on room air. Clear to auscultation. Breath sounds equal bilaterally. GASTROINTESTINAL: Abdomen soft, flat, non-tender, nondistended. No hepato- splenomegaly, or palpable masses. No guarding. Bowel sounds present. GENITOURINARY: Without palpable bladder distension. MUSCULOSKELETAL: Extremities without clubbing, cyanosis, or edema. No mottling or clubbing. LYMPHATICS: No palpable cervical or supraclavicular adenopathy. NEUROLOGICAL: Oriented to person only. Attempts to respond to simple questions , speech somewhat nonsensical. Intermittently follows simple commands appears to move all 4 extremities. Does not follow commands consistently. PSYCHIATRIC: No obvious anxiety/depression. no apparent hallucinations or other psychotic thought process. . Diagnostic Tests Laboratory Laboratory Tests Test 12/07/16 12/08/16 12/09/16 13:23 07:06 05:32 White Blood Count 16.1 TH/MM3 10.9 TH/MM3 (4.0-11.0) (4.0-11.0) Red Blood Count 4.20 MIL/MM3 3.86 MIL/MM3 (4.50-5.90) (4.50-5.90) Hemoglobin 10.7 GM/DL 10.0 GM/DL (13.0-17.0) (13.0-17.0) Hematocrit 33.6 % 31.4 % (39.0-51.0) (39.0-51.0) Mean Corpuscular Volume 80.0 FL 81.5 FL (80.0-100.0) (80.0-100.0) Mean Corpuscular Hemoglobin 25.5 PG 25.9 PG (27.0-34.0) (27.0-34.0) Mean Corpuscular Hemoglobin 31.9 % 31.8 % Concent (32.0-36.0) (32.0-36.0) Red Cell Distribution Width 18.9 % 19.3 % (11.6-17.2) (11.6-17.2) Platelet Count 195 TH/MM3 183 TH/MM3 (150-450) (150-450) Mean Platelet Volume 8.2 FL 8.6 FL (7.0-11.0) (7.0-11.0) Neutrophils (%) (Auto) 92.5 % 89.1 % (16.0-70.0) (16.0-70.0) Lymphocytes (%) (Auto) 1.5 % 2.9 % (9.0-44.0) (9.0-44.0) Monocytes (%) (Auto) 5.1 % (0.0-8.0) 6.3 % (0.0-8.0) Eosinophils (%) (Auto) 0.3 % (0.0-4.0) 1.3 % (0.0-4.0) Basophils (%) (Auto) 0.6 % (0.0-2.0) 0.4 % (0.0-2.0) Neutrophils # (Auto) 14.9 TH/MM3 9.7 TH/MM3 (1.8-7.7) (1.8-7.7) Lymphocytes # (Auto) 0.2 TH/MM3 0.3 TH/MM3 (1.0-4.8) (1.0-4.8) Monocytes # (Auto) 0.8 TH/MM3 0.7 TH/MM3 (0-0.9) (0-0.9) Eosinophils # (Auto) 0.0 TH/MM3 0.1 TH/MM3 (0-0.4) (0-0.4) Basophils # (Auto) 0.1 TH/MM3 0.0 TH/MM3 (0-0.2) (0-0.2) CBC Comment DIFF FINAL DIFF FINAL Differential Comment Sodium Level 151 MEQ/L 148 MEQ/L (136-145) (136-145) Potassium Level 3.6 MEQ/L 3.7 MEQ/L (3.5-5.1) (3.5-5.1) Chloride Level 118 MEQ/L 115 MEQ/L (98-107) (98-107) Carbon Dioxide Level 22.4 MEQ/L 21.8 MEQ/L (21.0-32.0) (21.0-32.0) Anion Gap 11 MEQ/L (5-15) 11 MEQ/L (5-15) Blood Urea Nitrogen 61 MG/DL (7-18) 69 MG/DL (7-18) Creatinine 1.73 MG/DL 1.81 MG/DL (0.60-1.30) (0.60-1.30) Estimat Glomerular Filtration 38 ML/MIN (>89) 36 ML/MIN (>89) Rate Random Glucose 129 MG/DL 149 MG/DL (74-106) (74-106) Calcium Level 8.9 MG/DL 8.5 MG/DL (8.5-10.1) (8.5-10.1) Result Diagram: 12/09/1632 12/09/1632 Assessment and Plan Disease Oriented Problem List: (1) Dementia with behavioral disturbance (2) Altered mental status (3) Adult hypothyroidism (4) Dehydration (5) Contusion, hip (6) Failure to thrive in adult Symptom Scale: (1) Agitation 0-10 Scale: Unable to quantify (2) Malnutrition 0-10 Scale: Unable to quantify (3) Pain 0-10 Scale: Unable to quantify Pertinent Non-Medical Issues Psychosocial:. Lived at home w prior to most recent admission, went to nursing facility after that due to increasing care needs. 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 Spends 1/2 yr in [place], 1/2 yr in [place] with his . Spiritual:Judaism Legal:Patient is not capacitated and able to participate in decision-making due to advanced dementia, per [place] statutes his would be legal decision maker. Ethical issues impacting care: Important Contacts Essie De La Cruz [phone] Prognosis This patient has had progressive dementia, worsening in the past 6 months. Now with agitated behaviors. Pharmacological treatments of no benefit at this time and disease process. This is patient's third acute hospitalization in 2 months. He remains high-risk for further complications/setbacks/ hospitalizations related to disease progression. May be appropriate for hospice if goals compatible, if family desires comfort oriented treatments only. Code Status: Full Code Plan Legal decision maker:Patient is not capacitated and able to participate in decision-making due to advanced dementia, per [place] statutes his would be legal decision maker. Goals: Met at length with , multiple other family members today a proximally 60 minutes. Much review prognosis, disease process.In conclusion family all seems to understand progressive nature. They understand treatable things have been treated and patient still remains high risk for further complications and decline. They are tearful, appropriate. They seem to be leaning towards hospice enrollment, hospice nurse continue to meet with them following conclusion. Sounds likely they will proceed with hospice enrollment, with ultimate goal of getting patient back to [place] for end-of-life. CODE STATUS: Full code-hospice discussing further SYMPTOMS: --Agitation/anxiety-patient with history of dementia, reports worsening agitation behaviors over the past few months, lily at night. Rate of decline/ progression probably related to multiple recent acute hospitalizations related to sepsis, falls etc. currently on Restoril, Seroquel, PRN HS temazepam.( Psychiatry had been managing) Appears calm today. could consider PRN haldol, though does not appear necessary at this time. Avoid adding any additional RX at this time --pain- r/t multiple recent falls,healing facial lacerations, increasingly bedbound. Reported hip/leg pain on admission. (r/t recent fall) would avoid any opiates/narcotics, consider adding PRN Tylenol 650 mg PO Q 8 hr prn. Consider ibuprofen 400mg PO Q8 hr prn. no pain reported today per nsg, family. -- malnutrition- reports some weight loss over the past several months, patient eating a little bit less though does tend to eat better when encouraged by family. Current weight is 61.6 kg(135 pounds) believes his usual weight is around 150 pounds maybe about a year ago. This is also likely disease progression related. Will remain at risk for further decreased oral intake with disease progression, may at some point require feeding tube placement if goals are aggressive. Currently taking some by mouth with encouragement. Documented 25-75% of some meals during this admission though not documented every day. During most recent admission recorded to eat 25, 100 % of meals, primarily 8 100% of breakfast 25% of other meals. Albumin low 2.5. Consider adding nutritional supplements such as Boost, Ensure. Palliative care will continue to follow during hospital course as condition evolves, to assist patient/decision-maker with understanding of medical conditions, weighing benefits/burdens of treatment options, for clarification of goals of treatment. Additionally will assist with any symptoms of palliative concern Nguyen Ren Dec 09, 2016 17:02
--- NOTE | 2016-12-09 17:03 | HHI.DS ---
Discharge Summary Admission Date Nov 26, 2016 at 15:54 Discharge Date: Dec 09, 2016 Admitting Diagnosis altered mental status, dementia, inability to take for self (1) Advanced dementia CBC/BMP: 12/09/16 0532 12/09/16 0532 Significant Findings Laboratory Tests Test 12/07/16 12/08/16 12/09/16 13:23 07:06 05:32 White Blood Count 16.1 TH/MM3 (4.0-11.0) Red Blood Count 4.20 MIL/MM3 3.86 MIL/MM3 (4.50-5.90) (4.50-5.90) Hemoglobin 10.7 GM/DL 10.0 GM/DL (13.0-17.0) (13.0-17.0) Hematocrit 33.6 % 31.4 % (39.0-51.0) (39.0-51.0) Mean Corpuscular Hemoglobin 25.5 PG 25.9 PG (27.0-34.0) (27.0-34.0) Mean Corpuscular Hemoglobin 31.9 % 31.8 % Concent (32.0-36.0) (32.0-36.0) Red Cell Distribution Width 18.9 % 19.3 % (11.6-17.2) (11.6-17.2) Neutrophils (%) (Auto) 92.5 % 89.1 % (16.0-70.0) (16.0-70.0) Lymphocytes (%) (Auto) 1.5 % 2.9 % (9.0-44.0) (9.0-44.0) Neutrophils # (Auto) 14.9 TH/MM3 9.7 TH/MM3 (1.8-7.7) (1.8-7.7) Lymphocytes # (Auto) 0.2 TH/MM3 0.3 TH/MM3 (1.0-4.8) (1.0-4.8) Sodium Level 151 MEQ/L 148 MEQ/L (136-145) (136-145) Chloride Level 118 MEQ/L 115 MEQ/L (98-107) (98-107) Blood Urea Nitrogen 61 MG/DL (7-18) 69 MG/DL (7-18) Creatinine 1.73 MG/DL 1.81 MG/DL (0.60-1.30) (0.60-1.30) Estimat Glomerular Filtration 38 ML/MIN (>89) 36 ML/MIN (>89) Rate Random Glucose 129 MG/DL 149 MG/DL (74-106) (74-106) PE at Discharge GENERAL: Frail cachetic elderly gentlemen SKIN: Warm and dry. HEAD: Normocephalic. EYES: No scleral icterus. No injection or drainage. NECK: Supple, trachea midline. No JVD or lymphadenopathy. CARDIOVASCULAR: Regular rate and rhythm without murmurs, gallops, or rubs. RESPIRATORY: Breath sounds diminished. No accessory muscle use. GASTROINTESTINAL: Abdomen soft, non-tender, nondistended. MUSCULOSKELETAL: No cyanosis, or edema. BACK: Nontender without obvious deformity. No CVA tenderness. Transfer Summary 86-year-old male to presented to the ED for evaluation after fall at rehabilitation facility. Per report from [facility] patient apparently is presenting with AMS. Patient was recently admitted for AMS and C Diff and was treated with medication and discharged to rehab facility. Patient has been declining for over a year now with repeated hospitalizations. He is very cachetic and has sporadic behavior issues. He has been seen by Neurology and psych for recommendations and has had little improvement. Patient is being discharged in the care of hospice. Pt Condition on Discharge: Deteriorating Discharge Disposition: Hospice/Med Facility Discharge Instructions DIET: Follow Instructions for: As Tolerated, No Restrictions Activities you can perform: Regular-No Restrictions Continued Medications: Acetaminophen (Tylenol 8 Hour Arthritis) 650 Mg Tab 650 MG PO Q4HR PRN GENERALIZED PAIN/DISCOMFORT Bisacodyl Supp (Dulcolax Supp) 10 Mg Supp 10 MG RECTAL IN AM PRN IF NO RESULTS 1 DAY AFTER MOM #12 Ref 0 SUPP Levothyroxine (Levothyroxine) 75 Mcg Tab 75 MCG PO DAILY Thyroid #30 Ref 0 TAB Magnesium Citrate Liq (Citroma Liq) 300 Ml Liq 300 ML PO IN AM PRN IF NO RESULTS AFTER ENEMA #1 Ref 0 BOTTLE Magnesium Hydroxide Liq (Milk of Magnesia Liq) 400 Mg/5 Ml Susp 30 ML PO HS PRN IF NO BM IN 3 DAYS #1 Ref 0 BOTTLE Memantine (Namenda) 5 Mg Tab 5 MG PO DAILY Agitation #30 TAB [place]-3 Fatty Acids (Fish Oil 1000 mg) 1 Cap Cap 1000 MG PO DAILY Nutritional Supplement Pantoprazole (Protonix) 20 Mg Tab 20 MG PO DAILY Reflux #30 Ref 0 TAB Quetiapine (Quetiapine) 25 Mg Tab 25 MG PO BID@09,12 Agitation #60 TAB Rivastigmine Patch (Exelon Patch) 4.6 mg/24 hr Patch 1 PATCH TD DAILY Agitation #30 PATCH Simvastatin (Zocor) 80 Mg Tab 80 MG PO DAILY Cholesterol Management #30 Ref 0 TAB Sodium Phosphates (Enema Disposable) 1 Rika Rika 1 APPLIC NC DIRECTED PRN IF NO RESULTS 1 DAY AFTER SUPP Discontinued Medications: Apixaban (Eliquis) 5 Mg Tab 5 MG PO BID Blood Clot Prevention #60 Ref 0 TAB Cholecalciferol (D3) 1,000 Unit Cap 1000 UNITS PO DAILY Nutritional Supplement Lactobacillus Acidophilus (Acidophilus/l-Sporogenes) 1 Tab Tab 1 TAB PO TID Diarrhea #90 TAB Trazodone (Trazodone) 50 Mg Tab 50 MG PO HS Control Depression #30 Ref 0 TAB Vancomycin (Vancomycin) 125 Mg Cap 125 MG PO QID C-DIFF Ref 0 CAP Shivani Mendoza Dec 09, 2016 17:03
[2016-12-09 18:54] LABS: C. DIFF EPI 027 PRESUMPTIVE POSITIVE (NEGATIVE); C. DIFF TOXIN PCR POSITIVE (NEGATIVE)
== END 2016-12-09 19:50 | disposition hospice, inpatient (51) ==
LOC: NEPC 11:25 → NEDA 15:54 → NEPFCDU 23:59 → N05A 12-02 05:56 → N05B 12-07 15:14
PROVIDERS: ADMIT Family Medicine; ATTEND Family Medicine
DX: R41.82 Altered mental status, unspecified (principal); F02.81 Dementia in other diseases classified elsewhere, unspecified severity, with behavioral disturbance; G30.1 Alzheimer's disease with late onset; S70.02XA Contusion of left hip, initial encounter; S01.81XA Laceration without foreign body of other part of head, initial encounter; W19.XXXA Unspecified fall, initial encounter; R62.7 Adult failure to thrive; I10 Essential (primary) hypertension; I25.2 Old myocardial infarction; I25.5 Ischemic cardiomyopathy; E78.5 Hyperlipidemia, unspecified; I44.2 Atrioventricular block, complete; I48.91 Unspecified atrial fibrillation; R45.1 Restlessness and agitation; I25.10 Atherosclerotic heart disease of native coronary artery without angina pectoris; Z95.0 Presence of cardiac pacemaker; Z92.3 Personal history of irradiation; Z85.72 Personal history of non-Hodgkin lymphomas; Z87.891 Personal history of nicotine dependence; Z79.01 Long term (current) use of anticoagulants
CPT/HCPCS: 70450; 71010; 72125; 72170; 73552; 80048; 80053; 81001; 82550; 82552; 83735; 84134; 84484; 85007; 85025; 85027; 85610; 85730; 87086; 87493; 93005; 96360; 99285; G0378; J7030; J7070; 76937